=== PATIENT | female | born 1935 | race Caucasian/White ===

== ENCOUNTER 2023-10-05 11:08 | Inpatient (IN) ==
[2023-10-05 13:38] LABS: BASOPHILS % (AUTO) 0.6 % (0.2-1.0); EOSINOPHILS # (AUTO) 0.1 x10^3/uL (0.0-0.2); HEMATOCRIT 35.9 % (36.0-47.0); HEMOGLOBIN 11.9 g/dL (12.0-16.0); LYMPHOCYTES # (AUTO) 0.8 X10^3/uL (1.3-2.9); LYMPHOCYTES % (AUTO) 13.7 % (21.0-51.0); MEAN CORPUSCULAR HEMOGLOBIN 31.8 pg (27.0-34.0); MEAN CORPUSCULAR HGB CONC 33.3 g/dL (33.0-35.0); MEAN CORPUSCULAR VOLUME 95.5 fL (80.0-100.0); MEAN PLATELET VOLUME 7.2 fL (7.4-11.0); MONOCYTES # (AUTO) 0.5 x10^3/uL (0.3-0.8); NEUTROPHILS # (AUTO) 4.2 x10^3/uL (2.2-4.8); NEUTROPHILS % (AUTO) 74.7 % (42.0-75.0); PLATELET COUNT 202 X10^3/uL (150.0-450.0); RED BLOOD COUNT 3.76 X10^6/uL (3.5-5.4); RED CELL DISTRIBUTION WIDTH 15.6 % (11.6-16.5); WHITE BLOOD COUNT 5.6 X10^3/uL (3.6-10.0)
[2023-10-05 13:47] LABS: ALANINE AMINOTRANSFERASE 30 Units/L (12-78); ALBUMIN 2.9 g/dL (3.4-5.0); ALKALINE PHOSPHATASE 120 Units/L (46-116); ASPARTATE AMINO TRANSFERASE 27 Units/L (15-37); BLOOD UREA NITROGEN 12 mg/dL (7-18); CALCIUM 8.4 mg/dL (8.5-10.1); CARBON DIOXIDE 27.2 mmol/L (21-32); CHLORIDE 104 mmol/L (98-107); COR CA(FOR HYPOALB) 9.3 mg/dL (8.5-10.1); CREATININE 0.69 mg/dL (0.55-1.02); GLUCOSE 86 mg/dL (65-99); POTASSIUM 4.4 mmol/L (3.5-5.1); SODIUM 137 mmol/L (136-145); TOTAL PROTEIN 6.4 g/dL (6.4-8.2); eGFR NON BLACK RACES > 60 (>60)
[2023-10-05] MEDS ORDERED: VANCOMYCIN IV *PREMIX 750 mg/150 ML BAG 750 MG/150 ML PIGGYBACK IV SCH (14:00)
[2023-10-05] MEDS ORDERED: PHARMACY CONSULT - VANCOMYCIN XX SCH (14:00)
[2023-10-05] MEDS: ZOSYN VIAL 3.375 GRAMS 3.375 G in NS 100 ML IV 100 ML IV SCH ×3 (14:09→21:11)
[2023-10-05] MEDS ORDERED: NS 250 ML IV 250 ML IV ONE (14:20)
[2023-10-05] MEDS: CLEOCIN 300 MG IV PREMIX 300 MG/50 ML BAG IV SCH ×2 (15:00→21:10)
[2023-10-05 16:49] VITALS: BMI 26.4
[2023-10-05] MEDS: VANCOMYCIN IV *PREMIX 750 mg/150 ML BAG 750 MG/150 ML PIGGYBACK IV SCH (18:27)
[2023-10-05] MEDS: PERCOCET TAB 5/325 MG PO PRN (19:52)
--- NOTE | 2023-10-05 23:48 | DR.CONSULT ---
CONSULT Consultation for Day of: Date: 10/05/23 Chief Complaint Chief Complaint: 88 year old female who I have seen in the past for bilateral iliac vein compression who has had bilateral iliac vein stenting. Patient now admitted with cellulitis and open small ulcers over the right anterior tibial surface. Previous history of deep Venous Thrombosis of the right leg many years ago. Patient on chronic anticoagulation. I was asked to see her in consultation. Patient past history of coronary artery disease that has multiple coronary stents placed and history [place] filter placement. Patient with known bilateral greater saphenous vein insufficiency and bilateral small saphenous vein insufficiency. She was supposed to have endo vascular laser ablation of these but she never presented back to my office for such. Allergies Allergies Allergy/AdvReac Type Severity Reaction Status Date / Time cefdinir Allergy Unknown Verified 05/10/22 11:31 levofloxacin [Levaquin] Allergy Unknown Verified 02/13/13 11:24 sulfacetamide Allergy Unknown Verified 05/10/22 11:31 sulfamethoxazole [Septra] Allergy Unknown Verified 03/29/22 12:57 trimethoprim [Septra] Allergy Unknown Verified 03/29/22 12:57 nitrofurantoin Allergy Verified 08/29/21 09:16 [From Macrobid] Sulfa (Sulfonamide Allergy Verified 08/29/21 09:16 Antibiotics) [SULFA] Microbore Extension Set Allergy Unknown Uncoded 02/13/13 11:24 *MEDIC History of Present Illness History of Present Illness: See above Patient admitted for IV antibiotics . Past Medical History Past Medical History: Coronary Artery Disease, Dyslipidemia, Hypertension and Hypothyroidism Past Surgical History Surgical History: Angioplasty/Stents, Hysterectomy and Other (history of [place] filter placement, history of bilateral iliac vein stenting. ) Family History Family Medical History: Coronary Artery Disease Social History Does patient currently use any type of tobacco product: No Have you used tobacco products in the last 12 months: No Type of Tobacco Use: None Does any household member use tobacco: No Alcohol Use: None Drug Use: None Medications Home Medications: cefdinir Allergy (Unknown, Verified 05/10/22 11:31) levofloxacin [Levaquin] Allergy (Unknown, Verified 02/13/13 11:24) sulfacetamide Allergy (Unknown, Verified 05/10/22 11:31) sulfamethoxazole [Septra] Allergy (Unknown, Verified 03/29/22 12:57) trimethoprim [Septra] Allergy (Unknown, Verified 03/29/22 12:57) nitrofurantoin [From Macrobid] Allergy (Verified 08/29/21 09:16) Sulfa (Sulfonamide Antibiotics) [SULFA] Allergy (Verified 08/29/21 09:16) Microbore Extension Set *MEDIC Allergy (Unknown, Uncoded 02/13/13 11:24) CONTINUE taking the following medications levothyroxine 50 mcg tablet 50 mcg PO 0700 10/05/23 [History] Coumadin 2 mg daily atorvastatin 40 mg daily Plavix 75 mg daily metoprolol 25 mg BID levothyroxine 137 micrograms daily Review of Systems Constitutional: See HPI Eyes: No Symptoms Reported ENT: No Symptoms Reported Respiratory: No Symptoms Reported Cardiovascular: No Symptoms Reported Gastrointestinal: No Symptoms Reported Genitourinary: Other (complaining of bilateral flank pain ) Musculoskeletal: See HPI Skin: See HPI Neurological: No Symptoms Reported Physical Exam Vital Signs: Vital Signs Temperature 97.7 F Temperature 97.7 F Pulse Rate 61 Pulse Rate 61 Pulse Rate 64 Pulse Rate 72 Pulse Rate 81 Pulse Rate 80 Pulse Rate 69 Respiratory Rate 20 Respiratory Rate 14 Respiratory Rate 17 Respiratory Rate 18 Respiratory Rate 18 Respiratory Rate 18 Respiratory Rate 16 Respiratory Rate 17 Respiratory Rate 17 Blood Pressure 125/60 Blood Pressure 117/57 Blood Pressure 118/55 Blood Pressure 151/68 Blood Pressure 140/73 Blood Pressure 161/76 Blood Pressure 134/62 O2 Sat by Pulse Oximetry 97 O2 Sat by Pulse Oximetry 95 O2 Sat by Pulse Oximetry 96 O2 Sat by Pulse Oximetry 97 O2 Sat by Pulse Oximetry 96 O2 Sat by Pulse Oximetry 96 O2 Sat by Pulse Oximetry 97 Oriented: Normal, Time, Person, Place and Other (patient lives at home , patient is morbidly obese ) Eyes: Normal Ear: Normal Nose: Normal Throat: Normal Respiratory: Clear Throughout Cardiovascular: Normal : Other (complains of bilateral flank pain, no obvious tenderness ) Auscultation: Bowel Sounds: Normal Palpation: Normal Tenderness: Normal Skin: Other (significant swelling both legs right greater than left. Mild er ythema right anterior tibial surface with multiple small ulcers each less than 1 cm over the anterior tibial surface ) Mood Description: Calm, Flat and Appropriate Affect: Normal Speech Pattern: Appropriate Plan (1) Chronic venous stasis dermatitis of both lower extremities: Status: Acute Plan: Patient on IV antibiotics. History of bilateral iliac vein stenting in the past. History of DVT right leg in the past. Known significant insufficiency of the greater saphenous veins and small saphenous veins which have yet to be addressed . Once [place] cellulitis is resolved can plan endo vascular laser treatment of these peripheral veins in my office later (2) Pain and swelling of lower extremity: Status: Acute Qualifiers: Laterality: left Qualified Code(s): M79.605 - Pain in left leg; M79.89 - Other specified soft tissue disorders Plan: as above (3) Coronary artery disease: Status: None Qualifiers: Coronary Disease-Associated Artery/Lesion type: unspecified vessel or lesion type [place] vs. transplanted heart: [place] heart Associated angina: with unspecified form of angina Qualified Code(s): I25.119 - Atherosclerotic heart disease of [place] coronary artery with unspecified angina pectoris Plan: stable (4) History of pulmonary embolism: Status: None Plan: Continue Plavix and begin Xarelto (5) Hypertension: Status: None Qualifiers: Hypertension type: primary hypertension Qualified Code(s): I10 - Essential (primary) hypertension Plan: home medicatiosn (6) Hyperlipidemia: Status: None Narrative Support Text: * Plan: home medicatiosn (7) Hypothyroidism: Status: None Plan: home medications
[2023-10-06] MEDS: CLEOCIN 300 MG IV PREMIX 300 MG/50 ML BAG IV SCH ×3 (05:08→21:08)
[2023-10-06] MEDS: VANCOMYCIN IV *PREMIX 750 mg/150 ML BAG 750 MG/150 ML PIGGYBACK IV SCH ×2 (05:08→20:11)
[2023-10-06] MEDS: ZOSYN VIAL 3.375 GRAMS 3.375 G in NS 100 ML IV 100 ML IV SCH ×3 (05:10→21:08)
[2023-10-06 05:31] LABS: BASOPHILS # (AUTO) 0.1 X10^3/uL (0.0-0.1); BASOPHILS % (AUTO) 2.9 % (0.2-1.0); EOSINOPHILS # (AUTO) 0.2 x10^3/uL (0.0-0.2); EOSINOPHILS % (AUTO) 4.3 % (0.9-2.9); HEMATOCRIT 31.8 % (36.0-47.0); HEMOGLOBIN 10.6 g/dL (12.0-16.0); LYMPHOCYTES # (AUTO) 0.8 X10^3/uL (1.3-2.9); LYMPHOCYTES % (AUTO) 15.9 % (21.0-51.0); MEAN CORPUSCULAR HEMOGLOBIN 31.4 pg (27.0-34.0); MEAN CORPUSCULAR HGB CONC 33.3 g/dL (33.0-35.0); MEAN CORPUSCULAR VOLUME 94.4 fL (80.0-100.0); MEAN PLATELET VOLUME 7.7 fL (7.4-11.0); MONOCYTES # (AUTO) 0.5 x10^3/uL (0.3-0.8); MONOCYTES % (AUTO) 10.5 % (0.0-13.0); NEUTROPHILS # (AUTO) 3.3 x10^3/uL (2.2-4.8); NEUTROPHILS % (AUTO) 66.4 % (42.0-75.0); PLATELET COUNT 174 X10^3/uL (150.0-450.0); RED BLOOD COUNT 3.37 X10^6/uL (3.5-5.4); RED CELL DISTRIBUTION WIDTH 15.6 % (11.6-16.5); WHITE BLOOD COUNT 4.9 X10^3/uL (3.6-10.0)
[2023-10-06 05:47] LABS: ALANINE AMINOTRANSFERASE 22 Units/L (12-78); ALBUMIN 2.6 g/dL (3.4-5.0); ALKALINE PHOSPHATASE 105 Units/L (46-116); ASPARTATE AMINO TRANSFERASE 22 Units/L (15-37); BLOOD UREA NITROGEN 11 mg/dL (7-18); CALCIUM 8.2 mg/dL (8.5-10.1); CARBON DIOXIDE 27.2 mmol/L (21-32); CHLORIDE 106 mmol/L (98-107); COR CA(FOR HYPOALB) 9.3 mg/dL (8.5-10.1); CREATININE 0.71 mg/dL (0.55-1.02); GLUCOSE 79 mg/dL (65-99); POTASSIUM 3.9 mmol/L (3.5-5.1); SODIUM 139 mmol/L (136-145); TOTAL PROTEIN 5.7 g/dL (6.4-8.2); eGFR NON BLACK RACES > 60 (>60)
[2023-10-06] MEDS: SYNTHROID 137 mcg TAB PO SCH (05:47)
[2023-10-06] MEDS: PERCOCET TAB 5/325 MG PO PRN ×2 (05:48→18:58)
[2023-10-06] MEDS ORDERED: XARELTO PO SCH (09:00)
[2023-10-06] MEDS ORDERED: LIPITOR TAB 40 MG PO SCH (09:00)
[2023-10-06] MEDS: LOPRESSOR TAB 25 MG PO SCH ×2 (09:26→20:11)
[2023-10-06] MEDS: PLAVIX PO SCH (09:26)
--- NOTE | 2023-10-06 09:44 | VAS ---
EXAM:LEVBILBCHRight lower extremity DVT Doppler ultrasound examination.HISTORY:JOSE LOWER EXT SWELLING, CELLULITIS RLE; Lower extremity pain, swelling, and edemaCOMPARISON:None.TECHNIQUE:Ultrasoun d of the deep venous vasculature of the right lower extremity was performed. Color and spectral doppler imaging was utilized.FINDINGS:The deep veins of the right lower extremity demonstrate an occlusive DVT which extends from right common femoral vein into right popliteal vein.No DVT seen within the deep venous system of the left lower extremity in this patient.These results were communicated to the clinical service at the time of this report by call support.IMPRESSION:Positive examination for DVT.There is an occlusive DVT in the right lower extremity which extends from the right common femoral vein into the right popliteal vein.No DVT is appreciated within the deep venous system of the left lower extremity.THIS IS AN ELECTRONICALLY VERIFIED FINAL REPORT10/06/2023 9:41 AM - Electronically signed by Noah Byrd
[2023-10-06 11:12] LABS: BILIRUBIN,URINE NEGATIVE (NEGATIVE); BLOOD/HEMOGLOBIN,URINE 2+ (NEGATIVE); GLUCOSE, URINE NEGATIVE (NEGATIVE); KETONES,URINE NEGATIVE (NEGATIVE); LEUKOCYTE ESTERASE ,URINE 1+ (NEGATIVE); NITRITES,URINE NEGATIVE (NEGATIVE); PROTEIN,URINE 1+ (NEGATIVE); UROBILINOGEN,URINE NORMAL (NORMAL)
--- NOTE | 2023-10-06 11:15 | DR.H&P ---
H&P History & Physical for Day of: H&P Date: 10/05/23 Chief Complaint Chief Complaint: worsening LE redness and swelling Allergies Allergies Allergy/AdvReac Type Severity Reaction Status Date / Time cefdinir Allergy Unknown Verified 05/10/22 11:31 levofloxacin [Levaquin] Allergy Unknown Verified 02/13/13 11:24 sulfacetamide Allergy Unknown Verified 05/10/22 11:31 sulfamethoxazole [Septra] Allergy Unknown Verified 03/29/22 12:57 trimethoprim [Septra] Allergy Unknown Verified 03/29/22 12:57 nitrofurantoin Allergy Verified 08/29/21 09:16 [From Macrobid] Sulfa (Sulfonamide Allergy Verified 08/29/21 09:16 Antibiotics) [SULFA] Microbore Extension Set Allergy Unknown Uncoded 02/13/13 11:24 *MEDIC History of Present Illness History of Present Illness: Ms Linder is a 88y/o female with a PMH of CAD, PVD s/p stenting, chronic venous insufficiency, hx of DVT, IVC filter presented with worsening LE redness and swelling. Patient has had recurrent admissions for LE cellulitis. She it not much ambulatory and lives alone. Son states she has not been able to take care of herself. She has been having clear drainage from the right leg. She was admitted for IV antibiotics and evaluation by surgery. Labs/imaging reviewed Plan: routine labs CBC, CMP. Consult surgery. Wound care as per nursing, keep leg elevated. Start IV Vancomycin, clindamycin and Zosyn. Resume home medications. Monitor AM labs/imaging. Past Medical History Past Medical History: Coronary Artery Disease, Dyslipidemia, Hypertension and Hypothyroidism Past Surgical History Surgical History: Angioplasty/Stents, Hysterectomy and Other (history of [place] filter placement, history of bilateral iliac vein stenting. ) Family History Family Medical History: Coronary Artery Disease Social History Does patient currently use any type of tobacco product: No Have you used tobacco products in the last 12 months: No Type of Tobacco Use: None Does any household member use tobacco: No Alcohol Use: None Drug Use: None Medications Home Medications: Home Medications Medication Instructions Recorded Confirmed Type oxycodone-acetaminophen 5 mg-325 1 tab PO Q8H PRN pain 09/26/23 10/05/23 History mg tablet levothyroxine 50 mcg tablet 50 mcg PO 0700 10/05/23 10/05/23 History Labs 10/06/23 04:10 10/06/23 04:10 Labs: Laboratory WBC 4.9 X10^3/uL (3.6-10.0) 10/06/23 04:10 RBC 3.37 X10^6/uL (3.5-5.4) L 10/06/23 04:10 Hgb 10.6 g/dL (12.0-16.0) L 10/06/23 04:10 Hct 31.8 % (36.0-47.0) L 10/06/23 04:10 MCV 94.4 fL (80.0-100.0) 10/06/23 04:10 MCH 31.4 pg (27.0-34.0) 10/06/23 04:10 MCHC 33.3 g/dL (33.0-35.0) 10/06/23 04:10 RDW 15.6 % (11.6-16.5) 10/06/23 04:10 Plt Count 174 X10^3/uL (150.0-450.0) 10/06/23 04:10 MPV 7.7 fL (7.4-11.0) 10/06/23 04:10 Neut % (Auto) 66.4 % (42.0-75.0) 10/06/23 04:10 Lymph % (Auto) 15.9 % (21.0-51.0) L 10/06/23 04:10 [place] % (Auto) 10.5 % (0.0-13.0) 10/06/23 04:10 Eos % (Auto) 4.3 % (0.9-2.9) H 10/06/23 04:10 Baso % (Auto) 2.9 % (0.2-1.0) H 10/06/23 04:10 Neut # (Auto) 3.3 x10^3/uL (2.2-4.8) 10/06/23 04:10 Lymph # (Auto) 0.8 X10^3/uL (1.3-2.9) L 10/06/23 04:10 [place] # (Auto) 0.5 x10^3/uL (0.3-0.8) 10/06/23 04:10 Eos # (Auto) 0.2 x10^3/uL (0.0-0.2) 10/06/23 04:10 Baso # (Auto) 0.1 X10^3/uL (0.0-0.1) 10/06/23 04:10 Absolute Nucleated RBC 0.0 /100WBC 10/06/23 04:10 Sodium 139 mmol/L (136-145) 10/06/23 04:10 Corrected Sodium TNP 10/06/23 04:10 Potassium 3.9 mmol/L (3.5-5.1) 10/06/23 04:10 Chloride 106 mmol/L (98-107) 10/06/23 04:10 Carbon Dioxide 27.2 mmol/L (21-32) 10/06/23 04:10 BUN 11 mg/dL (7-18) 10/06/23 04:10 Creatinine 0.71 mg/dL (0.55-1.02) 10/06/23 04:10 Est GFR (MDRD) Af Amer > 60 (>60) 10/06/23 04:10 Est GFR (MDRD) Non-Af > 60 (>60) 10/06/23 04:10 Glucose 79 mg/dL (65-99) 10/06/23 04:10 Calcium 8.2 mg/dL (8.5-10.1) L 10/06/23 04:10 Corrected Calcium 9.3 mg/dL (8.5-10.1) 10/06/23 04:10 Total Bilirubin 0.50 mg/dL (0.2-1.0) 10/06/23 04:10 AST 22 Units/L (15-37) 10/06/23 04:10 ALT 22 Units/L (12-78) 10/06/23 04:10 Alkaline Phosphatase 105 Units/L (46-116) 10/06/23 04:10 Total Protein 5.7 g/dL (6.4-8.2) L 10/06/23 04:10 Albumin 2.6 g/dL (3.4-5.0) L 10/06/23 04:10 Globulin 3.1 g/dL (2.5-4.5) 10/06/23 04:10 Albumin/Globulin Ratio 0.8 Ratio (1.1-2.1) L 10/06/23 04:10 Review of Systems Constitutional: Weakness Eyes: No Symptoms Reported ENT: No Symptoms Reported Respiratory: No Symptoms Reported Cardiovascular: No Symptoms Reported Gastrointestinal: No Symptoms Reported Genitourinary: Other (complaining of bilateral flank pain ) Musculoskeletal: See HPI Skin: See HPI Neurological: No Symptoms Reported Physical Exam Vital Signs: Vital Signs Temperature 98.1 F Pulse Rate 77 Pulse Rate 71 Pulse Rate 71 Pulse Rate 56 Pulse Rate 68 Pulse Rate 77 Pulse Rate 66 Pulse Rate 66 Pulse Rate 62 Pulse Rate 69 Pulse Rate 62 Pulse Rate 62 Pulse Rate 59 Pulse Rate 62 Respiratory Rate 12 Respiratory Rate 14 Respiratory Rate 17 Respiratory Rate 13 Respiratory Rate 16 Respiratory Rate 18 Respiratory Rate 24 Respiratory Rate 18 Respiratory Rate 15 Respiratory Rate 18 Respiratory Rate 12 Respiratory Rate 20 Respiratory Rate 16 Respiratory Rate 22 Respiratory Rate 12 Respiratory Rate 18 Blood Pressure 106/56 Blood Pressure 130/63 Blood Pressure 95/50 Blood Pressure 122/65 Blood Pressure 122/65 Blood Pressure 128/66 Blood Pressure 128/65 Blood Pressure 124/58 Blood Pressure 124/58 Blood Pressure 117/62 Blood Pressure 117/62 Blood Pressure 111/55 Blood Pressure 111/55 O2 Sat by Pulse Oximetry 96 O2 Sat by Pulse Oximetry 99 O2 Sat by Pulse Oximetry 99 O2 Sat by Pulse Oximetry 95 O2 Sat by Pulse Oximetry 96 O2 Sat by Pulse Oximetry 96 O2 Sat by Pulse Oximetry 97 O2 Sat by Pulse Oximetry 97 O2 Sat by Pulse Oximetry 96 O2 Sat by Pulse Oximetry 97 O2 Sat by Pulse Oximetry 96 O2 Sat by Pulse Oximetry 97 O2 Sat by Pulse Oximetry 95 O2 Sat by Pulse Oximetry 97 Oriented: Normal Respiratory: Diminished Throughout Cardiovascular: Normal Auscultation: Bowel Sounds: Normal Palpation: Normal Musculoskeletal: Leg (B/L chronic edema. Right leg: worsening erythema, weeping blisters with clear fluid, tender ) Psychiatric: Normal Mood Description: Calm Affect: Normal Speech Pattern: Clear and Appropriate Assessment/Plan (1) Cellulitis: Qualifiers: Laterality: left Site of cellulitis: extremity Site of cellulitis of extremity: lower extremity Qualified Code(s): L03.116 - Cellulitis of left lower limb Status: Acute (2) Chronic venous stasis dermatitis of both lower extremities: Status: Acute (3) Chronic venous insufficiency: Status: Acute (4) Pain and swelling of lower extremity: Qualifiers: Laterality: left Qualified Code(s): M79.605 - Pain in left leg; M79.89 - Other specified soft tissue disorders Status: Acute (5) Generalized weakness: Status: Acute (6) Coronary artery disease: Qualifiers: Associated angina: with unspecified form of angina Coronary Disease- Associated Artery/Lesion type: unspecified vessel or lesion type [place] vs. transplanted heart: [place] heart Qualified Code(s): I25.119 - Atherosclerotic heart disease of [place] coronary artery with unspecified angina pectoris Status: None (7) History of pulmonary embolism: Status: None (8) Hypertension: Qualifiers: Hypertension type: primary hypertension Qualified Code(s): I10 - Essential (primary) hypertension Status: None
--- NOTE | 2023-10-06 11:20 | PCM.PROG ---
Progress Note Progress Note for Day of Date of Exam: 10/06/23 Subjective Subjective: Patient seen at bedside, no acute events overnight. She continues to have leg pain. Her right leg looks the same with erythema and clear drainage. LE US did show right leg DVT. She is currently receiving IV antibiotics and pain medicine. Labs/imaging reviewed US: RLE occlusive DVT Plan: continue current treatment with IV antibiotics. Follow surgery recommendations. Continue anti-coagulation and other home medications. Will place peres as patient is not able to ambulate to the bathroom or use a bed [place]. Monitor AM labs/imaging. Past Medical Family Social History Allergies: Allergies cefdinir Allergy (Unknown, Verified 05/10/22 11:31) Reason: Drug allergy levofloxacin [Levaquin] Allergy (Unknown, Verified 02/13/13 11:24) sulfacetamide Allergy (Unknown, Verified 05/10/22 11:31) Reason: Drug allergy sulfamethoxazole [Septra] Allergy (Unknown, Verified 03/29/22 12:57) Reason: Drug allergy trimethoprim [Septra] Allergy (Unknown, Verified 03/29/22 12:57) Reason: Drug allergy nitrofurantoin [From Macrobid] Allergy (Verified 08/29/21 09:16) Sulfa (Sulfonamide Antibiotics) [SULFA] Allergy (Verified 08/29/21 09:16) Microbore Extension Set *MEDIC Allergy (Unknown, Uncoded 02/13/13 11:24) Free Text Allergy: Microbore Extension Set *MEDICAL DEVICES* Vital Signs and I&O's Vital Signs: Vital Signs Temperature 98.1 F Pulse Rate 61 Pulse Rate 65 Pulse Rate 77 Pulse Rate 71 Pulse Rate 71 Pulse Rate 56 Pulse Rate 68 Pulse Rate 77 Pulse Rate 66 Pulse Rate 66 Pulse Rate 62 Pulse Rate 69 Respiratory Rate 22 Respiratory Rate 11 Respiratory Rate 12 Respiratory Rate 14 Respiratory Rate 17 Respiratory Rate 13 Respiratory Rate 16 Respiratory Rate 18 Respiratory Rate 24 Respiratory Rate 18 Respiratory Rate 15 Respiratory Rate 18 Respiratory Rate 12 Respiratory Rate 20 Blood Pressure 133/72 Blood Pressure 106/56 Blood Pressure 130/63 Blood Pressure 95/50 Blood Pressure 122/65 Blood Pressure 122/65 Blood Pressure 128/66 Blood Pressure 128/65 Blood Pressure 124/58 Blood Pressure 124/58 O2 Sat by Pulse Oximetry 98 O2 Sat by Pulse Oximetry 96 O2 Sat by Pulse Oximetry 96 O2 Sat by Pulse Oximetry 99 O2 Sat by Pulse Oximetry 99 O2 Sat by Pulse Oximetry 95 O2 Sat by Pulse Oximetry 96 O2 Sat by Pulse Oximetry 96 O2 Sat by Pulse Oximetry 97 O2 Sat by Pulse Oximetry 97 O2 Sat by Pulse Oximetry 96 O2 Sat by Pulse Oximetry 97 Intake and Output: Intake & Output 10/03/23 10/04/23 10/05/23 10/06/23 23:59 23:59 23:59 23:59 Intake Total 500 / 500 330 / 330 Output Total 400 / 400 Balance 100 / 100 330 / 330 Physical Exam Oriented: Normal Eyes: Normal Ear: Normal Nose: Normal Throat: Normal Cardiovascular: Normal Auscultation: Bowel Sounds: Normal Tenderness: Normal Skin: Other (significant swelling both legs right greater than left. Mild erythema right anterior tibial surface with multiple small ulcers each less than 1 cm over the anterior tibial surface ) Musculoskeletal: Leg (B/L chronic edema. Right leg: worsening erythema, weeping blisters with clear fluid, tender ) Psychiatric: Normal Mood Description: Calm Affect: Normal Speech Pattern: Clear and Appropriate Laboratory and Diagnostics 10/06/23 04:10 10/06/23 04:10 Labs: Laboratory WBC 4.9 X10^3/uL (3.6-10.0) 10/06/23 04:10 RBC 3.37 X10^6/uL (3.5-5.4) L 10/06/23 04:10 Hgb 10.6 g/dL (12.0-16.0) L 10/06/23 04:10 Hct 31.8 % (36.0-47.0) L 10/06/23 04:10 MCV 94.4 fL (80.0-100.0) 10/06/23 04:10 MCH 31.4 pg (27.0-34.0) 10/06/23 04:10 MCHC 33.3 g/dL (33.0-35.0) 10/06/23 04:10 RDW 15.6 % (11.6-16.5) 10/06/23 04:10 Plt Count 174 X10^3/uL (150.0-450.0) 10/06/23 04:10 MPV 7.7 fL (7.4-11.0) 10/06/23 04:10 Neut % (Auto) 66.4 % (42.0-75.0) 10/06/23 04:10 Lymph % (Auto) 15.9 % (21.0-51.0) L 10/06/23 04:10 [place] % (Auto) 10.5 % (0.0-13.0) 10/06/23 04:10 Eos % (Auto) 4.3 % (0.9-2.9) H 10/06/23 04:10 Baso % (Auto) 2.9 % (0.2-1.0) H 10/06/23 04:10 Neut # (Auto) 3.3 x10^3/uL (2.2-4.8) 10/06/23 04:10 Lymph # (Auto) 0.8 X10^3/uL (1.3-2.9) L 10/06/23 04:10 [place] # (Auto) 0.5 x10^3/uL (0.3-0.8) 10/06/23 04:10 Eos # (Auto) 0.2 x10^3/uL (0.0-0.2) 10/06/23 04:10 Baso # (Auto) 0.1 X10^3/uL (0.0-0.1) 10/06/23 04:10 Absolute Nucleated RBC 0.0 /100WBC 10/06/23 04:10 Sodium 139 mmol/L (136-145) 10/06/23 04:10 Corrected Sodium TNP 10/06/23 04:10 Potassium 3.9 mmol/L (3.5-5.1) 10/06/23 04:10 Chloride 106 mmol/L (98-107) 10/06/23 04:10 Carbon Dioxide 27.2 mmol/L (21-32) 10/06/23 04:10 BUN 11 mg/dL (7-18) 10/06/23 04:10 Creatinine 0.71 mg/dL (0.55-1.02) 10/06/23 04:10 Est GFR (MDRD) Af Amer > 60 (>60) 10/06/23 04:10 Est GFR (MDRD) Non-Af > 60 (>60) 10/06/23 04:10 Glucose 79 mg/dL (65-99) 10/06/23 04:10 Calcium 8.2 mg/dL (8.5-10.1) L 10/06/23 04:10 Corrected Calcium 9.3 mg/dL (8.5-10.1) 10/06/23 04:10 Total Bilirubin 0.50 mg/dL (0.2-1.0) 10/06/23 04:10 AST 22 Units/L (15-37) 10/06/23 04:10 ALT 22 Units/L (12-78) 10/06/23 04:10 Alkaline Phosphatase 105 Units/L (46-116) 10/06/23 04:10 Total Protein 5.7 g/dL (6.4-8.2) L 10/06/23 04:10 Albumin 2.6 g/dL (3.4-5.0) L 10/06/23 04:10 Globulin 3.1 g/dL (2.5-4.5) 10/06/23 04:10 Albumin/Globulin Ratio 0.8 Ratio (1.1-2.1) L 10/06/23 04:10 Plan (1) Cellulitis: Status: Acute Qualifiers: Laterality: left Site of cellulitis: extremity Site of cellulitis of extremity: lower extremity Qualified Code(s): L03.116 - Cellulitis of left lower limb (2) Chronic venous stasis dermatitis of both lower extremities: Status: Acute (3) Chronic venous insufficiency: Status: Acute (4) Pain and swelling of lower extremity: Status: Acute Qualifiers: Laterality: left Qualified Code(s): M79.605 - Pain in left leg; M79.89 - Other specified soft tissue disorders (5) Generalized weakness: Status: Acute (6) Coronary artery disease: Status: None Qualifiers: Associated angina: with unspecified form of angina Coronary Disease- Associated Artery/Lesion type: unspecified vessel or lesion type [place] vs. transplanted heart: [place] heart Qualified Code(s): I25.119 - Atherosclerotic heart disease of [place] coronary artery with unspecified angina pectoris (7) History of pulmonary embolism: Status: None (8) Hypertension: Status: None Qualifiers: Hypertension type: primary hypertension Qualified Code(s): I10 - Essential (primary) hypertension
[2023-10-06 11:25] LABS: APPEARANCE,URINE CLEAR (CLEAR); COLOR,URINE YELLOW (YELLOW)
[2023-10-06 11:27] LABS: BACTERIA,URINE 1+ /HPF (NEGATIVE); CALCIUM OXALATE CRYSTALS,UR MODERATE /HPF (NEGATIVE); SQUAMOUS EPITHELIAL CELL,UR MANY /HPF (NEGATIVE)
[2023-10-06] MEDS ORDERED: HEPARIN SODIUM INJ 5000 UNITS IVP ONE (13:00)
[2023-10-06 13:55] LABS: INR 1.36 (0.8-1.3)
[2023-10-06] MEDS: HEPARIN SODIUM IN D5W 25,000 UNITS/500 ML BAG IV PRN (14:00)
[2023-10-06] MEDS: LIPITOR TAB 40 MG PO SCH (20:11)
--- NOTE | 2023-10-06 23:56 | NOTE.SOAP ---
Soap Note Note for Day of Date of Exam: 10/06/23 Subjective Data Subjective Data: Patient a little more confused today. Objective Data Temperature: 98.2 F Pulse Rate: 54 Respiratory Rate: 16 Blood Pressure: 134/64 O2 Sat by Pulse Oximetry: 97 Objective Data: Right leg unchanged. Still with mild redness and small ulcers to the right anterior tibial surface. U/S shows new deep venous thrombosis of the entire right femoral vein. Assessment Assessment: DVT right leg Plan Plan: Begin heparin drip, stop po Xarelto. Will plan thrombolysis of the venous clot.
[2023-10-07 03:04] LABS: BASOPHILS # (AUTO) 0.1 X10^3/uL (0.0-0.1); BASOPHILS % (AUTO) 1.4 % (0.2-1.0); EOSINOPHILS # (AUTO) 0.2 x10^3/uL (0.0-0.2); EOSINOPHILS % (AUTO) 3.6 % (0.9-2.9); HEMATOCRIT 30.9 % (36.0-47.0); HEMOGLOBIN 10.3 g/dL (12.0-16.0); LYMPHOCYTES # (AUTO) 0.9 X10^3/uL (1.3-2.9); LYMPHOCYTES % (AUTO) 17.9 % (21.0-51.0); MEAN CORPUSCULAR HEMOGLOBIN 31.7 pg (27.0-34.0); MEAN CORPUSCULAR HGB CONC 33.4 g/dL (33.0-35.0); MEAN CORPUSCULAR VOLUME 94.8 fL (80.0-100.0); MEAN PLATELET VOLUME 7.5 fL (7.4-11.0); MONOCYTES # (AUTO) 0.5 x10^3/uL (0.3-0.8); MONOCYTES % (AUTO) 10.4 % (0.0-13.0); NEUTROPHILS # (AUTO) 3.5 x10^3/uL (2.2-4.8); NEUTROPHILS % (AUTO) 66.7 % (42.0-75.0); PLATELET COUNT 166 X10^3/uL (150.0-450.0); RED BLOOD COUNT 3.25 X10^6/uL (3.5-5.4); RED CELL DISTRIBUTION WIDTH 15.6 % (11.6-16.5); WHITE BLOOD COUNT 5.2 X10^3/uL (3.6-10.0)
[2023-10-07 03:07] LABS: ALANINE AMINOTRANSFERASE 19 Units/L (12-78); ALBUMIN 2.4 g/dL (3.4-5.0); ALKALINE PHOSPHATASE 98 Units/L (46-116); ASPARTATE AMINO TRANSFERASE 19 Units/L (15-37); BLOOD UREA NITROGEN 14 mg/dL (7-18); CALCIUM 7.9 mg/dL (8.5-10.1); CARBON DIOXIDE 24.1 mmol/L (21-32); CHLORIDE 105 mmol/L (98-107); COR CA(FOR HYPOALB) 9.2 mg/dL (8.5-10.1); COR NA(FOR HYPERGLY) 137 mmol/L (136-145); CREATININE 0.75 mg/dL (0.55-1.02); GLUCOSE 115 mg/dL (65-99); SODIUM 137 mmol/L (136-145); TOTAL PROTEIN 5.6 g/dL (6.4-8.2); eGFR NON BLACK RACES > 60 (>60)
[2023-10-07] MEDS ORDERED: HEPARIN SODIUM INJ 5000 UNITS IVP ONE ×2 (03:16→16:08)
[2023-10-07] MEDS: NS 500 ML IV 500 ML IV PRN (05:04)
[2023-10-07] MEDS: CLEOCIN 300 MG IV PREMIX 300 MG/50 ML BAG IV SCH ×3 (05:04→21:08)
[2023-10-07] MEDS: ZOSYN VIAL 3.375 GRAMS 3.375 G in NS 100 ML IV 100 ML IV SCH ×3 (05:04→21:08)
[2023-10-07] MEDS: SYNTHROID 137 mcg TAB PO SCH (05:31)
[2023-10-07] MEDS: PERCOCET TAB 5/325 MG PO PRN ×3 (06:23→20:10)
[2023-10-07] MEDS ORDERED: PHARMACY COMMENT IV NR (08:00)
[2023-10-07 08:44] LABS: CREATININE 0.65 mg/dL (0.55-1.02)
[2023-10-07] MEDS: PLAVIX PO SCH (09:35)
[2023-10-07] MEDS: VANCOMYCIN IV *PREMIX 750 mg/150 ML BAG 750 MG/150 ML PIGGYBACK IV SCH ×2 (09:40→20:09)
[2023-10-07] MEDS: LOPRESSOR TAB 25 MG PO SCH ×2 (10:00→20:10)
--- NOTE | 2023-10-07 10:05 | PCM.PROG ---
Progress Note Progress Note for Day of Date of Exam: 10/07/23 Subjective Subjective: Patient seen at bedside, no acute events overnight. She was started on heparin drip as per Dr Mccracken. He plans to do thrombolysis tomorrow for right leg DVT. She is currently receiving IV antibiotics and pain medicine. Her leg redness does look slightly better today. Labs/imaging reviewed US: RLE occlusive DVT Plan: continue current treatment with IV antibiotics. Follow surgery re commendations. Continue IV heparin. Plan for thrombolysis tomorrow. Add colace prn and melatonin. Monitor AM labs/imaging. Past Medical Family Social History Allergies: Allergies cefdinir Allergy (Unknown, Verified 05/10/22 11:31) Reason: Drug allergy levofloxacin [Levaquin] Allergy (Unknown, Verified 02/13/13 11:24) sulfacetamide Allergy (Unknown, Verified 05/10/22 11:31) Reason: Drug allergy sulfamethoxazole [Septra] Allergy (Unknown, Verified 03/29/22 12:57) Reason: Drug allergy trimethoprim [Septra] Allergy (Unknown, Verified 03/29/22 12:57) Reason: Drug allergy nitrofurantoin [From Macrobid] Allergy (Verified 08/29/21 09:16) Sulfa (Sulfonamide Antibiotics) [SULFA] Allergy (Verified 08/29/21 09:16) Microbore Extension Set *MEDIC Allergy (Unknown, Uncoded 02/13/13 11:24) Free Text Allergy: Microbore Extension Set *MEDICAL DEVICES* Vital Signs and I&O's Vital Signs: Vital Signs Temperature 97.3 F Temperature 97.7 F Pulse Rate 68 Pulse Rate 58 Pulse Rate 67 Pulse Rate 62 Pulse Rate 61 Pulse Rate 59 Respiratory Rate 20 Respiratory Rate 18 Respiratory Rate 20 Respiratory Rate 18 Respiratory Rate 20 Respiratory Rate 14 Respiratory Rate 18 Respiratory Rate 16 Blood Pressure 123/62 Blood Pressure 104/56 Blood Pressure 126/64 Blood Pressure 140/65 Blood Pressure 135/60 Blood Pressure 105/53 O2 Sat by Pulse Oximetry 95 O2 Sat by Pulse Oximetry 97 O2 Sat by Pulse Oximetry 100 O2 Sat by Pulse Oximetry 96 O2 Sat by Pulse Oximetry 97 O2 Sat by Pulse Oximetry 98 Intake and Output: Intake & Output 10/04/23 10/05/23 10/06/23 10/07/23 23:59 23:59 23:59 23:59 Intake Total 500 / 500 2530 / 2530 787 / 787 Output Total 400 / 400 950 / 950 450 / 450 Balance 100 / 100 1580 / 1580 337 / 337 Physical Exam Oriented: Normal Eyes: Normal Ear: Normal Nose: Normal Throat: Normal Cardiovascular: Normal Auscultation: Bowel Sounds: Normal Tenderness: Normal Skin: Other (significant swelling both legs right greater than left. Mild erythema right anterior tibial surface with multiple small ulcers each less than 1 cm over the anterior tibial surface ) Musculoskeletal: Leg (B/L chronic edema. Right leg: worsening erythema, weeping blisters with clear fluid, tender ) Psychiatric: Normal Mood Description: Calm Affect: Normal Speech Pattern: Clear and Appropriate Laboratory and Diagnostics 10/07/23 02:35 10/07/23 08:20 Labs: Laboratory WBC 5.2 X10^3/uL (3.6-10.0) 10/07/23 02:35 RBC 3.25 X10^6/uL (3.5-5.4) L 10/07/23 02:35 Hgb 10.3 g/dL (12.0-16.0) L 10/07/23 02:35 Hct 30.9 % (36.0-47.0) L 10/07/23 02:35 MCV 94.8 fL (80.0-100.0) 10/07/23 02:35 MCH 31.7 pg (27.0-34.0) 10/07/23 02:35 MCHC 33.4 g/dL (33.0-35.0) 10/07/23 02:35 RDW 15.6 % (11.6-16.5) 10/07/23 02:35 Plt Count 166 X10^3/uL (150.0-450.0) 10/07/23 02:35 MPV 7.5 fL (7.4-11.0) 10/07/23 02:35 Neut % (Auto) 66.7 % (42.0-75.0) 10/07/23 02:35 Lymph % (Auto) 17.9 % (21.0-51.0) L 10/07/23 02:35 [place] % (Auto) 10.4 % (0.0-13.0) 10/07/23 02:35 Eos % (Auto) 3.6 % (0.9-2.9) H 10/07/23 02:35 Baso % (Auto) 1.4 % (0.2-1.0) H 10/07/23 02:35 Neut # (Auto) 3.5 x10^3/uL (2.2-4.8) 10/07/23 02:35 Lymph # (Auto) 0.9 X10^3/uL (1.3-2.9) L 10/07/23 02:35 [place] # (Auto) 0.5 x10^3/uL (0.3-0.8) 10/07/23 02:35 Eos # (Auto) 0.2 x10^3/uL (0.0-0.2) 10/07/23 02:35 Baso # (Auto) 0.1 X10^3/uL (0.0-0.1) 10/07/23 02:35 Absolute Nucleated RBC 0.0 /100WBC 10/07/23 02:35 PT 16.6 SECONDS (11.8-14.3) 10/06/23 13:30 INR Target Range - 10/06/23 13:30 INR 1.36 (0.8-1.3) H 10/06/23 13:30 APTT 115.6 SECONDS (22.9-36.5) H 10/07/23 08:20 PTT Comment - 10/07/23 08:20 Sodium 137 mmol/L (136-145) 10/07/23 02:35 Corrected Sodium 137 mmol/L (136-145) 10/07/23 02:35 Potassium 4.0 mmol/L (3.5-5.1) 10/07/23 02:35 Chloride 105 mmol/L (98-107) 10/07/23 02:35 Carbon Dioxide 24.1 mmol/L (21-32) 10/07/23 02:35 BUN 14 mg/dL (7-18) 10/07/23 02:35 Creatinine 0.65 mg/dL (0.55-1.02) 10/07/23 08:20 Est GFR (MDRD) Af Amer > 60 (>60) 10/07/23 02:35 Est GFR (MDRD) Non-Af > 60 (>60) 10/07/23 02:35 Glucose 115 mg/dL (65-99) H 10/07/23 02:35 Calcium 7.9 mg/dL (8.5-10.1) L 10/07/23 02:35 Corrected Calcium 9.2 mg/dL (8.5-10.1) 10/07/23 02:35 Total Bilirubin 0.50 mg/dL (0.2-1.0) 10/07/23 02:35 AST 19 Units/L (15-37) 10/07/23 02:35 ALT 19 Units/L (12-78) 10/07/23 02:35 Alkaline Phosphatase 98 Units/L (46-116) 10/07/23 02:35 Total Protein 5.6 g/dL (6.4-8.2) L 10/07/23 02:35 Albumin 2.4 g/dL (3.4-5.0) L 10/07/23 02:35 Globulin 3.2 g/dL (2.5-4.5) 10/07/23 02:35 Albumin/Globulin Ratio 0.8 Ratio (1.1-2.1) L 10/07/23 02:35 Specimen Type Catherized urine 10/06/23 11:00 Urine Color Yellow (YELLOW) 10/06/23 11:00 Urine Appearance Clear (CLEAR) 10/06/23 11:00 Urine pH 5.0 (5.0 - 8.0) 10/06/23 11:00 Ur Specific [place] 1.020 (1.000-1.030) 10/06/23 11:00 Urine Protein 1+ (NEGATIVE) 10/06/23 11:00 Urine Glucose (UA) Negative (NEGATIVE) 10/06/23 11:00 Urine Ketones Negative (NEGATIVE) 10/06/23 11:00 Urine Blood 2+ (NEGATIVE) 10/06/23 11:00 Urine Nitrite Negative (NEGATIVE) 10/06/23 11:00 Urine Bilirubin Negative (NEGATIVE) 10/06/23 11:00 Urine Urobilinogen Normal (NORMAL) 10/06/23 11:00 Ur Leukocyte Esterase 1+ (NEGATIVE) 10/06/23 11:00 Urine RBC 10-20 /HPF (0-3) A 10/06/23 11:00 Urine WBC 5-10 /HPF (0-5) A 10/06/23 11:00 Ur Squamous Epith Cells Many /HPF (NEGATIVE) 10/06/23 11:00 Calcium Oxalate Crystal Moderate /HPF (NEGATIVE) 10/06/23 11:00 Urine Bacteria 1+ /HPF (NEGATIVE) 10/06/23 11:00 Ur Culture Indicated? No/not indicated 10/06/23 11:00 Vancomycin Trough 11.0 ug/mL (15-20) L 10/07/23 08:20 Plan (1) Right leg DVT: Status: Acute Qualifiers: Affected thrombotic vein of extremity: unspecified vein of extremity Chronicity: acute Qualified Code(s): I82.401 - Acute embolism and thrombosis of unspecified deep veins of right lower extremity (2) Cellulitis: Status: Acute Qualifiers: Laterality: left Site of cellulitis: extremity Site of cellulitis of extremity: lower extremity Qualified Code(s): L03.116 - Cellulitis of left lower limb (3) Chronic venous stasis dermatitis of both lower extremities: Status: Acute (4) Chronic venous insufficiency: Status: Acute (5) Pain and swelling of lower extremity: Status: Acute Qualifiers: Laterality: left Qualified Code(s): M79.605 - Pain in left leg; M79.89 - Other specified soft tissue disorders (6) Generalized weakness: Status: Acute (7) Coronary artery disease: Status: None Qualifiers: Associated angina: with unspecified form of angina Coronary Disease- Associated Artery/Lesion type: unspecified vessel or lesion type [place] vs. transplanted heart: [place] heart Qualified Code(s): I25.119 - Atherosclerotic heart disease of [place] coronary artery with unspecified angina pectoris (8) History of pulmonary embolism: Status: None (9) Hypertension: Status: None Qualifiers: Hypertension type: primary hypertension Qualified Code(s): I10 - Essential (primary) hypertension
[2023-10-07] MEDS: COLACE SYRUP 100 MG UDC PO SCH (12:00)
[2023-10-07] MEDS ORDERED: HIBICLENS WASH EXT ONE (19:46)
[2023-10-07] MEDS: LIPITOR TAB 40 MG PO SCH (20:09)
[2023-10-07] MEDS: MELATONIN PO SCH (20:10)
[2023-10-08 04:28] LABS: BASOPHILS % (AUTO) 0.4 % (0.2-1.0); EOSINOPHILS # (AUTO) 0.1 x10^3/uL (0.0-0.2); EOSINOPHILS % (AUTO) 1.4 % (0.9-2.9); HEMOGLOBIN 10.7 g/dL (12.0-16.0); LYMPHOCYTES # (AUTO) 0.8 X10^3/uL (1.3-2.9); LYMPHOCYTES % (AUTO) 10.9 % (21.0-51.0); MEAN CORPUSCULAR HEMOGLOBIN 31.6 pg (27.0-34.0); MEAN CORPUSCULAR HGB CONC 33.3 g/dL (33.0-35.0); MEAN PLATELET VOLUME 7.3 fL (7.4-11.0); MONOCYTES # (AUTO) 0.8 x10^3/uL (0.3-0.8); MONOCYTES % (AUTO) 11.6 % (0.0-13.0); NEUTROPHILS # (AUTO) 5.3 x10^3/uL (2.2-4.8); NEUTROPHILS % (AUTO) 75.7 % (42.0-75.0); PLATELET COUNT 182 X10^3/uL (150.0-450.0); RED BLOOD COUNT 3.37 X10^6/uL (3.5-5.4); RED CELL DISTRIBUTION WIDTH 15.9 % (11.6-16.5)
[2023-10-08 04:36] LABS: ALANINE AMINOTRANSFERASE 17 Units/L (12-78); ALBUMIN 2.3 g/dL (3.4-5.0); ALKALINE PHOSPHATASE 91 Units/L (46-116); ASPARTATE AMINO TRANSFERASE 17 Units/L (15-37); BLOOD UREA NITROGEN 10 mg/dL (7-18); CALCIUM 7.8 mg/dL (8.5-10.1); CHLORIDE 105 mmol/L (98-107); COR CA(FOR HYPOALB) 9.2 mg/dL (8.5-10.1); CREATININE 0.66 mg/dL (0.55-1.02); GLUCOSE 105 mg/dL (65-99); POTASSIUM 3.9 mmol/L (3.5-5.1); SODIUM 136 mmol/L (136-145); TOTAL PROTEIN 5.5 g/dL (6.4-8.2); eGFR NON BLACK RACES > 60 (>60)
[2023-10-08] MEDS: CLEOCIN 300 MG IV PREMIX 300 MG/50 ML BAG IV SCH ×3 (05:03→22:36)
[2023-10-08] MEDS: ZOSYN VIAL 3.375 GRAMS 3.375 G in NS 100 ML IV 100 ML IV SCH ×3 (05:04→23:00)
[2023-10-08] MEDS: HEPARIN SODIUM IN D5W 25,000 UNITS/500 ML BAG IV PRN (05:26)
[2023-10-08] MEDS: SYNTHROID 137 mcg TAB PO SCH (06:08)
[2023-10-08] MEDS ORDERED: LR 1,000 ML IV 1,000 ML IV ONE (07:26)
[2023-10-08] MEDS ORDERED: MARCAINE 0.5% ONE (07:34)
[2023-10-08] MEDS ORDERED: HEPARIN SODIUM IN D5W 75,000 UNITS/1,500 ML BAG ONE (07:35)
[2023-10-08] MEDS ORDERED: HEPARIN SODIUM IN D5W 25,000 UNITS/500 ML BAG ONE ×2 (07:41→08:59)
[2023-10-08] MEDS ORDERED: ACTIVASE CATHFLO ONE (07:42)
[2023-10-08] MEDS ORDERED: NS 500 ML IV 500 ML IV ONE (07:42)
[2023-10-08] MEDS ORDERED: NOZIN NASAL SANITIZER TP ONE (07:48)
--- NOTE | 2023-10-08 08:00 | EKG ---
Test Reason : PACU Blood Pressure : */* mmHG Vent. Rate : 69 BPM Atrial Rate : 69 BPM P-R Int : 128 ms QRS Dur : 124 ms QT Int : 424 ms P-R-T Axes : 14 -2 29 degrees QTc Int : 454 ms Normal sinus rhythm Right bundle branch block Abnormal ECG No previous ECGs available Confirmed by Lester Torrez ([id number]) on 10/09/2023 7:27:25 AM Referred By: Confirmed By: Lester Torrez
[2023-10-08] MEDS ORDERED: AMIDATE INJ 40 MG VIAL ONE (08:03)
[2023-10-08] MEDS ORDERED: PEPCID 20 MG VIAL ONE (08:03)
[2023-10-08] MEDS ORDERED: ZOFRAN INJ 4 MG VIAL ONE (08:03)
[2023-10-08] MEDS ORDERED: OFIRMEV IV 1000 MG VIAL 1,000 MG/100 ML VIAL IV ONE (08:03)
[2023-10-08] MEDS ORDERED: BRIDION ONE (08:03)
[2023-10-08] MEDS ORDERED: ROBINUL ONE (08:03)
[2023-10-08] MEDS ORDERED: ZEMURON 100 MG VIAL ONE (08:03)
[2023-10-08] MEDS ORDERED: VERSED ONE (08:04)
[2023-10-08] MEDS ORDERED: FENTANYL VIAL INJ 100 mcg ONE (08:04)
[2023-10-08] MEDS ORDERED: DECADRON INJ ONE (08:06)
[2023-10-08] MEDS ORDERED: XYLOCAINE 2 % (PLAIN) ONE (08:06)
[2023-10-08] MEDS ORDERED: ULTANE GAS IN ONE (08:07)
[2023-10-08] MEDS ORDERED: KETAMINE HCL ONE (08:07)
--- NOTE | 2023-10-08 08:11 | RAD ---
EXAM:One-view chestHISTORY:Preop vascular surgeryCOMPARISON:07/13/2021FINDINGS:Pat ient is rotated to the right. Heart is enlarged. No congestive heart failure is noted. Aorta is mildly ectatic. [place] are normal. Lungs are free of acute infiltrates. No pleural effusions are identified. There is minimal subsegmental atelectasis in the right lung base. Bony thorax is unremarkable.IMPRESSION:Cardiomegaly without congestive heart failureNo acute infiltratesMinimal subsegmental atelectasis right lung baseTHIS IS AN ELECTRONICALLY VERIFIED FINAL REPORT10/08/2023 8:05 AM - Electronically signed by Juno Moser MD
[2023-10-08] MEDS ORDERED: LACRI-LUBE S.O.P. ONE (08:26)
[2023-10-08] MEDS ORDERED: VISIPAQUE 100 ML ONE (08:34)
[2023-10-08] MEDS ORDERED: HEPARIN SODIUM INJ 5000 UNITS ONE (08:43)
[2023-10-08] MEDS ORDERED: ATROPINE SULFATE ONE (09:11)
[2023-10-08] MEDS: ACTIVASE CATHFLO 12 MG in NS 250 ML IV 228 ML IV SCH ×2 (09:25→20:25)
[2023-10-08] MEDS ORDERED: BENADRYL INJ 50 MG VIAL IVP PRN (09:45)
[2023-10-08] MEDS ORDERED: DILAUDID INJ IVP PRN (09:45)
[2023-10-08] MEDS ORDERED: ZOFRAN INJ 4 MG VIAL IVP PRN (09:45)
[2023-10-08] MEDS: COLACE SYRUP 100 MG UDC PO SCH (10:33)
[2023-10-08] MEDS: LOPRESSOR TAB 25 MG PO SCH ×2 (10:34→22:25)
[2023-10-08] MEDS: PLAVIX PO SCH (10:34)
[2023-10-08] MEDS: VANCOMYCIN IV *PREMIX 750 mg/150 ML BAG 750 MG/150 ML PIGGYBACK IV SCH ×2 (10:45→20:48)
--- NOTE | 2023-10-08 11:10 | OR.IMMED ---
IMMEDIATE POST-OP NOTE Immediate Post-Op Note Pre-Op Diagnosis: Deep Venous Thrombosis of the right femoral vein with reconsti tution of the popliteal vein Post-Op Diagnosis: complete venous occlusion /thrombosis of the right iliac venous stent and the common right femoral vein. 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 This is different from what was noted on th ultrasound of the right leg Estimated Blood Loss: < 50 cc Complications: none Progress Notes: Will perform intravenous thrombolysis of the right femoral vein and right iliac vein with stent in place overnight. Discontinued tomorrow and transition to PO anticoagulation.
--- NOTE | 2023-10-08 11:30 | NOTE.SOAP ---
Soap Note Note for Day of Date of Exam: 10/07/23 Subjective Data Subjective Data: Patient with diagnosis of right common femoral vein and femoral vein Venous Thrombosis as identified by ultrasound. 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 Remains on Heparin drip. Still with significant swelling of the right leg and some redness. I believe most of the redness is due to hyperemia from the Venous Thrombosis and not infection. She is continued on IV antibiotics. Objective Data Temperature: 98.9 F Pulse Rate: 80 Respiratory Rate: 19 Blood Pressure: 136/66 O2 Sat by Pulse Oximetry: 96 Objective Data: 4 + pitting edema right leg with redness and smalll ulcers. Assessment Assessment: right lef DVT Plan Plan: Continuie heparin drip and plan placement EKOS catheter right leg tomorrow for intravenous thrombosis.
[2023-10-08] MEDS ORDERED: HEPARIN SODIUM IN D5W 25,000 UNITS/500 ML BAG INTRACATH PRN (12:11)
[2023-10-08] MEDS ORDERED: ACTIVASE CATHFLO 12 MG in NS 250 ML IV 228 ML INTRACATH ONE ×4 (12:11)
--- NOTE | 2023-10-08 12:27 | DR.OPNOTE ---
OP NOTE Pre-Op Diagnosis: Deep Venous Thrombosis of the entire right femoral vein with complete occlu Post-Op Diagnosis: DVT of the right iliac vein stent and right common femoral vein Procedure Date Date Of Procedure: 10/08/23 Procedure: PROCEDURE : PLACE RIGHT POPLITEAL VEIN EKOS THROMBOLYTIC CATHETER THROUGH THROMBOSIS OF RIGHT COMMON FEMORAL VEIN AND THROMBOSIS RIGHT ILIAC VEIN STENT FOR DIRECTED THROMBOLYSIS OF THESE AREAS OF RIGHT LEG VENOUS RETURN. NARRATIVE : Patient was taken to the operative suite and placed in the supine position. General endotracheal anesthesia induced and the patient turned over and placed in the prone position. Entire right leg prepped and draped in sterile fashion. Ultrasound used to identify the right popliteal vein and the skin overlying it infiltrated with 0.5% Marcaine . Ultrasound use to guide puncture of the right popliteal vein and a 0.012 inch guidewire placed. Incision made over the guide wire with a knife blade and a micro sheath placed into the politeal vein Venogram performed showing the superficial femoral vein to be patient. [place] catheter placed over the wire and taken up to the common femoral vein and repeat venogram showed complete occlusion of the common femoral vein and the right iliac vein stent. There was flow in the vena cava. There was a vena caval filter in the distal inferior vena cava.The micro sheath exchanged for a 10 Fr vascular sheath Intravascular ultrasound carried out confirming the extent of the clot from the common femoral vein through the right iliac vein and stent. EKOS catheter was placed over the wire, wire removed and the inner working core of the catheter placed. This was place on vibration. Patient bolused with 3 mg of IV TPA and began a drip throught the drug port of one milligram per hour, 30 ccs of saline per hour through the coolant port and heparin 500 units per hour through the side port of the introducer sheath. Patient turned over to the supine position, extubated and taken to the recovery room. From there she will be taken to the ICU for overnight thrombolysis. Type of Anesthesia: Local (0.5% Marcain) and General Anesthetic w/ETT Findings: Thrombosis of the right iliac vein stent with common femoral thrombosis and reconstitution of the right Superficial femoral vein Type of Fluids Used:: Lactated Ringers EBL: < 50 cc Complications:: none Needle/Sponge Count:: correct Disposition/Condition: Pt. tolerated procedure without difficulty. Extubated in the OR and taken to PACU in stable condition.
[2023-10-08] MEDS ORDERED: NS 500 ML IV 500 ML IV SCH (13:00)
[2023-10-08 13:06] LABS: BASOPHILS % (AUTO) 0.2 % (0.2-1.0); EOSINOPHILS % (AUTO) 0.3 % (0.9-2.9); HEMATOCRIT 31.1 % (36.0-47.0); HEMOGLOBIN 10.5 g/dL (12.0-16.0); LYMPHOCYTES # (AUTO) 0.5 X10^3/uL (1.3-2.9); LYMPHOCYTES % (AUTO) 5.8 % (21.0-51.0); MEAN CORPUSCULAR HEMOGLOBIN 32.1 pg (27.0-34.0); MEAN CORPUSCULAR HGB CONC 33.7 g/dL (33.0-35.0); MEAN CORPUSCULAR VOLUME 95.3 fL (80.0-100.0); MEAN PLATELET VOLUME 7.2 fL (7.4-11.0); MONOCYTES # (AUTO) 0.3 x10^3/uL (0.3-0.8); NEUTROPHILS # (AUTO) 7.2 x10^3/uL (2.2-4.8); NEUTROPHILS % (AUTO) 89.7 % (42.0-75.0); PLATELET COUNT 164 X10^3/uL (150.0-450.0); RED BLOOD COUNT 3.26 X10^6/uL (3.5-5.4); RED CELL DISTRIBUTION WIDTH 15.9 % (11.6-16.5)
[2023-10-08] MEDS: NS 500 ML IV 500 ML IV SCH (13:16)
[2023-10-08 20:14] LABS: BASOPHILS % (AUTO) 0.2 % (0.2-1.0); HEMATOCRIT 30.2 % (36.0-47.0); HEMOGLOBIN 10.3 g/dL (12.0-16.0); LYMPHOCYTES # (AUTO) 0.4 X10^3/uL (1.3-2.9); LYMPHOCYTES % (AUTO) 7.9 % (21.0-51.0); MEAN CORPUSCULAR HEMOGLOBIN 32.8 pg (27.0-34.0); MEAN CORPUSCULAR HGB CONC 34.2 g/dL (33.0-35.0); MEAN CORPUSCULAR VOLUME 95.9 fL (80.0-100.0); MEAN PLATELET VOLUME 7.4 fL (7.4-11.0); MONOCYTES # (AUTO) 0.5 x10^3/uL (0.3-0.8); MONOCYTES % (AUTO) 9.4 % (0.0-13.0); NEUTROPHILS # (AUTO) 4.7 x10^3/uL (2.2-4.8); NEUTROPHILS % (AUTO) 82.5 % (42.0-75.0); PLATELET COUNT 158 X10^3/uL (150.0-450.0); RED BLOOD COUNT 3.15 X10^6/uL (3.5-5.4); RED CELL DISTRIBUTION WIDTH 15.8 % (11.6-16.5); WHITE BLOOD COUNT 5.7 X10^3/uL (3.6-10.0)
[2023-10-08 20:36] LABS: CREATININE 1.06 mg/dL (0.55-1.02)
[2023-10-08] MEDS: LIPITOR TAB 40 MG PO SCH (20:45)
[2023-10-08] MEDS: MELATONIN PO SCH (20:45)
[2023-10-09] MEDS: PERCOCET TAB 5/325 MG PO PRN ×2 (01:41→17:52)
[2023-10-09] MEDS: NS 500 ML IV 500 ML IV SCH (02:02)
[2023-10-09 02:21] LABS: BASOPHILS % (AUTO) 0.2 % (0.2-1.0); HEMATOCRIT 29.2 % (36.0-47.0); HEMOGLOBIN 9.7 g/dL (12.0-16.0); LYMPHOCYTES # (AUTO) 0.6 X10^3/uL (1.3-2.9); LYMPHOCYTES % (AUTO) 9.1 % (21.0-51.0); MEAN CORPUSCULAR HEMOGLOBIN 31.9 pg (27.0-34.0); MEAN CORPUSCULAR HGB CONC 33.3 g/dL (33.0-35.0); MEAN CORPUSCULAR VOLUME 95.8 fL (80.0-100.0); MEAN PLATELET VOLUME 7.6 fL (7.4-11.0); MONOCYTES # (AUTO) 0.5 x10^3/uL (0.3-0.8); MONOCYTES % (AUTO) 7.4 % (0.0-13.0); NEUTROPHILS # (AUTO) 5.6 x10^3/uL (2.2-4.8); NEUTROPHILS % (AUTO) 83.3 % (42.0-75.0); PLATELET COUNT 151 X10^3/uL (150.0-450.0); RED BLOOD COUNT 3.05 X10^6/uL (3.5-5.4); RED CELL DISTRIBUTION WIDTH 15.5 % (11.6-16.5); WHITE BLOOD COUNT 6.7 X10^3/uL (3.6-10.0)
[2023-10-09] MEDS: ZOSYN VIAL 3.375 GRAMS 3.375 G in NS 100 ML IV 100 ML IV SCH ×3 (05:14→22:43)
[2023-10-09] MEDS: CLEOCIN 300 MG IV PREMIX 300 MG/50 ML BAG IV SCH ×3 (05:14→22:05)
[2023-10-09] MEDS: SYNTHROID 137 mcg TAB PO SCH (06:01)
--- NOTE | 2023-10-09 06:41 | PCM.PROG ---
Progress Note Progress Note for Day of Date of Exam: 10/08/23 Subjective Subjective: Patient at bedside. No acute events overnight. She was started on heparin drip as per Dr Mccracken. He plans to do thrombolysis this morning for right leg DVT. She is currently receiving IV antibiotics and pain medicine. Erythema of the leg has shown some improvement. Labs/imaging reviewed US: RLE occlusive DVT Plan: continue current treatment with IV antibiotics. Follow surgery rec ommendations. Continue IV heparin. Plan for thrombolysis this morning. Monitor AM labs/imaging. Past Medical Family Social History Allergies: Allergies cefdinir Allergy (Unknown, Verified 05/10/22 11:31) Reason: Drug allergy levofloxacin [Levaquin] Allergy (Unknown, Verified 02/13/13 11:24) sulfacetamide Allergy (Unknown, Verified 05/10/22 11:31) Reason: Drug allergy sulfamethoxazole [Septra] Allergy (Unknown, Verified 03/29/22 12:57) Reason: Drug allergy trimethoprim [Septra] Allergy (Unknown, Verified 03/29/22 12:57) Reason: Drug allergy nitrofurantoin [From Macrobid] Allergy (Verified 08/29/21 09:16) Sulfa (Sulfonamide Antibiotics) [SULFA] Allergy (Verified 08/29/21 09:16) Microbore Extension Set *MEDIC Allergy (Unknown, Uncoded 02/13/13 11:24) Free Text Allergy: Microbore Extension Set *MEDICAL DEVICES* Review of Systems ROS changes noted: see HPI Vital Signs and I&O's Vital Signs: Vital Signs Temperature 97.8 F Temperature 97.8 F Pulse Rate 63 Pulse Rate 49 Pulse Rate 59 Pulse Rate 60 Pulse Rate 56 Pulse Rate 52 Pulse Rate 48 Pulse Rate 49 Respiratory Rate 14 Respiratory Rate 15 Respiratory Rate 10 Respiratory Rate 11 Respiratory Rate 11 Respiratory Rate 15 Respiratory Rate 22 Respiratory Rate 25 Respiratory Rate 13 Respiratory Rate 20 Blood Pressure 93/50 Blood Pressure 93/53 Blood Pressure 100/52 Blood Pressure 101/51 Blood Pressure 106/54 Blood Pressure 116/56 Blood Pressure 120/53 Blood Pressure 142/62 O2 Sat by Pulse Oximetry 96 O2 Sat by Pulse Oximetry 95 O2 Sat by Pulse Oximetry 96 O2 Sat by Pulse Oximetry 95 O2 Sat by Pulse Oximetry 96 O2 Sat by Pulse Oximetry 97 O2 Sat by Pulse Oximetry 96 O2 Sat by Pulse Oximetry 97 Intake and Output: Intake & Output 10/06/23 10/07/23 10/08/23 10/09/23 23:59 23:59 23:59 23:59 Intake Total 2530 / 2530 1860 / 1860 3694 / 3741 743 / 743 Output Total 950 / 950 1850 / 1850 3225 / 3315 400 / 400 Balance 1580 / 1580 469 / 426 343 / 343 Physical Exam Oriented: Normal Eyes: Normal Ear: Normal Nose: Normal Throat: Normal Cardiovascular: Normal : Other (complains of bilateral flank pain, no obvious tenderness ) Auscultation: Bowel Sounds: Normal Tenderness: Normal Skin: Other (significant swelling both legs right greater than left. Mild erythema right anterior tibial surface with multiple small ulcers each less than 1 cm over the anterior tibial surface ) Musculoskeletal: Leg (B/L chronic edema. Right leg: worsening erythema, weeping blisters with clear fluid, tender ) Psychiatric: Normal Mood Description: Calm and Appropriate Affect: Normal Speech Pattern: Clear and Appropriate Laboratory and Diagnostics 10/09/23 02:00 10/08/23 20:05 Labs: Laboratory WBC 6.7 X10^3/uL (3.6-10.0) 10/09/23 02:00 RBC 3.05 X10^6/uL (3.5-5.4) L 10/09/23 02:00 Hgb 9.7 g/dL (12.0-16.0) L 10/09/23 02:00 Hct 29.2 % (36.0-47.0) L 10/09/23 02:00 MCV 95.8 fL (80.0-100.0) 10/09/23 02:00 MCH 31.9 pg (27.0-34.0) 10/09/23 02:00 MCHC 33.3 g/dL (33.0-35.0) 10/09/23 02:00 RDW 15.5 % (11.6-16.5) 10/09/23 02:00 Plt Count 151 X10^3/uL (150.0-450.0) 10/09/23 02:00 MPV 7.6 fL (7.4-11.0) 10/09/23 02:00 Neut % (Auto) 83.3 % (42.0-75.0) H 10/09/23 02:00 Lymph % (Auto) 9.1 % (21.0-51.0) L 10/09/23 02:00 [place] % (Auto) 7.4 % (0.0-13.0) 10/09/23 02:00 Eos % (Auto) 0.0 % (0.9-2.9) L 10/09/23 02:00 Baso % (Auto) 0.2 % (0.2-1.0) 10/09/23 02:00 Neut # (Auto) 5.6 x10^3/uL (2.2-4.8) H 10/09/23 02:00 Lymph # (Auto) 0.6 X10^3/uL (1.3-2.9) L 10/09/23 02:00 [place] # (Auto) 0.5 x10^3/uL (0.3-0.8) 10/09/23 02:00 Eos # (Auto) 0.0 x10^3/uL (0.0-0.2) 10/09/23 02:00 Baso # (Auto) 0.0 X10^3/uL (0.0-0.1) 10/09/23 02:00 Absolute Nucleated RBC 0.1 /100WBC 10/09/23 02:00 PT 16.6 SECONDS (11.8-14.3) 10/06/23 13:30 INR Target Range - 10/06/23 13:30 INR 1.36 (0.8-1.3) H 10/06/23 13:30 APTT 49.7 SECONDS (22.9-36.5) H 10/09/23 02:00 PTT Comment - 10/09/23 02:00 Fibrinogen 309 mg/dL (239-489) 10/09/23 02:00 Sodium 136 mmol/L (136-145) 10/08/23 04:05 Corrected Sodium TNP 10/08/23 04:05 Potassium 3.9 mmol/L (3.5-5.1) 10/08/23 04:05 Chloride 105 mmol/L (98-107) 10/08/23 04:05 Carbon Dioxide 25.0 mmol/L (21-32) 10/08/23 04:05 BUN 10 mg/dL (7-18) 10/08/23 04:05 Creatinine 1.06 mg/dL (0.55-1.02) H 10/08/23 20:05 Est GFR (MDRD) Af Amer > 60 (>60) 10/08/23 04:05 Est GFR (MDRD) Non-Af > 60 (>60) 10/08/23 04:05 Glucose 105 mg/dL (65-99) H 10/08/23 04:05 Calcium 7.8 mg/dL (8.5-10.1) L 10/08/23 04:05 Corrected Calcium 9.2 mg/dL (8.5-10.1) 10/08/23 04:05 Total Bilirubin 0.80 mg/dL (0.2-1.0) 10/08/23 04:05 AST 17 Units/L (15-37) 10/08/23 04:05 ALT 17 Units/L (12-78) 10/08/23 04:05 Alkaline Phosphatase 91 Units/L (46-116) 10/08/23 04:05 Total Protein 5.5 g/dL (6.4-8.2) L 10/08/23 04:05 Albumin 2.3 g/dL (3.4-5.0) L 10/08/23 04:05 Globulin 3.2 g/dL (2.5-4.5) 10/08/23 04:05 Albumin/Globulin Ratio 0.7 Ratio (1.1-2.1) L 10/08/23 04:05 Specimen Type Catherized urine 10/06/23 11:00 Urine Color Yellow (YELLOW) 10/06/23 11:00 Urine Appearance Clear (CLEAR) 10/06/23 11:00 Urine pH 5.0 (5.0 - 8.0) 10/06/23 11:00 Ur Specific [place] 1.020 (1.000-1.030) 10/06/23 11:00 Urine Protein 1+ (NEGATIVE) 10/06/23 11:00 Urine Glucose (UA) Negative (NEGATIVE) 10/06/23 11:00 Urine Ketones Negative (NEGATIVE) 10/06/23 11:00 Urine Blood 2+ (NEGATIVE) 10/06/23 11:00 Urine Nitrite Negative (NEGATIVE) 10/06/23 11:00 Urine Bilirubin Negative (NEGATIVE) 10/06/23 11:00 Urine Urobilinogen Normal (NORMAL) 10/06/23 11:00 Ur Leukocyte Esterase 1+ (NEGATIVE) 10/06/23 11:00 Urine RBC 10-20 /HPF (0-3) A 10/06/23 11:00 Urine WBC 5-10 /HPF (0-5) A 10/06/23 11:00 Ur Squamous Epith Cells Many /HPF (NEGATIVE) 10/06/23 11:00 Calcium Oxalate Crystal Moderate /HPF (NEGATIVE) 10/06/23 11:00 Urine Bacteria 1+ /HPF (NEGATIVE) 10/06/23 11:00 Ur Culture Indicated? No/not indicated 10/06/23 11:00 Vancomycin Trough 17.0 ug/mL (15-20) 10/08/23 20:05 Plan (1) Right leg DVT: Status: Acute Qualifiers: Affected thrombotic vein of extremity: unspecified vein of extremity Chronicity: acute Qualified Code(s): I82.401 - Acute embolism and thrombosis of unspecified deep veins of right lower extremity (2) Cellulitis: Status: Acute Qualifiers: Site of cellulitis: extremity Site of cellulitis of extremity: lower extremity Laterality: left Qualified Code(s): L03.116 - Cellulitis of left lower limb (3) Chronic venous stasis dermatitis of both lower extremities: Status: Acute (4) Chronic venous insufficiency: Status: Acute (5) Pain and swelling of lower extremity: Status: Acute Qualifiers: Laterality: left Qualified Code(s): M79.605 - Pain in left leg; M79.89 - Other specified soft tissue disorders (6) Generalized weakness: Status: Acute (7) Coronary artery disease: Status: None Qualifiers: Coronary Disease-Associated Artery/Lesion type: unspecified vessel or lesion type [place] vs. transplanted heart: [place] heart Associated angina: with unspecified form of angina Qualified Code(s): I25.119 - Atherosclerotic heart disease of [place] coronary artery with unspecified angina pectoris (8) History of pulmonary embolism: Status: None (9) Hypertension: Status: None Qualifiers: Hypertension type: primary hypertension Qualified Code(s): I10 - Essential (primary) hypertension
[2023-10-09 08:39] LABS: BASOPHILS % (AUTO) 0.3 % (0.2-1.0); EOSINOPHILS % (AUTO) 0.4 % (0.9-2.9); HEMOGLOBIN 9.4 g/dL (12.0-16.0); LYMPHOCYTES # (AUTO) 0.7 X10^3/uL (1.3-2.9); LYMPHOCYTES % (AUTO) 10.9 % (21.0-51.0); MEAN CORPUSCULAR HEMOGLOBIN 31.8 pg (27.0-34.0); MEAN CORPUSCULAR HGB CONC 33.5 g/dL (33.0-35.0); MEAN CORPUSCULAR VOLUME 94.8 fL (80.0-100.0); MEAN PLATELET VOLUME 7.5 fL (7.4-11.0); MONOCYTES # (AUTO) 0.7 x10^3/uL (0.3-0.8); MONOCYTES % (AUTO) 10.5 % (0.0-13.0); NEUTROPHILS # (AUTO) 5.3 x10^3/uL (2.2-4.8); NEUTROPHILS % (AUTO) 77.9 % (42.0-75.0); PLATELET COUNT 159 X10^3/uL (150.0-450.0); RED BLOOD COUNT 2.95 X10^6/uL (3.5-5.4); RED CELL DISTRIBUTION WIDTH 15.8 % (11.6-16.5); WHITE BLOOD COUNT 6.9 X10^3/uL (3.6-10.0)
[2023-10-09] MEDS: XARELTO PO SCH ×2 (09:45→20:53)
[2023-10-09] MEDS: PLAVIX PO SCH (09:45)
[2023-10-09] MEDS: COLACE SYRUP 100 MG UDC PO SCH (09:45)
[2023-10-09] MEDS: NS 500 ML IV 500 ML IV PRN (09:45)
[2023-10-09] MEDS: VANCOMYCIN IV *PREMIX 750 mg/150 ML BAG 750 MG/150 ML PIGGYBACK IV SCH ×2 (09:45→20:53)
[2023-10-09] MEDS: LOPRESSOR TAB 25 MG PO SCH ×2 (09:59→20:53)
[2023-10-09] MEDS: CHLORASEPTIC SPRAY MT PRN ×2 (10:30→16:30)
[2023-10-09] MEDS: TYLENOL 325 MG TAB PO PRN (14:07)
[2023-10-09] MEDS: MELATONIN PO SCH (20:53)
[2023-10-09] MEDS: LIPITOR TAB 40 MG PO SCH (20:54)
[2023-10-10 05:22] LABS: BASOPHILS % (AUTO) 0.2 % (0.2-1.0); EOSINOPHILS # (AUTO) 0.2 x10^3/uL (0.0-0.2); EOSINOPHILS % (AUTO) 2.3 % (0.9-2.9); HEMATOCRIT 32.1 % (36.0-47.0); HEMOGLOBIN 10.6 g/dL (12.0-16.0); LYMPHOCYTES # (AUTO) 0.7 X10^3/uL (1.3-2.9); LYMPHOCYTES % (AUTO) 10.3 % (21.0-51.0); MEAN CORPUSCULAR HEMOGLOBIN 31.4 pg (27.0-34.0); MEAN CORPUSCULAR HGB CONC 32.9 g/dL (33.0-35.0); MEAN CORPUSCULAR VOLUME 95.5 fL (80.0-100.0); MEAN PLATELET VOLUME 7.7 fL (7.4-11.0); MONOCYTES # (AUTO) 0.6 x10^3/uL (0.3-0.8); NEUTROPHILS # (AUTO) 5.6 x10^3/uL (2.2-4.8); NEUTROPHILS % (AUTO) 78.2 % (42.0-75.0); PLATELET COUNT 207 X10^3/uL (150.0-450.0); RED BLOOD COUNT 3.36 X10^6/uL (3.5-5.4); RED CELL DISTRIBUTION WIDTH 16.1 % (11.6-16.5); WHITE BLOOD COUNT 7.2 X10^3/uL (3.6-10.0)
[2023-10-10 05:41] LABS: ALANINE AMINOTRANSFERASE 19 Units/L (12-78); ALKALINE PHOSPHATASE 78 Units/L (46-116); ASPARTATE AMINO TRANSFERASE 34 Units/L (15-37); BLOOD UREA NITROGEN 16 mg/dL (7-18); CALCIUM 8.2 mg/dL (8.5-10.1); CARBON DIOXIDE 25.6 mmol/L (21-32); CHLORIDE 107 mmol/L (98-107); COR CA(FOR HYPOALB) 9.8 mg/dL (8.5-10.1); CREATININE 1.18 mg/dL (0.55-1.02); GLUCOSE 83 mg/dL (65-99); POTASSIUM 3.3 mmol/L (3.5-5.1); SODIUM 141 mmol/L (136-145); TOTAL PROTEIN 5.5 g/dL (6.4-8.2); eGFR NON BLACK RACES 46 (>60)
[2023-10-10] MEDS: CLEOCIN 300 MG IV PREMIX 300 MG/50 ML BAG IV SCH ×3 (05:54→21:08)
[2023-10-10] MEDS: ZOSYN VIAL 3.375 GRAMS 3.375 G in NS 100 ML IV 100 ML IV SCH ×3 (06:23→21:48)
[2023-10-10] MEDS: SYNTHROID 137 mcg TAB PO SCH (06:24)
[2023-10-10] MEDS ORDERED: PHARMACY COMMENT IV ONE (08:30)
[2023-10-10 08:50] LABS: CREATININE 1.3 mg/dL (0.55-1.02)
[2023-10-10] MEDS ORDERED: K-DUR TAB 20 MEQ PO ONE (09:00)
[2023-10-10] MEDS ORDERED: CONSULT PHARMACY - POTASSIUM & MAGNESIUM XX SCH (09:00)
[2023-10-10] MEDS: PLAVIX PO SCH (09:41)
[2023-10-10] MEDS: XARELTO PO SCH ×2 (09:41→21:09)
[2023-10-10] MEDS: COLACE SYRUP 100 MG UDC PO SCH (09:41)
[2023-10-10] MEDS: LOPRESSOR TAB 25 MG PO SCH ×2 (09:42→21:10)
[2023-10-10] MEDS: PERCOCET TAB 5/325 MG PO PRN ×2 (09:42→21:09)
[2023-10-10] MEDS: NS 500 ML IV 500 ML IV SCH (19:39)
[2023-10-10] MEDS: LIPITOR TAB 40 MG PO SCH (21:09)
[2023-10-10] MEDS: MELATONIN PO SCH (21:09)
[2023-10-11] MEDS: CLEOCIN 300 MG IV PREMIX 300 MG/50 ML BAG IV SCH ×3 (05:08→21:26)
[2023-10-11] MEDS: ZOSYN VIAL 3.375 GRAMS 3.375 G in NS 100 ML IV 100 ML IV SCH ×3 (05:35→21:25)
[2023-10-11] MEDS: SYNTHROID 137 mcg TAB PO SCH (05:36)
[2023-10-11 05:40] LABS: BASOPHILS % (AUTO) 0.7 % (0.2-1.0); EOSINOPHILS # (AUTO) 0.2 x10^3/uL (0.0-0.2); EOSINOPHILS % (AUTO) 3.2 % (0.9-2.9); HEMATOCRIT 28.9 % (36.0-47.0); HEMOGLOBIN 9.8 g/dL (12.0-16.0); LYMPHOCYTES # (AUTO) 0.8 X10^3/uL (1.3-2.9); LYMPHOCYTES % (AUTO) 12.3 % (21.0-51.0); MEAN CORPUSCULAR HEMOGLOBIN 32.1 pg (27.0-34.0); MEAN CORPUSCULAR HGB CONC 33.9 g/dL (33.0-35.0); MEAN CORPUSCULAR VOLUME 94.7 fL (80.0-100.0); MEAN PLATELET VOLUME 7.7 fL (7.4-11.0); MONOCYTES # (AUTO) 0.6 x10^3/uL (0.3-0.8); MONOCYTES % (AUTO) 9.5 % (0.0-13.0); NEUTROPHILS # (AUTO) 4.5 x10^3/uL (2.2-4.8); NEUTROPHILS % (AUTO) 74.3 % (42.0-75.0); PLATELET COUNT 221 X10^3/uL (150.0-450.0); RED BLOOD COUNT 3.05 X10^6/uL (3.5-5.4); RED CELL DISTRIBUTION WIDTH 16.1 % (11.6-16.5); WHITE BLOOD COUNT 6.1 X10^3/uL (3.6-10.0)
[2023-10-11 05:59] LABS: ALANINE AMINOTRANSFERASE 23 Units/L (12-78); ALBUMIN 1.8 g/dL (3.4-5.0); ALKALINE PHOSPHATASE 81 Units/L (46-116); ASPARTATE AMINO TRANSFERASE 30 Units/L (15-37); BLOOD UREA NITROGEN 13 mg/dL (7-18); CARBON DIOXIDE 24.9 mmol/L (21-32); CHLORIDE 109 mmol/L (98-107); COR CA(FOR HYPOALB) 9.8 mg/dL (8.5-10.1); CREATININE 1.05 mg/dL (0.55-1.02); GLUCOSE 90 mg/dL (65-99); POTASSIUM 3.4 mmol/L (3.5-5.1); SODIUM 140 mmol/L (136-145); TOTAL PROTEIN 5.1 g/dL (6.4-8.2); eGFR NON BLACK RACES 53 (>60)
--- NOTE | 2023-10-11 06:16 | PCM.PROG ---
Progress Note Progress Note for Day of Date of Exam: 10/09/23 Subjective Subjective: Patient at bedside. No acute events overnight. 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 She is currently receiving IV antibiotics and pain medicine. Erythema of the leg has shown some improvement. Labs/imaging reviewed US: RLE occlusive DVT Plan: continue current treatment with IV antibiotics. Follow surgery recommendations. Continue to monitor AM labs/imaging. Past Medical Family Social History Allergies: Allergies cefdinir Allergy (Unknown, Verified 05/10/22 11:31) Reason: Drug allergy levofloxacin [Levaquin] Allergy (Unknown, Verified 02/13/13 11:24) sulfacetamide Allergy (Unknown, Verified 05/10/22 11:31) Reason: Drug allergy sulfamethoxazole [Septra] Allergy (Unknown, Verified 03/29/22 12:57) Reason: Drug allergy trimethoprim [Septra] Allergy (Unknown, Verified 03/29/22 12:57) Reason: Drug allergy nitrofurantoin [From Macrobid] Allergy (Verified 08/29/21 09:16) Sulfa (Sulfonamide Antibiotics) [SULFA] Allergy (Verified 08/29/21 09:16) Microbore Extension Set *MEDIC Allergy (Unknown, Uncoded 02/13/13 11:24) Free Text Allergy: Microbore Extension Set *MEDICAL DEVICES* Review of Systems ROS changes noted: see HPI Vital Signs and I&O's Vital Signs: Vital Signs Temperature 98.5 F Temperature 98.7 F Pulse Rate 58 Pulse Rate 57 Pulse Rate 59 Pulse Rate 60 Pulse Rate 62 Pulse Rate 63 Pulse Rate 63 Respiratory Rate 15 Respiratory Rate 15 Respiratory Rate 17 Respiratory Rate 15 Respiratory Rate 14 Respiratory Rate 14 Respiratory Rate 16 Respiratory Rate 18 Blood Pressure 136/62 Blood Pressure 135/60 Blood Pressure 115/60 Blood Pressure 119/57 Blood Pressure 123/64 Blood Pressure 124/61 Blood Pressure 120/60 O2 Sat by Pulse Oximetry 94 O2 Sat by Pulse Oximetry 97 O2 Sat by Pulse Oximetry 93 O2 Sat by Pulse Oximetry 92 O2 Sat by Pulse Oximetry 93 O2 Sat by Pulse Oximetry 93 O2 Sat by Pulse Oximetry 90 Intake and Output: Intake & Output 10/08/23 10/09/23 10/10/23 10/11/23 23:59 23:59 23:59 23:59 Intake Total 3694 / 3741 2337 / 2359 2831 / 2831 350 / 350 Output Total 3225 / 3315 1716 / 1866 4270 / 4345 825 / 825 Balance 469 / 426 621 / 493 -1439 / -1514 -475 / -475 Physical Exam Oriented: Normal Eyes: Normal Ear: Normal Nose: Normal Throat: Normal Cardiovascular: Normal : Other (complains of bilateral flank pain, no obvious tenderness ) Auscultation: Bowel Sounds: Normal Tenderness: Normal Skin: Other (significant swelling both legs right greater than left. Mild erythema right anterior tibial surface with multiple small ulcers each less than 1 cm over the anterior tibial surface ) Musculoskeletal: Leg (B/L chronic edema. Right leg: worsening erythema, weeping blisters with clear fluid, tender ) Psychiatric: Normal Mood Description: Calm and Appropriate Affect: Normal Speech Pattern: Clear and Appropriate Laboratory and Diagnostics 10/11/23 04:42 10/11/23 04:42 Labs: Laboratory WBC 6.1 X10^3/uL (3.6-10.0) 10/11/23 04:42 RBC 3.05 X10^6/uL (3.5-5.4) L 10/11/23 04:42 Hgb 9.8 g/dL (12.0-16.0) L 10/11/23 04:42 Hct 28.9 % (36.0-47.0) L 10/11/23 04:42 MCV 94.7 fL (80.0-100.0) 10/11/23 04:42 MCH 32.1 pg (27.0-34.0) 10/11/23 04:42 MCHC 33.9 g/dL (33.0-35.0) 10/11/23 04:42 RDW 16.1 % (11.6-16.5) 10/11/23 04:42 Plt Count 221 X10^3/uL (150.0-450.0) 10/11/23 04:42 MPV 7.7 fL (7.4-11.0) 10/11/23 04:42 Neut % (Auto) 74.3 % (42.0-75.0) 10/11/23 04:42 Lymph % (Auto) 12.3 % (21.0-51.0) L 10/11/23 04:42 [place] % (Auto) 9.5 % (0.0-13.0) 10/11/23 04:42 Eos % (Auto) 3.2 % (0.9-2.9) H 10/11/23 04:42 Baso % (Auto) 0.7 % (0.2-1.0) 10/11/23 04:42 Neut # (Auto) 4.5 x10^3/uL (2.2-4.8) 10/11/23 04:42 Lymph # (Auto) 0.8 X10^3/uL (1.3-2.9) L 10/11/23 04:42 [place] # (Auto) 0.6 x10^3/uL (0.3-0.8) 10/11/23 04:42 Eos # (Auto) 0.2 x10^3/uL (0.0-0.2) 10/11/23 04:42 Baso # (Auto) 0.0 X10^3/uL (0.0-0.1) 10/11/23 04:42 Absolute Nucleated RBC 0.1 /100WBC 10/11/23 04:42 PT 16.6 SECONDS (11.8-14.3) 10/06/23 13:30 INR Target Range - 10/06/23 13:30 INR 1.36 (0.8-1.3) H 10/06/23 13:30 APTT 48.3 SECONDS (22.9-36.5) H 10/09/23 08:12 PTT Comment - 10/09/23 08:12 Fibrinogen 281 mg/dL (239-489) 10/09/23 08:12 Sodium 140 mmol/L (136-145) 10/11/23 04:42 Corrected Sodium TNP 10/11/23 04:42 Potassium 3.4 mmol/L (3.5-5.1) L 10/11/23 04:42 Chloride 109 mmol/L (98-107) H 10/11/23 04:42 Carbon Dioxide 24.9 mmol/L (21-32) 10/11/23 04:42 BUN 13 mg/dL (7-18) 10/11/23 04:42 Creatinine 1.05 mg/dL (0.55-1.02) H 10/11/23 04:42 Est GFR (MDRD) Af Amer > 60 (>60) 10/11/23 04:42 Est GFR (MDRD) Non-Af 53 (>60) L 10/11/23 04:42 Glucose 90 mg/dL (65-99) 10/11/23 04:42 Calcium 8.0 mg/dL (8.5-10.1) L 10/11/23 04:42 Corrected Calcium 9.8 mg/dL (8.5-10.1) 10/11/23 04:42 Total Bilirubin 0.50 mg/dL (0.2-1.0) 10/11/23 04:42 AST 30 Units/L (15-37) 10/11/23 04:42 ALT 23 Units/L (12-78) 10/11/23 04:42 Alkaline Phosphatase 81 Units/L (46-116) 10/11/23 04:42 Total Protein 5.1 g/dL (6.4-8.2) L 10/11/23 04:42 Albumin 1.8 g/dL (3.4-5.0) L 10/11/23 04:42 Globulin 3.3 g/dL (2.5-4.5) 10/11/23 04:42 Albumin/Globulin Ratio 0.5 Ratio (1.1-2.1) L 10/11/23 04:42 Specimen Type Catherized urine 10/06/23 11:00 Urine Color Yellow (YELLOW) 10/06/23 11:00 Urine Appearance Clear (CLEAR) 10/06/23 11:00 Urine pH 5.0 (5.0 - 8.0) 10/06/23 11:00 Ur Specific [place] 1.020 (1.000-1.030) 10/06/23 11:00 Urine Protein 1+ (NEGATIVE) 10/06/23 11:00 Urine Glucose (UA) Negative (NEGATIVE) 10/06/23 11:00 Urine Ketones Negative (NEGATIVE) 10/06/23 11:00 Urine Blood 2+ (NEGATIVE) 10/06/23 11:00 Urine Nitrite Negative (NEGATIVE) 10/06/23 11:00 Urine Bilirubin Negative (NEGATIVE) 10/06/23 11:00 Urine Urobilinogen Normal (NORMAL) 10/06/23 11:00 Ur Leukocyte Esterase 1+ (NEGATIVE) 10/06/23 11:00 Urine RBC 10-20 /HPF (0-3) A 10/06/23 11:00 Urine WBC 5-10 /HPF (0-5) A 10/06/23 11:00 Ur Squamous Epith Cells Many /HPF (NEGATIVE) 10/06/23 11:00 Calcium Oxalate Crystal Moderate /HPF (NEGATIVE) 10/06/23 11:00 Urine Bacteria 1+ /HPF (NEGATIVE) 10/06/23 11:00 Ur Culture Indicated? No/not indicated 10/06/23 11:00 Vancomycin Trough 25.0 ug/mL (15-20) H* 10/10/23 08:11 Plan (1) Right leg DVT: Status: Acute Qualifiers: Affected thrombotic vein of extremity: unspecified vein of extremity Chronicity: acute Qualified Code(s): I82.401 - Acute embolism and thrombosis of unspecified deep veins of right lower extremity (2) Cellulitis: Status: Acute Qualifiers: Site of cellulitis: extremity Site of cellulitis of extremity: lower extremity Laterality: left Qualified Code(s): L03.116 - Cellulitis of left lower limb (3) Chronic venous stasis dermatitis of both lower extremities: Status: Acute (4) Chronic venous insufficiency: Status: Acute (5) Pain and swelling of lower extremity: Status: Acute Qualifiers: Laterality: left Qualified Code(s): M79.605 - Pain in left leg; M79.89 - Other specified soft tissue disorders (6) Generalized weakness: Status: Acute (7) Coronary artery disease: Status: None Qualifiers: Coronary Disease-Associated Artery/Lesion type: unspecified vessel or lesion type [place] vs. transplanted heart: [place] heart Associated angina: with unspecified form of angina Qualified Code(s): I25.119 - Atherosclerotic heart disease of [place] coronary artery with unspecified angina pectoris (8) History of pulmonary embolism: Status: None (9) Hypertension: Status: None Qualifiers: Hypertension type: primary hypertension Qualified Code(s): I10 - Essential (primary) hypertension
--- NOTE | 2023-10-11 06:18 | PCM.PROG ---
Progress Note Progress Note for Day of Date of Exam: 10/10/23 Subjective Subjective: Patient is resting at bed. No acute events overnight. 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 She is currently receiving IV antibiotics and pain medicine. Labs/imaging reviewed Wbc: 7.2, Hgb 10.6, Plt 207, Na 141, K 3.3, Creatinine 1.18, Glucose 83 Plan: continue current treatment with IV antibiotics. Follow surgery recommendations. Plan for home discharge soon with home health and home physical therapy. Continue to monitor AM labs/imaging. Past Medical Family Social History Allergies: Allergies cefdinir Allergy (Unknown, Verified 05/10/22 11:31) Reason: Drug allergy levofloxacin [Levaquin] Allergy (Unknown, Verified 02/13/13 11:24) sulfacetamide Allergy (Unknown, Verified 05/10/22 11:31) Reason: Drug allergy sulfamethoxazole [Septra] Allergy (Unknown, Verified 03/29/22 12:57) Reason: Drug allergy trimethoprim [Septra] Allergy (Unknown, Verified 03/29/22 12:57) Reason: Drug allergy nitrofurantoin [From Macrobid] Allergy (Verified 08/29/21 09:16) Sulfa (Sulfonamide Antibiotics) [SULFA] Allergy (Verified 08/29/21 09:16) Microbore Extension Set *MEDIC Allergy (Unknown, Uncoded 02/13/13 11:24) Free Text Allergy: Microbore Extension Set *MEDICAL DEVICES* Review of Systems ROS changes noted: see HPI Vital Signs and I&O's Vital Signs: Vital Signs Temperature 98.5 F Temperature 98.7 F Pulse Rate 58 Pulse Rate 58 Pulse Rate 57 Pulse Rate 59 Pulse Rate 60 Pulse Rate 62 Pulse Rate 63 Pulse Rate 63 Respiratory Rate 15 Respiratory Rate 15 Respiratory Rate 15 Respiratory Rate 17 Respiratory Rate 15 Respiratory Rate 14 Respiratory Rate 14 Respiratory Rate 16 Blood Pressure 136/60 Blood Pressure 136/62 Blood Pressure 135/60 Blood Pressure 115/60 Blood Pressure 119/57 Blood Pressure 123/64 Blood Pressure 124/61 Blood Pressure 120/60 O2 Sat by Pulse Oximetry 96 O2 Sat by Pulse Oximetry 94 O2 Sat by Pulse Oximetry 97 O2 Sat by Pulse Oximetry 93 O2 Sat by Pulse Oximetry 92 O2 Sat by Pulse Oximetry 93 O2 Sat by Pulse Oximetry 93 O2 Sat by Pulse Oximetry 90 Intake and Output: Intake & Output 10/08/23 10/09/23 10/10/23 10/11/23 23:59 23:59 23:59 23:59 Intake Total 3694 / 3741 2337 / 2359 2831 / 2831 544 / 544 Output Total 3225 / 3315 1716 / 1866 4270 / 4345 875 / 875 Balance 469 / 426 621 / 493 -1439 / -1514 -331 / -331 Physical Exam Oriented: Normal Eyes: Normal Ear: Normal Nose: Normal Throat: Normal Cardiovascular: Normal : Other (complains of bilateral flank pain, no obvious tenderness ) Auscultation: Bowel Sounds: Normal Tenderness: Normal Skin: Other (significant swelling both legs right greater than left. Mild erythema right anterior tibial surface with multiple small ulcers each less than 1 cm over the anterior tibial surface ) Musculoskeletal: Leg (B/L chronic edema. Right leg: worsening erythema, weeping blisters with clear fluid, tender ) Psychiatric: Normal Mood Description: Calm and Appropriate Affect: Normal Speech Pattern: Clear and Appropriate Laboratory and Diagnostics 10/11/23 04:42 10/11/23 04:42 Labs: Laboratory WBC 6.1 X10^3/uL (3.6-10.0) 10/11/23 04:42 RBC 3.05 X10^6/uL (3.5-5.4) L 10/11/23 04:42 Hgb 9.8 g/dL (12.0-16.0) L 10/11/23 04:42 Hct 28.9 % (36.0-47.0) L 10/11/23 04:42 MCV 94.7 fL (80.0-100.0) 10/11/23 04:42 MCH 32.1 pg (27.0-34.0) 10/11/23 04:42 MCHC 33.9 g/dL (33.0-35.0) 10/11/23 04:42 RDW 16.1 % (11.6-16.5) 10/11/23 04:42 Plt Count 221 X10^3/uL (150.0-450.0) 10/11/23 04:42 MPV 7.7 fL (7.4-11.0) 10/11/23 04:42 Neut % (Auto) 74.3 % (42.0-75.0) 10/11/23 04:42 Lymph % (Auto) 12.3 % (21.0-51.0) L 10/11/23 04:42 [place] % (Auto) 9.5 % (0.0-13.0) 10/11/23 04:42 Eos % (Auto) 3.2 % (0.9-2.9) H 10/11/23 04:42 Baso % (Auto) 0.7 % (0.2-1.0) 10/11/23 04:42 Neut # (Auto) 4.5 x10^3/uL (2.2-4.8) 10/11/23 04:42 Lymph # (Auto) 0.8 X10^3/uL (1.3-2.9) L 10/11/23 04:42 [place] # (Auto) 0.6 x10^3/uL (0.3-0.8) 10/11/23 04:42 Eos # (Auto) 0.2 x10^3/uL (0.0-0.2) 10/11/23 04:42 Baso # (Auto) 0.0 X10^3/uL (0.0-0.1) 10/11/23 04:42 Absolute Nucleated RBC 0.1 /100WBC 10/11/23 04:42 PT 16.6 SECONDS (11.8-14.3) 10/06/23 13:30 INR Target Range - 10/06/23 13:30 INR 1.36 (0.8-1.3) H 10/06/23 13:30 APTT 48.3 SECONDS (22.9-36.5) H 10/09/23 08:12 PTT Comment - 10/09/23 08:12 Fibrinogen 281 mg/dL (239-489) 10/09/23 08:12 Sodium 140 mmol/L (136-145) 10/11/23 04:42 Corrected Sodium TNP 10/11/23 04:42 Potassium 3.4 mmol/L (3.5-5.1) L 10/11/23 04:42 Chloride 109 mmol/L (98-107) H 10/11/23 04:42 Carbon Dioxide 24.9 mmol/L (21-32) 10/11/23 04:42 BUN 13 mg/dL (7-18) 10/11/23 04:42 Creatinine 1.05 mg/dL (0.55-1.02) H 10/11/23 04:42 Est GFR (MDRD) Af Amer > 60 (>60) 10/11/23 04:42 Est GFR (MDRD) Non-Af 53 (>60) L 10/11/23 04:42 Glucose 90 mg/dL (65-99) 10/11/23 04:42 Calcium 8.0 mg/dL (8.5-10.1) L 10/11/23 04:42 Corrected Calcium 9.8 mg/dL (8.5-10.1) 10/11/23 04:42 Total Bilirubin 0.50 mg/dL (0.2-1.0) 10/11/23 04:42 AST 30 Units/L (15-37) 10/11/23 04:42 ALT 23 Units/L (12-78) 10/11/23 04:42 Alkaline Phosphatase 81 Units/L (46-116) 10/11/23 04:42 Total Protein 5.1 g/dL (6.4-8.2) L 10/11/23 04:42 Albumin 1.8 g/dL (3.4-5.0) L 10/11/23 04:42 Globulin 3.3 g/dL (2.5-4.5) 10/11/23 04:42 Albumin/Globulin Ratio 0.5 Ratio (1.1-2.1) L 10/11/23 04:42 Specimen Type Catherized urine 10/06/23 11:00 Urine Color Yellow (YELLOW) 10/06/23 11:00 Urine Appearance Clear (CLEAR) 10/06/23 11:00 Urine pH 5.0 (5.0 - 8.0) 10/06/23 11:00 Ur Specific [place] 1.020 (1.000-1.030) 10/06/23 11:00 Urine Protein 1+ (NEGATIVE) 10/06/23 11:00 Urine Glucose (UA) Negative (NEGATIVE) 10/06/23 11:00 Urine Ketones Negative (NEGATIVE) 10/06/23 11:00 Urine Blood 2+ (NEGATIVE) 10/06/23 11:00 Urine Nitrite Negative (NEGATIVE) 10/06/23 11:00 Urine Bilirubin Negative (NEGATIVE) 10/06/23 11:00 Urine Urobilinogen Normal (NORMAL) 10/06/23 11:00 Ur Leukocyte Esterase 1+ (NEGATIVE) 10/06/23 11:00 Urine RBC 10-20 /HPF (0-3) A 10/06/23 11:00 Urine WBC 5-10 /HPF (0-5) A 10/06/23 11:00 Ur Squamous Epith Cells Many /HPF (NEGATIVE) 10/06/23 11:00 Calcium Oxalate Crystal Moderate /HPF (NEGATIVE) 10/06/23 11:00 Urine Bacteria 1+ /HPF (NEGATIVE) 10/06/23 11:00 Ur Culture Indicated? No/not indicated 10/06/23 11:00 Vancomycin Trough 25.0 ug/mL (15-20) H* 10/10/23 08:11 Plan (1) Right leg DVT: Status: Acute Qualifiers: Affected thrombotic vein of extremity: unspecified vein of extremity Chronicity: acute Qualified Code(s): I82.401 - Acute embolism and thrombosis of unspecified deep veins of right lower extremity (2) Cellulitis: Status: Acute Qualifiers: Site of cellulitis: extremity Site of cellulitis of extremity: lower extremity Laterality: left Qualified Code(s): L03.116 - Cellulitis of left lower limb (3) Chronic venous stasis dermatitis of both lower extremities: Status: Acute (4) Chronic venous insufficiency: Status: Acute (5) Pain and swelling of lower extremity: Status: Acute Qualifiers: Laterality: left Qualified Code(s): M79.605 - Pain in left leg; M79.89 - Other specified soft tissue disorders (6) Generalized weakness: Status: Acute (7) Coronary artery disease: Status: None Qualifiers: Coronary Disease-Associated Artery/Lesion type: unspecified vessel or lesion type [place] vs. transplanted heart: [place] heart Associated angina: with unspecified form of angina Qualified Code(s): I25.119 - Atherosclerotic heart disease of [place] coronary artery with unspecified angina pectoris (8) History of pulmonary embolism: Status: None (9) Hypertension: Status: None Qualifiers: Hypertension type: primary hypertension Qualified Code(s): I10 - Essential (primary) hypertension
[2023-10-11] MEDS ORDERED: CONSULT PHARMACY - POTASSIUM & MAGNESIUM XX SCH (07:00)
[2023-10-11] MEDS ORDERED: PHARMACY COMMENT IV NR (08:00)
[2023-10-11] MEDS ORDERED: K-DUR TAB 20 MEQ PO SCH (09:00)
[2023-10-11] MEDS: XARELTO PO SCH ×2 (09:21→21:25)
[2023-10-11] MEDS: LOPRESSOR TAB 25 MG PO SCH ×2 (09:21→21:25)
[2023-10-11] MEDS: PLAVIX PO SCH (09:21)
[2023-10-11] MEDS: COLACE SYRUP 100 MG UDC PO SCH (09:22)
[2023-10-11] MEDS ORDERED: BUTT CREAM (COMPOUND) ONE (10:24)
[2023-10-11] MEDS: BUTT CREAM (COMPOUND) TOP PRN (10:30)
[2023-10-11] MEDS: VANCOMYCIN IV *PREMIX 750 mg/150 ML BAG 750 MG/150 ML PIGGYBACK IV SCH (10:55)
--- NOTE | 2023-10-11 11:08 | RAD ---
EXAM:CHEST, 1 VIEWHISTORY:Cough;COMPARISON:10/08/2023 .br.br.br.br enlarged with a tortuous thoracic aorta. Chronic interstitial lung changes of the right and left hemithorax are observed. Blunting of the left costophrenic angle is noted consistent with a small pleural effusion and associated subsegmental atelectasis. The bony thorax is unremarkable.IMPRESSION:Small left-sided pleural effusion with compressive atelectasis. Developing pneumonia can not be entirely excluded and continued follow up will be needed in this regard.THIS IS AN ELECTRONICALLY VERIFIED FINAL REPORT10/11/2023 11:04 AM - Electronically signed by Stefan Paiz MD
[2023-10-11] MEDS: DUONEB 0.5 MG/3 MG (3 mL) NEB SCH ×3 (13:45→20:38)
[2023-10-11] MEDS: TYLENOL 325 MG TAB PO PRN (14:33)
[2023-10-11] MEDS: PERCOCET TAB 5/325 MG PO PRN (18:00)
[2023-10-11] MEDS ORDERED: PULMICORT NEB TX 0.5 MG NEB ONE (19:57)
[2023-10-11] MEDS: PULMICORT NEB TX 0.5 MG NEB SCH (20:38)
--- NOTE | 2023-10-11 20:39 | PCM.PROG ---
Progress Note Progress Note for Day of Date of Exam: 10/11/23 Subjective Subjective: The patient is resting in the bed. No acute events overnight. 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 She is currently receiving IV antibiotics and pain medicine. The patient reports that she is alert and awake, but she reports she is still weak, and I see that the wound on her right lower extremity on the superior aspect of the medial ankle is still draining. We will continue her on IV vanco mycin and Zosyn at this time and reevaluate her again tomorrow morning. I did speak with vascular surgeon, Dr. Mccracken and from his standpoint she is good to be discharged home. However, since she still is having considerable drainage, I am going to keep her for another 24 hours to see if this slows down. The patient does report of coughing but she is not coughing up any phlegm at this time she r eports. I will go ahead and order a chest x-ray today and look at that to see if any underlying respiratory problems are developing. Possible discharge home tomorrow morning. Past Medical Family Social History Allergies: Allergies cefdinir Allergy (Unknown, Verified 05/10/22 11:31) Reason: Drug allergy levofloxacin [Levaquin] Allergy (Unknown, Verified 02/13/13 11:24) sulfacetamide Allergy (Unknown, Verified 05/10/22 11:31) Reason: Drug allergy sulfamethoxazole [Septra] Allergy (Unknown, Verified 03/29/22 12:57) Reason: Drug allergy trimethoprim [Septra] Allergy (Unknown, Verified 03/29/22 12:57) Reason: Drug allergy nitrofurantoin [From Macrobid] Allergy (Verified 08/29/21 09:16) Sulfa (Sulfonamide Antibiotics) [SULFA] Allergy (Verified 08/29/21 09:16) Microbore Extension Set *MEDIC Allergy (Unknown, Uncoded 02/13/13 11:24) Free Text Allergy: Microbore Extension Set *MEDICAL DEVICES* Review of Systems ROS: No change since H&P Vital Signs and I&O's Vital Signs: Vital Signs Temperature 97.9 F Temperature 97.7 F Pulse Rate 57 Pulse Rate 68 Pulse Rate 63 Pulse Rate 57 Pulse Rate 56 Pulse Rate 66 Pulse Rate 53 Pulse Rate 60 Pulse Rate 55 Respiratory Rate 14 Respiratory Rate 23 Respiratory Rate 18 Respiratory Rate 18 Respiratory Rate 22 Respiratory Rate 17 Respiratory Rate 16 Respiratory Rate 16 Respiratory Rate 16 Respiratory Rate 18 Respiratory Rate 19 Blood Pressure 127/64 Blood Pressure 151/74 Blood Pressure 156/76 Blood Pressure 149/63 Blood Pressure 106/65 Blood Pressure 120/59 Blood Pressure 127/69 Blood Pressure 156/66 O2 Sat by Pulse Oximetry 96 O2 Sat by Pulse Oximetry 95 O2 Sat by Pulse Oximetry 96 O2 Sat by Pulse Oximetry 95 O2 Sat by Pulse Oximetry 94 O2 Sat by Pulse Oximetry 96 O2 Sat by Pulse Oximetry 100 O2 Sat by Pulse Oximetry 97 O2 Sat by Pulse Oximetry 99 Intake and Output: Intake & Output 10/09/23 10/10/23 10/11/23 10/12/23 11:59 11:59 11:59 11:59 Intake Total 2381 / 2479 2968 / 2994 1930 / 2180 1146 / 1146 Output Total 1789 / 1829 3572 / 3697 3593 / 3793 850 / 850 Balance 592 / 650 -604 / -703 -1663 / -1613 296 / 296 Physical Exam Oriented: Normal Eyes: Normal Ear: Normal Nose: Normal Throat: Normal Respiratory: Normal Cardiovascular: Normal : Other (complains of bilateral flank pain, no obvious tenderness ) Auscultation: Bowel Sounds: Normal Tenderness: Normal Skin: Other (significant swelling both legs right greater than left. Mild erythema right anterior tibial surface with multiple small ulcers each less t [place]le 1 cm over the anterior tibial surface ) Musculoskeletal: Leg (B/L chronic edema. Right leg: worsening erythema, weeping blisters with clear fluid, tender ) Psychiatric: Normal Mood Description: Calm and Appropriate Affect: Normal Speech Pattern: Clear and Appropriate Laboratory and Diagnostics 10/11/23 04:42 10/11/23 04:42 Labs: Laboratory WBC 6.1 X10^3/uL (3.6-10.0) 10/11/23 04:42 RBC 3.05 X10^6/uL (3.5-5.4) L 10/11/23 04:42 Hgb 9.8 g/dL (12.0-16.0) L 10/11/23 04:42 Hct 28.9 % (36.0-47.0) L 10/11/23 04:42 MCV 94.7 fL (80.0-100.0) 10/11/23 04:42 MCH 32.1 pg (27.0-34.0) 10/11/23 04:42 MCHC 33.9 g/dL (33.0-35.0) 10/11/23 04:42 RDW 16.1 % (11.6-16.5) 10/11/23 04:42 Plt Count 221 X10^3/uL (150.0-450.0) 10/11/23 04:42 MPV 7.7 fL (7.4-11.0) 10/11/23 04:42 Neut % (Auto) 74.3 % (42.0-75.0) 10/11/23 04:42 Lymph % (Auto) 12.3 % (21.0-51.0) L 10/11/23 04:42 [place] % (Auto) 9.5 % (0.0-13.0) 10/11/23 04:42 Eos % (Auto) 3.2 % (0.9-2.9) H 10/11/23 04:42 Baso % (Auto) 0.7 % (0.2-1.0) 10/11/23 04:42 Neut # (Auto) 4.5 x10^3/uL (2.2-4.8) 10/11/23 04:42 Lymph # (Auto) 0.8 X10^3/uL (1.3-2.9) L 10/11/23 04:42 [place] # (Auto) 0.6 x10^3/uL (0.3-0.8) 10/11/23 04:42 Eos # (Auto) 0.2 x10^3/uL (0.0-0.2) 10/11/23 04:42 Baso # (Auto) 0.0 X10^3/uL (0.0-0.1) 10/11/23 04:42 Absolute Nucleated RBC 0.1 /100WBC 10/11/23 04:42 PT 16.6 SECONDS (11.8-14.3) 10/06/23 13:30 INR Target Range - 10/06/23 13:30 INR 1.36 (0.8-1.3) H 10/06/23 13:30 APTT 48.3 SECONDS (22.9-36.5) H 10/09/23 08:12 PTT Comment - 10/09/23 08:12 Fibrinogen 281 mg/dL (239-489) 10/09/23 08:12 Sodium 140 mmol/L (136-145) 10/11/23 04:42 Corrected Sodium TNP 10/11/23 04:42 Potassium 3.4 mmol/L (3.5-5.1) L 10/11/23 04:42 Chloride 109 mmol/L (98-107) H 10/11/23 04:42 Carbon Dioxide 24.9 mmol/L (21-32) 10/11/23 04:42 BUN 13 mg/dL (7-18) 10/11/23 04:42 Creatinine 1.05 mg/dL (0.55-1.02) H 10/11/23 04:42 Est GFR (MDRD) Af Amer > 60 (>60) 10/11/23 04:42 Est GFR (MDRD) Non-Af 53 (>60) L 10/11/23 04:42 Glucose 90 mg/dL (65-99) 10/11/23 04:42 Calcium 8.0 mg/dL (8.5-10.1) L 10/11/23 04:42 Corrected Calcium 9.8 mg/dL (8.5-10.1) 10/11/23 04:42 Magnesium 2.2 mg/dL (2.0-2.9) 10/11/23 04:42 Total Bilirubin 0.50 mg/dL (0.2-1.0) 10/11/23 04:42 AST 30 Units/L (15-37) 10/11/23 04:42 ALT 23 Units/L (12-78) 10/11/23 04:42 Alkaline Phosphatase 81 Units/L (46-116) 10/11/23 04:42 B-Natriuretic Peptide 348 pg/mL (0-79) H 10/11/23 04:42 Total Protein 5.1 g/dL (6.4-8.2) L 10/11/23 04:42 Albumin 1.8 g/dL (3.4-5.0) L 10/11/23 04:42 Globulin 3.3 g/dL (2.5-4.5) 10/11/23 04:42 Albumin/Globulin Ratio 0.5 Ratio (1.1-2.1) L 10/11/23 04:42 Specimen Type Catherized urine 10/06/23 11:00 Urine Color Yellow (YELLOW) 10/06/23 11:00 Urine Appearance Clear (CLEAR) 10/06/23 11:00 Urine pH 5.0 (5.0 - 8.0) 10/06/23 11:00 Ur Specific [place] 1.020 (1.000-1.030) 10/06/23 11:00 Urine Protein 1+ (NEGATIVE) 10/06/23 11:00 Urine Glucose (UA) Negative (NEGATIVE) 10/06/23 11:00 Urine Ketones Negative (NEGATIVE) 10/06/23 11:00 Urine Blood 2+ (NEGATIVE) 10/06/23 11:00 Urine Nitrite Negative (NEGATIVE) 10/06/23 11:00 Urine Bilirubin Negative (NEGATIVE) 10/06/23 11:00 Urine Urobilinogen Normal (NORMAL) 10/06/23 11:00 Ur Leukocyte Esterase 1+ (NEGATIVE) 10/06/23 11:00 Urine RBC 10-20 /HPF (0-3) A 10/06/23 11:00 Urine WBC 5-10 /HPF (0-5) A 10/06/23 11:00 Ur Squamous Epith Cells Many /HPF (NEGATIVE) 10/06/23 11:00 Calcium Oxalate Crystal Moderate /HPF (NEGATIVE) 10/06/23 11:00 Urine Bacteria 1+ /HPF (NEGATIVE) 10/06/23 11:00 Ur Culture Indicated? No/not indicated 10/06/23 11:00 Vancomycin Trough 25.0 ug/mL (15-20) H* 10/10/23 08:11 Random Vancomycin 13.1 ug/mL 10/11/23 09:07 Plan (1) Right leg DVT: Status: Acute Qualifiers: Affected thrombotic vein of extremity: unspecified vein of extremity Chronicity: acute Qualified Code(s): I82.401 - Acute embolism and thrombosis of unspecified deep veins of right lower extremity Plan: Continue the patient on Xarelto for (2) Cellulitis: Status: Acute Qualifiers: Site of cellulitis: extremity Site of cellulitis of extremity: lower extremity Laterality: left Qualified Code(s): L03.116 - Cellulitis of left lower limb Plan: Continue IV vancomycin and Zosyn. (3) Chronic venous stasis dermatitis of both lower extremities: Status: Acute (4) Chronic venous insufficiency: Status: Acute (5) Pain and swelling of lower extremity: Status: Acute Qualifiers: Laterality: left Qualified Code(s): M79.605 - Pain in left leg; M79.89 - Other specified soft tissue disorders (6) Generalized weakness: Status: Acute (7) Coronary artery disease: Status: None Qualifiers: Coronary Disease-Associated Artery/Lesion type: unspecified vessel or lesion type [place] vs. transplanted heart: [place] heart Associated angina: with unspecified form of angina Qualified Code(s): I25.119 - Atherosclerotic heart disease of [place] coronary artery with unspecified angina pectoris (8) History of pulmonary embolism: Status: None (9) Hypertension: Status: None Qualifiers: Hypertension type: primary hypertension Qualified Code(s): I10 - Essential (primary) hypertension
[2023-10-11] MEDS: MELATONIN PO SCH (21:25)
[2023-10-11] MEDS: LIPITOR TAB 40 MG PO SCH (21:25)
[2023-10-12] MEDS: BUTT CREAM (COMPOUND) TOP PRN (01:35)
[2023-10-12] MEDS: PERCOCET TAB 5/325 MG PO PRN ×2 (03:45→18:14)
[2023-10-12] MEDS: ZOSYN VIAL 3.375 GRAMS 3.375 G in NS 100 ML IV 100 ML IV SCH ×3 (05:09→22:01)
[2023-10-12] MEDS: CLEOCIN 300 MG IV PREMIX 300 MG/50 ML BAG IV SCH ×3 (05:09→22:02)
[2023-10-12] MEDS: SYNTHROID 137 mcg TAB PO SCH (05:30)
[2023-10-12 05:44] LABS: EOSINOPHILS # (AUTO) 0.2 x10^3/uL (0.0-0.2); HEMATOCRIT 29.3 % (36.0-47.0); LYMPHOCYTES # (AUTO) 0.4 X10^3/uL (1.3-2.9)
[2023-10-12 05:46] LABS: CREATININE 0.93 mg/dL (0.55-1.02); VANCOMYCIN,TROUGH 13.7 ug/mL (15-20)
[2023-10-12 05:48] LABS: BASOPHILS % (AUTO) 0.2 % (0.2-1.0); EOSINOPHILS % (AUTO) 3.3 % (0.9-2.9); LYMPHOCYTES % (AUTO) 5.7 % (21.0-51.0); MEAN CORPUSCULAR HEMOGLOBIN 32.2 pg (27.0-34.0); MEAN CORPUSCULAR HGB CONC 34.1 g/dL (33.0-35.0); MEAN CORPUSCULAR VOLUME 94.5 fL (80.0-100.0); MEAN PLATELET VOLUME 7.5 fL (7.4-11.0); MONOCYTES # (AUTO) 0.5 x10^3/uL (0.3-0.8); MONOCYTES % (AUTO) 7.8 % (0.0-13.0); NEUTROPHILS # (AUTO) 5.2 x10^3/uL (2.2-4.8); PLATELET COUNT 231 X10^3/uL (150.0-450.0); RED CELL DISTRIBUTION WIDTH 15.6 % (11.6-16.5); WHITE BLOOD COUNT 6.2 X10^3/uL (3.6-10.0)
[2023-10-12 05:58] LABS: ALANINE AMINOTRANSFERASE 26 Units/L (12-78); ALBUMIN 1.9 g/dL (3.4-5.0); ALKALINE PHOSPHATASE 83 Units/L (46-116); ASPARTATE AMINO TRANSFERASE 27 Units/L (15-37); BLOOD UREA NITROGEN 11 mg/dL (7-18); CHLORIDE 108 mmol/L (98-107); COR CA(FOR HYPOALB) 9.7 mg/dL (8.5-10.1); CREATININE 0.98 mg/dL (0.55-1.02); GLUCOSE 102 mg/dL (65-99); MAGNESIUM 2.1 mg/dL (2.0-2.9); POTASSIUM 3.2 mmol/L (3.5-5.1); SODIUM 139 mmol/L (136-145); TOTAL PROTEIN 5.3 g/dL (6.4-8.2); eGFR NON BLACK RACES 57 (>60)
[2023-10-12] MEDS ORDERED: CONSULT PHARMACY - POTASSIUM & MAGNESIUM XX SCH (07:00)
[2023-10-12] MEDS: VANCOMYCIN IV *PREMIX 750 mg/150 ML BAG 750 MG/150 ML PIGGYBACK IV SCH (08:00)
[2023-10-12] MEDS ORDERED: K-DUR TAB 20 MEQ PO ONE (09:00)
[2023-10-12] MEDS: DUONEB 0.5 MG/3 MG (3 mL) NEB SCH ×4 (09:24→21:00)
[2023-10-12] MEDS: PULMICORT NEB TX 0.5 MG NEB SCH ×2 (09:24→21:00)
[2023-10-12] MEDS: COLACE SYRUP 100 MG UDC PO SCH (10:36)
[2023-10-12] MEDS: LOPRESSOR TAB 25 MG PO SCH ×2 (10:36→22:04)
[2023-10-12] MEDS: PLAVIX PO SCH (10:36)
[2023-10-12] MEDS: XARELTO PO SCH ×2 (10:36→22:04)
[2023-10-12] MEDS ORDERED: NS 250 ML IV 250 ML IV ONE (14:12)
--- NOTE | 2023-10-12 20:28 | PCM.PROG ---
Progress Note Progress Note for Day of Date of Exam: 10/12/23 Subjective Subjective: The patient is resting in the bed. No acute events overnight. 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 She is currently receiving IV antibiotics and pain medicine. The patient is sleeping this morning and very hard to arouse. The nurses tell me that she does not normally wake up until 8:00 or 9:00 in the morning. Generally, after that, she is a lot more alert, they tell me. This morning we c onsulted physical therapy to help start building up her strength. We were planning on discharging her later today if she did well but she is still feeling weak and not up to going home. Concerning the drainage of the distal right lower extremity it is not draining at this time and has less erythema and decreased cellulitis. We will plan on discharging her home tomorrow morning. Past Medical Family Social History Allergies: Allergies cefdinir Allergy (Unknown, Verified 05/10/22 11:31) Reason: Drug allergy levofloxacin [Levaquin] Allergy (Unknown, Verified 02/13/13 11:24) sulfacetamide Allergy (Unknown, Verified 05/10/22 11:31) Reason: Drug allergy sulfamethoxazole [Septra] Allergy (Unknown, Verified 03/29/22 12:57) Reason: Drug allergy trimethoprim [Septra] Allergy (Unknown, Verified 03/29/22 12:57) Reason: Drug allergy nitrofurantoin [From Macrobid] Allergy (Verified 08/29/21 09:16) Sulfa (Sulfonamide Antibiotics) [SULFA] Allergy (Verified 08/29/21 09:16) Microbore Extension Set *MEDIC Allergy (Unknown, Uncoded 02/13/13 11:24) Free Text Allergy: Microbore Extension Set *MEDICAL DEVICES* Review of Systems ROS: No change since H&P Vital Signs and I&O's Vital Signs: Vital Signs Temperature 97.8 F Pulse Rate 94 Pulse Rate 65 Pulse Rate 61 Pulse Rate 59 Pulse Rate 70 Pulse Rate 53 Respiratory Rate 17 Respiratory Rate 23 Respiratory Rate 18 Respiratory Rate 18 Blood Pressure 159/74 Blood Pressure 115/68 O2 Sat by Pulse Oximetry 100 O2 Sat by Pulse Oximetry 97 O2 Sat by Pulse Oximetry 96 O2 Sat by Pulse Oximetry 97 O2 Sat by Pulse Oximetry 93 O2 Sat by Pulse Oximetry 97 Intake and Output: Intake & Output 10/10/23 10/11/23 10/12/23 10/13/23 11:59 11:59 11:59 11:59 Intake Total 2968 / 2994 1930 / 2180 2483 / 2483 1025 / 1025 Output Total 3572 / 3697 3593 / 3793 2049 200 / 200 Balance -604 / -703 -1663 / -1613 433 / 433 825 / 825 Physical Exam Oriented: Normal Eyes: Normal Ear: Normal Nose: Normal Throat: Normal Respiratory: Normal Cardiovascular: Normal : Other (complains of bilateral flank pain, no obvious tenderness ) Auscultation: Bowel Sounds: Normal Tenderness: Normal Skin: Other (significant swelling both legs right greater than left. Mild erythema right anterior tibial surface with multiple small ulcers each less than 1 cm over the anterior tibial surface ) Musculoskeletal: Leg (B/L chronic edema. Right leg: worsening erythema, weeping blisters with clear fluid, tender ) Psychiatric: Normal Mood Description: Calm and Appropriate Affect: Normal Speech Pattern: Clear and Appropriate Laboratory and Diagnostics 10/12/23 05:01 10/12/23 05:01 Labs: Laboratory WBC 6.2 X10^3/uL (3.6-10.0) 10/12/23 05:01 RBC 3.10 X10^6/uL (3.5-5.4) L 10/12/23 05:01 Hgb 10.0 g/dL (12.0-16.0) L 10/12/23 05:01 Hct 29.3 % (36.0-47.0) L 10/12/23 05:01 MCV 94.5 fL (80.0-100.0) 10/12/23 05:01 MCH 32.2 pg (27.0-34.0) 10/12/23 05:01 MCHC 34.1 g/dL (33.0-35.0) 10/12/23 05:01 RDW 15.6 % (11.6-16.5) 10/12/23 05:01 Plt Count 231 X10^3/uL (150.0-450.0) 10/12/23 05:01 MPV 7.5 fL (7.4-11.0) 10/12/23 05:01 Neut % (Auto) 83.0 % (42.0-75.0) H 10/12/23 05:01 Lymph % (Auto) 5.7 % (21.0-51.0) L 10/12/23 05:01 [place] % (Auto) 7.8 % (0.0-13.0) 10/12/23 05:01 Eos % (Auto) 3.3 % (0.9-2.9) H 10/12/23 05:01 Baso % (Auto) 0.2 % (0.2-1.0) 10/12/23 05:01 Neut # (Auto) 5.2 x10^3/uL (2.2-4.8) H 10/12/23 05:01 Lymph # (Auto) 0.4 X10^3/uL (1.3-2.9) L 10/12/23 05:01 [place] # (Auto) 0.5 x10^3/uL (0.3-0.8) 10/12/23 05:01 Eos # (Auto) 0.2 x10^3/uL (0.0-0.2) 10/12/23 05:01 Baso # (Auto) 0.0 X10^3/uL (0.0-0.1) 10/12/23 05:01 Absolute Nucleated RBC 0.1 /100WBC 10/12/23 05:01 PT 16.6 SECONDS (11.8-14.3) 10/06/23 13:30 INR Target Range - 10/06/23 13:30 INR 1.36 (0.8-1.3) H 10/06/23 13:30 APTT 48.3 SECONDS (22.9-36.5) H 10/09/23 08:12 PTT Comment - 10/09/23 08:12 Fibrinogen 281 mg/dL (239-489) 10/09/23 08:12 Sodium 139 mmol/L (136-145) 10/12/23 05:01 Corrected Sodium TNP 10/12/23 05:01 Potassium 3.2 mmol/L (3.5-5.1) L 10/12/23 05:01 Chloride 108 mmol/L (98-107) H 10/12/23 05:01 Carbon Dioxide 25.0 mmol/L (21-32) 10/12/23 05:01 BUN 11 mg/dL (7-18) 10/12/23 05:01 Creatinine 0.93 mg/dL (0.55-1.02) 10/12/23 05:01 Creatinine 0.98 mg/dL (0.55-1.02) 10/12/23 05:01 Est GFR (MDRD) Af Amer > 60 (>60) 10/12/23 05:01 Est GFR (MDRD) Non-Af 57 (>60) L 10/12/23 05:01 Glucose 102 mg/dL (65-99) H 10/12/23 05:01 Calcium 8.0 mg/dL (8.5-10.1) L 10/12/23 05:01 Corrected Calcium 9.7 mg/dL (8.5-10.1) 10/12/23 05:01 Magnesium 2.1 mg/dL (2.0-2.9) 10/12/23 05:01 Total Bilirubin 0.60 mg/dL (0.2-1.0) 10/12/23 05:01 AST 27 Units/L (15-37) 10/12/23 05:01 ALT 26 Units/L (12-78) 10/12/23 05:01 Alkaline Phosphatase 83 Units/L (46-116) 10/12/23 05:01 B-Natriuretic Peptide 348 pg/mL (0-79) H 10/11/23 04:42 Total Protein 5.3 g/dL (6.4-8.2) L 10/12/23 05:01 Albumin 1.9 g/dL (3.4-5.0) L 10/12/23 05:01 Globulin 3.4 g/dL (2.5-4.5) 10/12/23 05:01 Albumin/Globulin Ratio 0.6 Ratio (1.1-2.1) L 10/12/23 05:01 Specimen Type Catherized urine 10/06/23 11:00 Urine Color Yellow (YELLOW) 10/06/23 11:00 Urine Appearance Clear (CLEAR) 10/06/23 11:00 Urine pH 5.0 (5.0 - 8.0) 10/06/23 11:00 Ur Specific [place] 1.020 (1.000-1.030) 10/06/23 11:00 Urine Protein 1+ (NEGATIVE) 10/06/23 11:00 Urine Glucose (UA) Negative (NEGATIVE) 10/06/23 11:00 Urine Ketones Negative (NEGATIVE) 10/06/23 11:00 Urine Blood 2+ (NEGATIVE) 10/06/23 11:00 Urine Nitrite Negative (NEGATIVE) 10/06/23 11:00 Urine Bilirubin Negative (NEGATIVE) 10/06/23 11:00 Urine Urobilinogen Normal (NORMAL) 10/06/23 11:00 Ur Leukocyte Esterase 1+ (NEGATIVE) 10/06/23 11:00 Urine RBC 10-20 /HPF (0-3) A 10/06/23 11:00 Urine WBC 5-10 /HPF (0-5) A 10/06/23 11:00 Ur Squamous Epith Cells Many /HPF (NEGATIVE) 10/06/23 11:00 Calcium Oxalate Crystal Moderate /HPF (NEGATIVE) 10/06/23 11:00 Urine Bacteria 1+ /HPF (NEGATIVE) 10/06/23 11:00 Ur Culture Indicated? No/not indicated 10/06/23 11:00 Vancomycin Trough 13.7 ug/mL (15-20) L 10/12/23 05:01 Random Vancomycin 13.1 ug/mL 10/11/23 09:07 Plan (1) Right leg DVT: Status: Acute Qualifiers: Affected thrombotic vein of extremity: unspecified vein of extremity Chronicity: acute Qualified Code(s): I82.401 - Acute embolism and thrombosis of unspecified deep veins of right lower extremity Plan: Continue the patient on Xarelto for (2) Cellulitis: Status: Acute Qualifiers: Site of cellulitis: extremity Site of cellulitis of extremity: lower extremity Laterality: left Qualified Code(s): L03.116 - Cellulitis of left lower limb Plan: Continue IV vancomycin and Zosyn. (3) Chronic venous stasis dermatitis of both lower extremities: Status: Acute (4) Chronic venous insufficiency: Status: Acute (5) Pain and swelling of lower extremity: Status: Acute Qualifiers: Laterality: left Qualified Code(s): M79.605 - Pain in left leg; M79.89 - Other specified soft tissue disorders (6) Generalized weakness: Status: Acute (7) Coronary artery disease: Status: None Qualifiers: Coronary Disease-Associated Artery/Lesion type: unspecified vessel or lesion type [place] vs. transplanted heart: [place] heart Associated angina: with unspecified form of angina Qualified Code(s): I25.119 - Atherosclerotic heart disease of [place] coronary artery with unspecified angina pectoris (8) History of pulmonary embolism: Status: None (9) Hypertension: Status: None Qualifiers: Hypertension type: primary hypertension Qualified Code(s): I10 - Essential (primary) hypertension
[2023-10-12] MEDS: LIPITOR TAB 40 MG PO SCH (22:03)
[2023-10-12] MEDS: MELATONIN PO SCH (22:03)
[2023-10-12] MEDS: NS 500 ML IV 500 ML IV PRN (22:05)
[2023-10-13] MEDS: PERCOCET TAB 5/325 MG PO PRN (04:23)
[2023-10-13] MEDS: CLEOCIN 300 MG IV PREMIX 300 MG/50 ML BAG IV SCH ×3 (06:30→21:03)
[2023-10-13] MEDS: SYNTHROID 137 mcg TAB PO SCH (06:31)
[2023-10-13] MEDS: ZOSYN VIAL 3.375 GRAMS 3.375 G in NS 100 ML IV 100 ML IV SCH ×3 (06:31→22:35)
[2023-10-13 06:47] LABS: BASOPHILS % (AUTO) 0.5 % (0.2-1.0); EOSINOPHILS # (AUTO) 0.2 x10^3/uL (0.0-0.2); EOSINOPHILS % (AUTO) 3.8 % (0.9-2.9); HEMATOCRIT 29.2 % (36.0-47.0); HEMOGLOBIN 9.9 g/dL (12.0-16.0); LYMPHOCYTES # (AUTO) 0.7 X10^3/uL (1.3-2.9); LYMPHOCYTES % (AUTO) 10.6 % (21.0-51.0); MEAN CORPUSCULAR HEMOGLOBIN 31.7 pg (27.0-34.0); MEAN CORPUSCULAR HGB CONC 33.8 g/dL (33.0-35.0); MEAN PLATELET VOLUME 7.5 fL (7.4-11.0); MONOCYTES # (AUTO) 0.6 x10^3/uL (0.3-0.8); MONOCYTES % (AUTO) 9.4 % (0.0-13.0); NEUTROPHILS # (AUTO) 4.9 x10^3/uL (2.2-4.8); NEUTROPHILS % (AUTO) 75.7 % (42.0-75.0); PLATELET COUNT 241 X10^3/uL (150.0-450.0); RED BLOOD COUNT 3.11 X10^6/uL (3.5-5.4); RED CELL DISTRIBUTION WIDTH 15.1 % (11.6-16.5); WHITE BLOOD COUNT 6.5 X10^3/uL (3.6-10.0)
[2023-10-13 06:57] LABS: ALANINE AMINOTRANSFERASE 26 Units/L (12-78); ALBUMIN 1.9 g/dL (3.4-5.0); ALKALINE PHOSPHATASE 81 Units/L (46-116); ASPARTATE AMINO TRANSFERASE 25 Units/L (15-37); BLOOD UREA NITROGEN 9 mg/dL (7-18); CALCIUM 7.9 mg/dL (8.5-10.1); CARBON DIOXIDE 24.3 mmol/L (21-32); CHLORIDE 108 mmol/L (98-107); COR CA(FOR HYPOALB) 9.6 mg/dL (8.5-10.1); CREATININE 0.84 mg/dL (0.55-1.02); GLUCOSE 99 mg/dL (65-99); MAGNESIUM 2.1 mg/dL (2.0-2.9); POTASSIUM 3.5 mmol/L (3.5-5.1); SODIUM 140 mmol/L (136-145); TOTAL PROTEIN 5.3 g/dL (6.4-8.2); eGFR NON BLACK RACES > 60 (>60)
[2023-10-13 07:03] LABS: ERYTHROCYTE SEDIMENTATION RATE 30 MM/HOUR (0-20)
[2023-10-13] MEDS ORDERED: CONSULT PHARMACY - POTASSIUM & MAGNESIUM XX SCH (08:00)
[2023-10-13] MEDS: PLAVIX PO SCH (08:41)
[2023-10-13] MEDS: LOPRESSOR TAB 25 MG PO SCH ×2 (08:41→21:05)
[2023-10-13] MEDS: COLACE SYRUP 100 MG UDC PO SCH (08:41)
[2023-10-13] MEDS: XARELTO PO SCH ×2 (08:41→21:05)
[2023-10-13] MEDS: VANCOMYCIN IV *PREMIX 750 mg/150 ML BAG 750 MG/150 ML PIGGYBACK IV SCH (08:41)
[2023-10-13] MEDS ORDERED: K-DUR TAB 20 MEQ PO SCH (09:00)
[2023-10-13] MEDS: DUONEB 0.5 MG/3 MG (3 mL) NEB SCH ×4 (09:14→21:00)
[2023-10-13] MEDS: PULMICORT NEB TX 0.5 MG NEB SCH ×2 (09:14→21:00)
--- NOTE | 2023-10-13 19:33 | PCM.PROG ---
Progress Note Progress Note for Day of Date of Exam: 10/13/23 Subjective Subjective: The patient is resting in the bed. No acute events overnight. 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 She is currently receiving IV antibiotics and pain medicine. The patient is alert this morning. She just ate her breakfast and had eaten a fair amount. She reports that she still weak and not ready to go home but she did good with physical therapy yesterday. The physical therapist told her that they thought she did well but the patient states that she did not. Will get up out of bed today to the chair since is the weekend and continue IV therapy for her cellulitis of the right lower extremity. I did check a ESR and CRP last night and this morning and her CRP has trended down since last night. I will plan on rechecking that again tomorrow morning as well as routine labs. We will continue her current treatment and hold off on her labs tomorrow since she is currently stable. Past Medical Family Social History Allergies: Allergies cefdinir Allergy (Unknown, Verified 05/10/22 11:31) Reason: Drug allergy levofloxacin [Levaquin] Allergy (Unknown, Verified 02/13/13 11:24) sulfacetamide Allergy (Unknown, Verified 05/10/22 11:31) Reason: Drug allergy sulfamethoxazole [Septra] Allergy (Unknown, Verified 03/29/22 12:57) Reason: Drug allergy trimethoprim [Septra] Allergy (Unknown, Verified 03/29/22 12:57) Reason: Drug allergy nitrofurantoin [From Macrobid] Allergy (Verified 08/29/21 09:16) Sulfa (Sulfonamide Antibiotics) [SULFA] Allergy (Verified 08/29/21 09:16) Microbore Extension Set *MEDIC Allergy (Unknown, Uncoded 02/13/13 11:24) Free Text Allergy: Microbore Extension Set *MEDICAL DEVICES* Review of Systems ROS: No change since H&P Vital Signs and I&O's Vital Signs: Vital Signs Temperature 97.7 F Temperature 97.7 F Pulse Rate 67 Pulse Rate 72 Respiratory Rate 20 Respiratory Rate 18 Respiratory Rate 20 Respiratory Rate 20 Blood Pressure 139/70 Blood Pressure 156/76 O2 Sat by Pulse Oximetry 93 O2 Sat by Pulse Oximetry 95 Intake and Output: Intake & Output 0110/11/23 10/12/23 10/13/23 11:59 11:59 11:59 11:59 Intake Total 2968 / 2994 1930 / 2180 2483 / 2483 1964 / 1964 Output Total 3572 / 3697 3593 / 3793 2049 200 / 200 Balance -604 / -703 -1663 / -1613 433 / 433 1765 / 1765 Physical Exam Oriented: Normal Eyes: Normal Ear: Normal Nose: Normal Throat: Normal Respiratory: Normal Cardiovascular: Normal : Other (complains of bilateral flank pain, no obvious tenderness ) Auscultation: Bowel Sounds: Normal Tenderness: Normal Skin: Other (significant swelling both legs right greater than left. Mild erythema right anterior tibial surface with multiple small ulcers each less sarmad n 1 cm over the anterior tibial surface ) Musculoskeletal: Leg (B/L chronic edema. Right leg: worsening erythema, weeping blisters with clear fluid, tender ) Psychiatric: Normal Mood Description: Calm and Appropriate Affect: Normal Speech Pattern: Clear and Appropriate Laboratory and Diagnostics 10/13/23 06:10 10/13/23 06:10 Labs: Laboratory WBC 6.5 X10^3/uL (3.6-10.0) 10/13/23 06:10 RBC 3.11 X10^6/uL (3.5-5.4) L 10/13/23 06:10 Hgb 9.9 g/dL (12.0-16.0) L 10/13/23 06:10 Hct 29.2 % (36.0-47.0) L 10/13/23 06:10 MCV 94.0 fL (80.0-100.0) 10/13/23 06:10 MCH 31.7 pg (27.0-34.0) 10/13/23 06:10 MCHC 33.8 g/dL (33.0-35.0) 10/13/23 06:10 RDW 15.1 % (11.6-16.5) 10/13/23 06:10 Plt Count 241 X10^3/uL (150.0-450.0) 10/13/23 06:10 MPV 7.5 fL (7.4-11.0) 10/13/23 06:10 Neut % (Auto) 75.7 % (42.0-75.0) H 10/13/23 06:10 Lymph % (Auto) 10.6 % (21.0-51.0) L 10/13/23 06:10 [place] % (Auto) 9.4 % (0.0-13.0) 10/13/23 06:10 Eos % (Auto) 3.8 % (0.9-2.9) H 10/13/23 06:10 Baso % (Auto) 0.5 % (0.2-1.0) 10/13/23 06:10 Neut # (Auto) 4.9 x10^3/uL (2.2-4.8) H 10/13/23 06:10 Lymph # (Auto) 0.7 X10^3/uL (1.3-2.9) L 10/13/23 06:10 [place] # (Auto) 0.6 x10^3/uL (0.3-0.8) 10/13/23 06:10 Eos # (Auto) 0.2 x10^3/uL (0.0-0.2) 10/13/23 06:10 Baso # (Auto) 0.0 X10^3/uL (0.0-0.1) 10/13/23 06:10 Absolute Nucleated RBC 0.0 /100WBC 10/13/23 06:10 ESR 30 MM/HOUR (0-20) H 10/13/23 06:10 PT 16.6 SECONDS (11.8-14.3) 10/06/23 13:30 INR Target Range - 10/06/23 13:30 INR 1.36 (0.8-1.3) H 10/06/23 13:30 APTT 48.3 SECONDS (22.9-36.5) H 10/09/23 08:12 PTT Comment - 10/09/23 08:12 Fibrinogen 281 mg/dL (239-489) 10/09/23 08:12 Sodium 140 mmol/L (136-145) 10/13/23 06:10 Corrected Sodium TNP 10/13/23 06:10 Potassium 3.5 mmol/L (3.5-5.1) 10/13/23 06:10 Chloride 108 mmol/L (98-107) H 10/13/23 06:10 Carbon Dioxide 24.3 mmol/L (21-32) 10/13/23 06:10 BUN 9 mg/dL (7-18) 10/13/23 06:10 Creatinine 0.84 mg/dL (0.55-1.02) 10/13/23 06:10 Est GFR (MDRD) Af Amer > 60 (>60) 10/13/23 06:10 Est GFR (MDRD) Non-Af > 60 (>60) 10/13/23 06:10 Glucose 99 mg/dL (65-99) 10/13/23 06:10 Calcium 7.9 mg/dL (8.5-10.1) L 10/13/23 06:10 Corrected Calcium 9.6 mg/dL (8.5-10.1) 10/13/23 06:10 Magnesium 2.1 mg/dL (2.0-2.9) 10/13/23 06:10 Total Bilirubin 0.50 mg/dL (0.2-1.0) 10/13/23 06:10 AST 25 Units/L (15-37) 10/13/23 06:10 ALT 26 Units/L (12-78) 10/13/23 06:10 Alkaline Phosphatase 81 Units/L (46-116) 10/13/23 06:10 C-Reactive Protein 14.90 mg/L (0-3.0) H 10/13/23 06:10 B-Natriuretic Peptide 348 pg/mL (0-79) H 10/11/23 04:42 Total Protein 5.3 g/dL (6.4-8.2) L 10/13/23 06:10 Albumin 1.9 g/dL (3.4-5.0) L 10/13/23 06:10 Globulin 3.4 g/dL (2.5-4.5) 10/13/23 06:10 Albumin/Globulin Ratio 0.6 Ratio (1.1-2.1) L 10/13/23 06:10 Specimen Type Catherized urine 10/06/23 11:00 Urine Color Yellow (YELLOW) 10/06/23 11:00 Urine Appearance Clear (CLEAR) 10/06/23 11:00 Urine pH 5.0 (5.0 - 8.0) 10/06/23 11:00 Ur Specific [place] 1.020 (1.000-1.030) 10/06/23 11:00 Urine Protein 1+ (NEGATIVE) 10/06/23 11:00 Urine Glucose (UA) Negative (NEGATIVE) 10/06/23 11:00 Urine Ketones Negative (NEGATIVE) 10/06/23 11:00 Urine Blood 2+ (NEGATIVE) 10/06/23 11:00 Urine Nitrite Negative (NEGATIVE) 10/06/23 11:00 Urine Bilirubin Negative (NEGATIVE) 10/06/23 11:00 Urine Urobilinogen Normal (NORMAL) 10/06/23 11:00 Ur Leukocyte Esterase 1+ (NEGATIVE) 10/06/23 11:00 Urine RBC 10-20 /HPF (0-3) A 10/06/23 11:00 Urine WBC 5-10 /HPF (0-5) A 10/06/23 11:00 Ur Squamous Epith Cells Many /HPF (NEGATIVE) 10/06/23 11:00 Calcium Oxalate Crystal Moderate /HPF (NEGATIVE) 10/06/23 11:00 Urine Bacteria 1+ /HPF (NEGATIVE) 10/06/23 11:00 Ur Culture Indicated? No/not indicated 10/06/23 11:00 Vancomycin Trough 13.7 ug/mL (15-20) L 10/12/23 05:01 Random Vancomycin 13.1 ug/mL 10/11/23 09:07 Plan (1) Right leg DVT: Status: Acute Qualifiers: Affected thrombotic vein of extremity: unspecified vein of extremity Chronicity: acute Qualified Code(s): I82.401 - Acute embolism and thrombosis of unspecified deep veins of right lower extremity Plan: Continue the patient on Xarelto for (2) Cellulitis: Status: Acute Qualifiers: Laterality: left Site of cellulitis: extremity Site of cellulitis of extremity: lower extremity Qualified Code(s): L03.116 - Cellulitis of left lower limb Plan: Continue IV vancomycin and Zosyn. (3) Chronic venous stasis dermatitis of both lower extremities: Status: Acute (4) Chronic venous insufficiency: Status: Acute (5) Pain and swelling of lower extremity: Status: Acute Qualifiers: Laterality: left Qualified Code(s): M79.605 - Pain in left leg; M79.89 - Other specified soft tissue disorders (6) Generalized weakness: Status: Acute (7) Coronary artery disease: Status: None Qualifiers: Associated angina: with unspecified form of angina Coronary Disease- Associated Artery/Lesion type: unspecified vessel or lesion type [place] vs. transplanted heart: [place] heart Qualified Code(s): I25.119 - Atherosclerotic heart disease of [place] coronary artery with unspecified angina pectoris (8) History of pulmonary embolism: Status: None (9) Hypertension: Status: None Qualifiers: Hypertension type: primary hypertension Qualified Code(s): I10 - Essential (primary) hypertension
[2023-10-13] MEDS: LIPITOR TAB 40 MG PO SCH (21:05)
[2023-10-13] MEDS: MELATONIN PO SCH (21:06)
[2023-10-14] MEDS: CLEOCIN 300 MG IV PREMIX 300 MG/50 ML BAG IV SCH ×3 (05:47→21:05)
[2023-10-14] MEDS: SYNTHROID 137 mcg TAB PO SCH (05:49)
[2023-10-14] MEDS: ZOSYN VIAL 3.375 GRAMS 3.375 G in NS 100 ML IV 100 ML IV SCH ×3 (06:30→21:48)
[2023-10-14 06:51] LABS: BASOPHILS % (AUTO) 0.5 % (0.2-1.0); EOSINOPHILS # (AUTO) 0.2 x10^3/uL (0.0-0.2); EOSINOPHILS % (AUTO) 3.1 % (0.9-2.9); HEMATOCRIT 28.8 % (36.0-47.0); HEMOGLOBIN 9.7 g/dL (12.0-16.0); LYMPHOCYTES # (AUTO) 0.8 X10^3/uL (1.3-2.9); LYMPHOCYTES % (AUTO) 12.3 % (21.0-51.0); MEAN CORPUSCULAR HEMOGLOBIN 31.8 pg (27.0-34.0); MEAN CORPUSCULAR HGB CONC 33.8 g/dL (33.0-35.0); MEAN CORPUSCULAR VOLUME 94.2 fL (80.0-100.0); MEAN PLATELET VOLUME 7.3 fL (7.4-11.0); MONOCYTES # (AUTO) 0.7 x10^3/uL (0.3-0.8); MONOCYTES % (AUTO) 10.5 % (0.0-13.0); NEUTROPHILS # (AUTO) 4.8 x10^3/uL (2.2-4.8); NEUTROPHILS % (AUTO) 73.6 % (42.0-75.0); PLATELET COUNT 242 X10^3/uL (150.0-450.0); RED BLOOD COUNT 3.06 X10^6/uL (3.5-5.4); RED CELL DISTRIBUTION WIDTH 15.4 % (11.6-16.5); WHITE BLOOD COUNT 6.5 X10^3/uL (3.6-10.0)
[2023-10-14 07:09] LABS: ALANINE AMINOTRANSFERASE 23 Units/L (12-78); ALKALINE PHOSPHATASE 83 Units/L (46-116); ASPARTATE AMINO TRANSFERASE 22 Units/L (15-37); BLOOD UREA NITROGEN 7 mg/dL (7-18); CALCIUM 8.1 mg/dL (8.5-10.1); CARBON DIOXIDE 23.8 mmol/L (21-32); CHLORIDE 108 mmol/L (98-107); COR CA(FOR HYPOALB) 9.7 mg/dL (8.5-10.1); CREATININE 0.86 mg/dL (0.55-1.02); GLUCOSE 99 mg/dL (65-99); POTASSIUM 3.3 mmol/L (3.5-5.1); SODIUM 141 mmol/L (136-145); TOTAL PROTEIN 5.4 g/dL (6.4-8.2); eGFR NON BLACK RACES > 60 (>60)
[2023-10-14] MEDS ORDERED: CONSULT PHARMACY - POTASSIUM & MAGNESIUM XX SCH (08:00)
[2023-10-14] MEDS: COLACE SYRUP 100 MG UDC PO SCH (08:39)
[2023-10-14] MEDS ORDERED: K-DUR TAB 20 MEQ PO SCH (09:00)
[2023-10-14] MEDS: DUONEB 0.5 MG/3 MG (3 mL) NEB SCH ×4 (09:31→21:15)
[2023-10-14] MEDS: PULMICORT NEB TX 0.5 MG NEB SCH ×2 (09:31→21:15)
[2023-10-14] MEDS: LOPRESSOR TAB 25 MG PO SCH ×2 (10:13→20:56)
[2023-10-14] MEDS: PLAVIX PO SCH (10:13)
[2023-10-14] MEDS: XARELTO PO SCH ×2 (10:14→20:56)
[2023-10-14] MEDS: VANCOMYCIN IV *PREMIX 750 mg/150 ML BAG 750 MG/150 ML PIGGYBACK IV SCH (10:14)
--- NOTE | 2023-10-14 18:43 | PCM.PROG ---
Progress Note Progress Note for Day of Date of Exam: 10/14/23 Subjective Subjective: The patient is alert this morning. She just ate her breakfast and had eaten a fair amount. She reports that she still weak and not ready to go home but she did good with physical therapy yesterday. The physical therapist told her that they thought she did well but the patient states that she did not. Will get up out of bed today to the chair since is the weekend and continue IV therapy for her cellulitis of the right lower extremity. I did check a ESR and CRP last night and this morning and her CRP has trended down since last night. I will plan on rechecking that again tomorrow morning as well as routine labs. We will continue her current treatment and hold off on her labs tomorrow since she is currently stable. Past Medical Family Social History Allergies: Allergies cefdinir Allergy (Unknown, Verified 05/10/22 11:31) Reason: Drug allergy levofloxacin [Levaquin] Allergy (Unknown, Verified 02/13/13 11:24) sulfacetamide Allergy (Unknown, Verified 05/10/22 11:31) Reason: Drug allergy sulfamethoxazole [Septra] Allergy (Unknown, Verified 03/29/22 12:57) Reason: Drug allergy trimethoprim [Septra] Allergy (Unknown, Verified 03/29/22 12:57) Reason: Drug allergy nitrofurantoin [From Macrobid] Allergy (Verified 08/29/21 09:16) Sulfa (Sulfonamide Antibiotics) [SULFA] Allergy (Verified 08/29/21 09:16) Microbore Extension Set *MEDIC Allergy (Unknown, Uncoded 02/13/13 11:24) Free Text Allergy: Microbore Extension Set *MEDICAL DEVICES* Review of Systems ROS: No change since H&P Vital Signs and I&O's Vital Signs: Vital Signs Temperature 98.7 F Temperature 98 F Pulse Rate 68 Pulse Rate 68 Respiratory Rate 20 Respiratory Rate 20 Blood Pressure 137/66 Blood Pressure 116/61 O2 Sat by Pulse Oximetry 93 O2 Sat by Pulse Oximetry 92 Intake and Output: Intake & Output 10/12/23 10/13/23 10/14/23 10/15/23 11:59 11:59 11:59 11:59 Intake Total 2483 / 2483 1965 / 1965 1359 / 1359 520 / 520 Output Total 2050 / 2050 200 / 200 Balance 433 / 433 1765 / 1765 1359 / 1359 520 / 520 Physical Exam Oriented: Normal Eyes: Normal Ear: Normal Nose: Normal Throat: Normal Respiratory: Normal Cardiovascular: Normal : Other (complains of bilateral flank pain, no obvious tenderness ) Auscultation: Bowel Sounds: Normal Tenderness: Normal Skin: Other (significant swelling both legs right greater than left. Mild erythema right anterior tibial surface with multiple small ulcers each less than 1 cm over the anterior tibial surface ) Musculoskeletal: Leg (B/L chronic edema. Right leg: worsening erythema, weeping blisters with clear fluid, tender ) Psychiatric: Normal Mood Description: Calm and Appropriate Affect: Normal Speech Pattern: Clear and Appropriate Laboratory and Diagnostics 10/14/23 06:33 10/14/23 06:33 Labs: Laboratory WBC 6.5 X10^3/uL (3.6-10.0) 10/14/23 06:33 RBC 3.06 X10^6/uL (3.5-5.4) L 10/14/23 06:33 Hgb 9.7 g/dL (12.0-16.0) L 10/14/23 06:33 Hct 28.8 % (36.0-47.0) L 10/14/23 06:33 MCV 94.2 fL (80.0-100.0) 10/14/23 06:33 MCH 31.8 pg (27.0-34.0) 10/14/23 06:33 MCHC 33.8 g/dL (33.0-35.0) 10/14/23 06:33 RDW 15.4 % (11.6-16.5) 10/14/23 06:33 Plt Count 242 X10^3/uL (150.0-450.0) 10/14/23 06:33 MPV 7.3 fL (7.4-11.0) L 10/14/23 06:33 Neut % (Auto) 73.6 % (42.0-75.0) 10/14/23 06:33 Lymph % (Auto) 12.3 % (21.0-51.0) L 10/14/23 06:33 [place] % (Auto) 10.5 % (0.0-13.0) 10/14/23 06:33 Eos % (Auto) 3.1 % (0.9-2.9) H 10/14/23 06:33 Baso % (Auto) 0.5 % (0.2-1.0) 10/14/23 06:33 Neut # (Auto) 4.8 x10^3/uL (2.2-4.8) 10/14/23 06:33 Lymph # (Auto) 0.8 X10^3/uL (1.3-2.9) L 10/14/23 06:33 [place] # (Auto) 0.7 x10^3/uL (0.3-0.8) 10/14/23 06:33 Eos # (Auto) 0.2 x10^3/uL (0.0-0.2) 10/14/23 06:33 Baso # (Auto) 0.0 X10^3/uL (0.0-0.1) 10/14/23 06:33 Absolute Nucleated RBC 0.0 /100WBC 10/14/23 06:33 ESR 30 MM/HOUR (0-20) H 10/13/23 06:10 PT 16.6 SECONDS (11.8-14.3) 10/06/23 13:30 INR Target Range - 10/06/23 13:30 INR 1.36 (0.8-1.3) H 10/06/23 13:30 APTT 48.3 SECONDS (22.9-36.5) H 10/09/23 08:12 PTT Comment - 10/09/23 08:12 Fibrinogen 281 mg/dL (239-489) 10/09/23 08:12 Sodium 141 mmol/L (136-145) 10/14/23 06:33 Corrected Sodium TNP 10/14/23 06:33 Potassium 3.3 mmol/L (3.5-5.1) L 10/14/23 06:33 Chloride 108 mmol/L (98-107) H 10/14/23 06:33 Carbon Dioxide 23.8 mmol/L (21-32) 10/14/23 06:33 BUN 7 mg/dL (7-18) 10/14/23 06:33 Creatinine 0.86 mg/dL (0.55-1.02) 10/14/23 06:33 Est GFR (MDRD) Af Amer > 60 (>60) 10/14/23 06:33 Est GFR (MDRD) Non-Af > 60 (>60) 10/14/23 06:33 Glucose 99 mg/dL (65-99) 10/14/23 06:33 Calcium 8.1 mg/dL (8.5-10.1) L 10/14/23 06:33 Corrected Calcium 9.7 mg/dL (8.5-10.1) 10/14/23 06:33 Magnesium 2.1 mg/dL (2.0-2.9) 10/13/23 06:10 Total Bilirubin 0.60 mg/dL (0.2-1.0) 10/14/23 06:33 AST 22 Units/L (15-37) 10/14/23 06:33 ALT 23 Units/L (12-78) 10/14/23 06:33 Alkaline Phosphatase 83 Units/L (46-116) 10/14/23 06:33 C-Reactive Protein 14.90 mg/L (0-3.0) H 10/13/23 06:10 B-Natriuretic Peptide 348 pg/mL (0-79) H 10/11/23 04:42 Total Protein 5.4 g/dL (6.4-8.2) L 10/14/23 06:33 Albumin 2.0 g/dL (3.4-5.0) L 10/14/23 06:33 Globulin 3.4 g/dL (2.5-4.5) 10/14/23 06:33 Albumin/Globulin Ratio 0.6 Ratio (1.1-2.1) L 10/14/23 06:33 Specimen Type Catherized urine 10/06/23 11:00 Urine Color Yellow (YELLOW) 10/06/23 11:00 Urine Appearance Clear (CLEAR) 10/06/23 11:00 Urine pH 5.0 (5.0 - 8.0) 10/06/23 11:00 Ur Specific [place] 1.020 (1.000-1.030) 10/06/23 11:00 Urine Protein 1+ (NEGATIVE) 10/06/23 11:00 Urine Glucose (UA) Negative (NEGATIVE) 10/06/23 11:00 Urine Ketones Negative (NEGATIVE) 10/06/23 11:00 Urine Blood 2+ (NEGATIVE) 10/06/23 11:00 Urine Nitrite Negative (NEGATIVE) 10/06/23 11:00 Urine Bilirubin Negative (NEGATIVE) 10/06/23 11:00 Urine Urobilinogen Normal (NORMAL) 10/06/23 11:00 Ur Leukocyte Esterase 1+ (NEGATIVE) 10/06/23 11:00 Urine RBC 10-20 /HPF (0-3) A 10/06/23 11:00 Urine WBC 5-10 /HPF (0-5) A 10/06/23 11:00 Ur Squamous Epith Cells Many /HPF (NEGATIVE) 10/06/23 11:00 Calcium Oxalate Crystal Moderate /HPF (NEGATIVE) 10/06/23 11:00 Urine Bacteria 1+ /HPF (NEGATIVE) 10/06/23 11:00 Ur Culture Indicated? No/not indicated 10/06/23 11:00 Vancomycin Trough 13.7 ug/mL (15-20) L 10/12/23 05:01 Random Vancomycin 13.1 ug/mL 10/11/23 09:07 Plan (1) Right leg DVT: Status: Acute Qualifiers: Affected thrombotic vein of extremity: unspecified vein of extremity Chronicity: acute Qualified Code(s): I82.401 - Acute embolism and thrombosis of unspecified deep veins of right lower extremity Plan: Continue the patient on Xarelto for (2) Cellulitis: Status: Acute Qualifiers: Site of cellulitis: extremity Site of cellulitis of extremity: lower extremity Laterality: left Qualified Code(s): L03.116 - Cellulitis of left lower limb Plan: Continue IV vancomycin and Zosyn. (3) Chronic venous stasis dermatitis of both lower extremities: Status: Acute (4) Chronic venous insufficiency: Status: Acute (5) Pain and swelling of lower extremity: Status: Acute Qualifiers: Laterality: left Qualified Code(s): M79.605 - Pain in left leg; M79.89 - Other specified soft tissue disorders (6) Generalized weakness: Status: Acute (7) Coronary artery disease: Status: None Qualifiers: Coronary Disease-Associated Artery/Lesion type: unspecified vessel or lesion type [place] vs. transplanted heart: [place] heart Associated angina: with unspecified form of angina Qualified Code(s): I25.119 - Atherosclerotic heart disease of [place] coronary artery with unspecified angina pectoris (8) History of pulmonary embolism: Status: None (9) Hypertension: Status: None Qualifiers: Hypertension type: primary hypertension Qualified Code(s): I10 - Essential (primary) hypertension
[2023-10-14] MEDS: LIPITOR TAB 40 MG PO SCH (20:56)
[2023-10-14] MEDS: MELATONIN PO SCH (20:56)
[2023-10-15] MEDS: CLEOCIN 300 MG IV PREMIX 300 MG/50 ML BAG IV SCH ×3 (05:09→21:20)
[2023-10-15] MEDS: SYNTHROID 137 mcg TAB PO SCH (05:37)
[2023-10-15] MEDS: ZOSYN VIAL 3.375 GRAMS 3.375 G in NS 100 ML IV 100 ML IV SCH (05:40)
[2023-10-15 06:11] LABS: BASOPHILS % (AUTO) 0.6 % (0.2-1.0); EOSINOPHILS # (AUTO) 0.3 x10^3/uL (0.0-0.2); EOSINOPHILS % (AUTO) 5.5 % (0.9-2.9); HEMATOCRIT 29.5 % (36.0-47.0); LYMPHOCYTES # (AUTO) 0.7 X10^3/uL (1.3-2.9); LYMPHOCYTES % (AUTO) 11.9 % (21.0-51.0); MEAN CORPUSCULAR HEMOGLOBIN 31.5 pg (27.0-34.0); MEAN CORPUSCULAR HGB CONC 33.8 g/dL (33.0-35.0); MEAN CORPUSCULAR VOLUME 93.2 fL (80.0-100.0); MEAN PLATELET VOLUME 7.7 fL (7.4-11.0); MONOCYTES # (AUTO) 0.7 x10^3/uL (0.3-0.8); MONOCYTES % (AUTO) 11.2 % (0.0-13.0); NEUTROPHILS # (AUTO) 4.2 x10^3/uL (2.2-4.8); NEUTROPHILS % (AUTO) 70.8 % (42.0-75.0); PLATELET COUNT 271 X10^3/uL (150.0-450.0); RED BLOOD COUNT 3.17 X10^6/uL (3.5-5.4); RED CELL DISTRIBUTION WIDTH 15.8 % (11.6-16.5); WHITE BLOOD COUNT 5.9 X10^3/uL (3.6-10.0)
[2023-10-15 06:31] LABS: ALANINE AMINOTRANSFERASE 25 Units/L (12-78); ALKALINE PHOSPHATASE 85 Units/L (46-116); ASPARTATE AMINO TRANSFERASE 22 Units/L (15-37); BLOOD UREA NITROGEN 5 mg/dL (7-18); CALCIUM 7.9 mg/dL (8.5-10.1); CARBON DIOXIDE 23.1 mmol/L (21-32); CHLORIDE 109 mmol/L (98-107); COR CA(FOR HYPOALB) 9.5 mg/dL (8.5-10.1); CREATININE 0.88 mg/dL (0.55-1.02); GLUCOSE 90 mg/dL (65-99); POTASSIUM 3.4 mmol/L (3.5-5.1); SODIUM 143 mmol/L (136-145); TOTAL PROTEIN 5.7 g/dL (6.4-8.2); eGFR NON BLACK RACES > 60 (>60)
[2023-10-15] MEDS ORDERED: CONSULT PHARMACY - POTASSIUM & MAGNESIUM XX SCH ×2 (07:00→08:00)
[2023-10-15] MEDS: COLACE SYRUP 100 MG UDC PO SCH (08:59)
[2023-10-15] MEDS: PLAVIX PO SCH (09:00)
[2023-10-15] MEDS: LOPRESSOR TAB 25 MG PO SCH ×2 (09:00→20:32)
[2023-10-15] MEDS ORDERED: K-DUR TAB 20 MEQ PO SCH (09:00)
[2023-10-15] MEDS: XARELTO PO SCH ×2 (09:00→20:32)
[2023-10-15] MEDS: PULMICORT NEB TX 0.5 MG NEB SCH ×2 (09:14→20:10)
[2023-10-15] MEDS: DUONEB 0.5 MG/3 MG (3 mL) NEB SCH ×4 (09:14→20:10)
[2023-10-15 10:28] LABS: CREATININE 0.96 mg/dL (0.55-1.02); VANCOMYCIN,TROUGH 10.5 ug/mL (15-20)
[2023-10-15] MEDS: VANCOMYCIN IV *PREMIX 750 mg/150 ML BAG 750 MG/150 ML PIGGYBACK IV SCH (10:47)
[2023-10-15] MEDS ORDERED: LOMOTIL PO ONE (13:07)
[2023-10-15] MEDS: PERCOCET TAB 5/325 MG PO PRN (13:51)
[2023-10-15] MEDS ORDERED: APLISOL ID ONE (15:15)
[2023-10-15] MEDS: LIPITOR TAB 40 MG PO SCH (20:31)
[2023-10-15] MEDS: MELATONIN PO SCH (20:32)
[2023-10-16] MEDS: BUTT CREAM (COMPOUND) TOP PRN (00:01)
[2023-10-16] MEDS: CLEOCIN 300 MG IV PREMIX 300 MG/50 ML BAG IV SCH ×3 (05:22→21:22)
[2023-10-16] MEDS: SYNTHROID 137 mcg TAB PO SCH (05:30)
[2023-10-16 06:34] LABS: BASOPHILS % (AUTO) 0.4 % (0.2-1.0); EOSINOPHILS # (AUTO) 0.3 x10^3/uL (0.0-0.2); HEMATOCRIT 30.7 % (36.0-47.0); HEMOGLOBIN 10.3 g/dL (12.0-16.0); LYMPHOCYTES # (AUTO) 0.7 X10^3/uL (1.3-2.9); MEAN CORPUSCULAR HEMOGLOBIN 32.1 pg (27.0-34.0); MEAN CORPUSCULAR HGB CONC 33.6 g/dL (33.0-35.0); MEAN CORPUSCULAR VOLUME 95.4 fL (80.0-100.0); MEAN PLATELET VOLUME 7.9 fL (7.4-11.0); MONOCYTES # (AUTO) 0.6 x10^3/uL (0.3-0.8); MONOCYTES % (AUTO) 11.7 % (0.0-13.0); NEUTROPHILS # (AUTO) 3.7 x10^3/uL (2.2-4.8); NEUTROPHILS % (AUTO) 68.9 % (42.0-75.0); PLATELET COUNT 268 X10^3/uL (150.0-450.0); RED BLOOD COUNT 3.21 X10^6/uL (3.5-5.4); RED CELL DISTRIBUTION WIDTH 15.6 % (11.6-16.5); WHITE BLOOD COUNT 5.3 X10^3/uL (3.6-10.0)
[2023-10-16 06:54] LABS: ALANINE AMINOTRANSFERASE 30 Units/L (12-78); ALKALINE PHOSPHATASE 88 Units/L (46-116); ASPARTATE AMINO TRANSFERASE 22 Units/L (15-37); BLOOD UREA NITROGEN 6 mg/dL (7-18); CALCIUM 7.9 mg/dL (8.5-10.1); CARBON DIOXIDE 24.5 mmol/L (21-32); CHLORIDE 109 mmol/L (98-107); COR CA(FOR HYPOALB) 9.5 mg/dL (8.5-10.1); CREATININE 0.82 mg/dL (0.55-1.02); GLUCOSE 91 mg/dL (65-99); POTASSIUM 3.2 mmol/L (3.5-5.1); SODIUM 143 mmol/L (136-145); TOTAL PROTEIN 5.7 g/dL (6.4-8.2); eGFR NON BLACK RACES > 60 (>60)
--- NOTE | 2023-10-16 07:32 | PCM.PROG ---
Progress Note Progress Note for Day of Date of Exam: 10/15/23 Subjective Subjective: The patient is resting in bed this morning. No acute events overnight. She is weak but continues to work well with physical therapy. Labs: Wbc 5.9, Hgb 10, Plt 271, Na 143, K 3.4, Creatinine 0.88, Glucose 90. Continue IV therapy for her cellulitis of the right lower extremity. Case management continue to work with possible outpatient rehab or home physical therapy. Otherwise, continue with current treatment plan and follow up labs in the morning. Past Medical Family Social History Allergies: Allergies cefdinir Allergy (Unknown, Verified 05/10/22 11:31) Reason: Drug allergy levofloxacin [Levaquin] Allergy (Unknown, Verified 02/13/13 11:24) sulfacetamide Allergy (Unknown, Verified 05/10/22 11:31) Reason: Drug allergy sulfamethoxazole [Septra] Allergy (Unknown, Verified 03/29/22 12:57) Reason: Drug allergy trimethoprim [Septra] Allergy (Unknown, Verified 03/29/22 12:57) Reason: Drug allergy nitrofurantoin [From Macrobid] Allergy (Verified 08/29/21 09:16) Sulfa (Sulfonamide Antibiotics) [SULFA] Allergy (Verified 08/29/21 09:16) Microbore Extension Set *MEDIC Allergy (Unknown, Uncoded 02/13/13 11:24) Free Text Allergy: Microbore Extension Set *MEDICAL DEVICES* Review of Systems ROS changes noted: see HPI Vital Signs and I&O's Vital Signs: Vital Signs Temperature 97.5 F Temperature 97.8 F Pulse Rate 69 Pulse Rate 67 Respiratory Rate 20 Respiratory Rate 18 Blood Pressure 168/78 Blood Pressure 131/68 O2 Sat by Pulse Oximetry 95 O2 Sat by Pulse Oximetry 96 Intake and Output: Intake & Output 10/13/23 10/14/23 10/15/23 10/16/23 23:59 23:59 23:59 23:59 Intake Total 1406 / 1406 1462 / 1462 1562 / 1562 182 / 182 Balance 1406 / 1406 1462 / 1462 1562 / 1562 182 / 182 Physical Exam Oriented: Normal Eyes: Normal Ear: Normal Nose: Normal Throat: Normal Respiratory: Normal Cardiovascular: Normal : Normal Auscultation: Bowel Sounds: Normal Tenderness: Normal Skin: Other (significant swelling both legs right greater than left. Mild erythema right anterior tibial surface with multiple small ulcers each less than 1 cm over the anterior tibial surface ) Musculoskeletal: Leg (B/L chronic edema. Right leg: erythema) Psychiatric: Normal Mood Description: Calm and Appropriate Affect: Normal Speech Pattern: Clear and Appropriate Laboratory and Diagnostics 10/16/23 05:19 10/16/23 05:19 Labs: Laboratory WBC 5.3 X10^3/uL (3.6-10.0) 10/16/23 05:19 RBC 3.21 X10^6/uL (3.5-5.4) L 10/16/23 05:19 Hgb 10.3 g/dL (12.0-16.0) L 10/16/23 05:19 Hct 30.7 % (36.0-47.0) L 10/16/23 05:19 MCV 95.4 fL (80.0-100.0) 10/16/23 05:19 MCH 32.1 pg (27.0-34.0) 10/16/23 05:19 MCHC 33.6 g/dL (33.0-35.0) 10/16/23 05:19 RDW 15.6 % (11.6-16.5) 10/16/23 05:19 Plt Count 268 X10^3/uL (150.0-450.0) 10/16/23 05:19 MPV 7.9 fL (7.4-11.0) 10/16/23 05:19 Neut % (Auto) 68.9 % (42.0-75.0) 10/16/23 05:19 Lymph % (Auto) 13.0 % (21.0-51.0) L 10/16/23 05:19 [place] % (Auto) 11.7 % (0.0-13.0) 10/16/23 05:19 Eos % (Auto) 6.0 % (0.9-2.9) H 10/16/23 05:19 Baso % (Auto) 0.4 % (0.2-1.0) 10/16/23 05:19 Neut # (Auto) 3.7 x10^3/uL (2.2-4.8) 10/16/23 05:19 Lymph # (Auto) 0.7 X10^3/uL (1.3-2.9) L 10/16/23 05:19 [place] # (Auto) 0.6 x10^3/uL (0.3-0.8) 10/16/23 05:19 Eos # (Auto) 0.3 x10^3/uL (0.0-0.2) H 10/16/23 05:19 Baso # (Auto) 0.0 X10^3/uL (0.0-0.1) 10/16/23 05:19 Absolute Nucleated RBC 0.0 /100WBC 10/16/23 05:19 ESR 30 MM/HOUR (0-20) H 10/13/23 06:10 PT 16.6 SECONDS (11.8-14.3) 10/06/23 13:30 INR Target Range - 10/06/23 13:30 INR 1.36 (0.8-1.3) H 10/06/23 13:30 APTT 48.3 SECONDS (22.9-36.5) H 10/09/23 08:12 PTT Comment - 10/09/23 08:12 Fibrinogen 281 mg/dL (239-489) 10/09/23 08:12 Sodium 143 mmol/L (136-145) 10/16/23 05:19 Corrected Sodium TNP 10/16/23 05:19 Potassium 3.2 mmol/L (3.5-5.1) L 10/16/23 05:19 Chloride 109 mmol/L (98-107) H 10/16/23 05:19 Carbon Dioxide 24.5 mmol/L (21-32) 10/16/23 05:19 BUN 6 mg/dL (7-18) L 10/16/23 05:19 Creatinine 0.82 mg/dL (0.55-1.02) 10/16/23 05:19 Est GFR (MDRD) Af Amer > 60 (>60) 10/16/23 05:19 Est GFR (MDRD) Non-Af > 60 (>60) 10/16/23 05:19 Glucose 91 mg/dL (65-99) 10/16/23 05:19 Calcium 7.9 mg/dL (8.5-10.1) L 10/16/23 05:19 Corrected Calcium 9.5 mg/dL (8.5-10.1) 10/16/23 05:19 Magnesium 2.0 mg/dL (2.0-2.9) 10/16/23 05:19 Total Bilirubin 0.40 mg/dL (0.2-1.0) 10/16/23 05:19 AST 22 Units/L (15-37) 10/16/23 05:19 ALT 30 Units/L (12-78) 10/16/23 05:19 Alkaline Phosphatase 88 Units/L (46-116) 10/16/23 05:19 C-Reactive Protein 14.90 mg/L (0-3.0) H 10/13/23 06:10 B-Natriuretic Peptide 348 pg/mL (0-79) H 10/11/23 04:42 Total Protein 5.7 g/dL (6.4-8.2) L 10/16/23 05:19 Albumin 2.0 g/dL (3.4-5.0) L 10/16/23 05:19 Globulin 3.7 g/dL (2.5-4.5) 10/16/23 05:19 Albumin/Globulin Ratio 0.5 Ratio (1.1-2.1) L 10/16/23 05:19 Specimen Type Catherized urine 10/06/23 11:00 Urine Color Yellow (YELLOW) 10/06/23 11:00 Urine Appearance Clear (CLEAR) 10/06/23 11:00 Urine pH 5.0 (5.0 - 8.0) 10/06/23 11:00 Ur Specific [place] 1.020 (1.000-1.030) 10/06/23 11:00 Urine Protein 1+ (NEGATIVE) 10/06/23 11:00 Urine Glucose (UA) Negative (NEGATIVE) 10/06/23 11:00 Urine Ketones Negative (NEGATIVE) 10/06/23 11:00 Urine Blood 2+ (NEGATIVE) 10/06/23 11:00 Urine Nitrite Negative (NEGATIVE) 10/06/23 11:00 Urine Bilirubin Negative (NEGATIVE) 10/06/23 11:00 Urine Urobilinogen Normal (NORMAL) 10/06/23 11:00 Ur Leukocyte Esterase 1+ (NEGATIVE) 10/06/23 11:00 Urine RBC 10-20 /HPF (0-3) A 10/06/23 11:00 Urine WBC 5-10 /HPF (0-5) A 10/06/23 11:00 Ur Squamous Epith Cells Many /HPF (NEGATIVE) 10/06/23 11:00 Calcium Oxalate Crystal Moderate /HPF (NEGATIVE) 10/06/23 11:00 Urine Bacteria 1+ /HPF (NEGATIVE) 10/06/23 11:00 Ur Culture Indicated? No/not indicated 10/06/23 11:00 Vancomycin Trough 10.5 ug/mL (15-20) L 10/15/23 09:35 Random Vancomycin 13.1 ug/mL 10/11/23 09:07 Resp Viral Panel (PCR) See scanned report 10/11/23 13:20 Plan (1) Right leg DVT: Status: Acute Qualifiers: Affected thrombotic vein of extremity: unspecified vein of extremity Chronicity: acute Qualified Code(s): I82.401 - Acute embolism and thrombosis of unspecified deep veins of right lower extremity Plan: Continue the patient on Xarelto for (2) Cellulitis: Status: Acute Qualifiers: Site of cellulitis: extremity Site of cellulitis of extremity: lower extremity Laterality: left Qualified Code(s): L03.116 - Cellulitis of left lower limb Plan: Continue IV vancomycin and Zosyn. (3) Chronic venous stasis dermatitis of both lower extremities: Status: Acute (4) Chronic venous insufficiency: Status: Acute (5) Pain and swelling of lower extremity: Status: Acute Qualifiers: Laterality: left Qualified Code(s): M79.605 - Pain in left leg; M79.89 - Other specified soft tissue disorders (6) Generalized weakness: Status: Acute (7) Coronary artery disease: Status: None Qualifiers: Coronary Disease-Associated Artery/Lesion type: unspecified vessel or lesion type [place] vs. transplanted heart: [place] heart Associated angina: with unspecified form of angina Qualified Code(s): I25.119 - Atherosclerotic heart disease of [place] coronary artery with unspecified angina pectoris (8) History of pulmonary embolism: Status: None (9) Hypertension: Status: None Qualifiers: Hypertension type: primary hypertension Qualified Code(s): I10 - Essential (primary) hypertension
[2023-10-16] MEDS ORDERED: CONSULT PHARMACY - POTASSIUM & MAGNESIUM XX SCH (09:00)
[2023-10-16] MEDS: DUONEB 0.5 MG/3 MG (3 mL) NEB SCH ×4 (09:12→20:55)
[2023-10-16] MEDS: PULMICORT NEB TX 0.5 MG NEB SCH ×2 (09:12→20:55)
[2023-10-16] MEDS: PLAVIX PO SCH (09:25)
[2023-10-16] MEDS: LOPRESSOR TAB 25 MG PO SCH ×2 (09:25→21:20)
[2023-10-16] MEDS: XARELTO PO SCH ×2 (09:26→21:21)
[2023-10-16] MEDS: VANCOMYCIN IV *PREMIX 750 mg/150 ML BAG 750 MG/150 ML PIGGYBACK IV SCH (09:26)
[2023-10-16] MEDS: K-DUR TAB 20 MEQ PO SCH ×2 (12:00→13:02)
[2023-10-16] MEDS ORDERED: ROBITUSSIN DM PO PRN (18:41)
[2023-10-16] MEDS: MELATONIN PO SCH (21:21)
[2023-10-16] MEDS: LIPITOR TAB 40 MG PO SCH (21:21)
--- NOTE | 2023-10-16 23:34 | PCM.PROG ---
Progress Note Progress Note for Day of Date of Exam: 10/16/23 Subjective Subjective: The patient is resting in bed this morning. No acute events overnight. Yesterday she worked with physical therapy and was able to walk 40 feet with assistance. Her strength continues to improve. She was supposed to be discharged with home health and physical therapy however family primarily her son is reluctant to take her home or care for her. Labs: Wbc 5.3, Hgb 10.3, Plt 268, Na 143, K 3.2, Creatinine 0.82, Glucose 91. Continue IV therapy for her cellulitis of the right lower extremity. Patient is otherwise medically stable. Case management continue to work with possible outpatient rehab or home physical therapy. Otherwise, continue with current treatment plan and follow up labs in the morning. Past Medical Family Social History Allergies: Allergies cefdinir Allergy (Unknown, Verified 05/10/22 11:31) Reason: Drug allergy levofloxacin [Levaquin] Allergy (Unknown, Verified 02/13/13 11:24) sulfacetamide Allergy (Unknown, Verified 05/10/22 11:31) Reason: Drug allergy sulfamethoxazole [Septra] Allergy (Unknown, Verified 03/29/22 12:57) Reason: Drug allergy trimethoprim [Septra] Allergy (Unknown, Verified 03/29/22 12:57) Reason: Drug allergy nitrofurantoin [From Macrobid] Allergy (Verified 08/29/21 09:16) Sulfa (Sulfonamide Antibiotics) [SULFA] Allergy (Verified 08/29/21 09:16) Microbore Extension Set *MEDIC Allergy (Unknown, Uncoded 02/13/13 11:24) Free Text Allergy: Microbore Extension Set *MEDICAL DEVICES* Review of Systems ROS changes noted: see HPI Vital Signs and I&O's Vital Signs: Vital Signs Temperature 98.6 F Temperature 98.2 F Temperature 97.6 F Pulse Rate 68 Pulse Rate 75 Pulse Rate 63 Respiratory Rate 20 Respiratory Rate 20 Respiratory Rate 18 Blood Pressure 137/68 Blood Pressure 161/76 Blood Pressure 151/68 O2 Sat by Pulse Oximetry 95 O2 Sat by Pulse Oximetry 94 O2 Sat by Pulse Oximetry 96 Intake and Output: Intake & Output 10/13/23 10/14/23 10/15/23 10/16/23 23:59 23:59 23:59 23:59 Intake Total 1406 / 1406 1462 / 1462 1562 / 1562 836 / 836 Balance 1406 / 1406 1462 / 1462 1562 / 1562 836 / 836 Physical Exam Oriented: Normal Eyes: Normal Ear: Normal Nose: Normal Throat: Normal Respiratory: Normal Cardiovascular: Normal : Normal Auscultation: Bowel Sounds: Normal Tenderness: Normal Musculoskeletal: Leg (B/L chronic edema. Right leg: erythema) Psychiatric: Normal Mood Description: Calm and Appropriate Affect: Normal Speech Pattern: Clear and Appropriate Laboratory and Diagnostics 10/16/23 05:19 10/16/23 05:19 Labs: Laboratory WBC 5.3 X10^3/uL (3.6-10.0) 10/16/23 05:19 RBC 3.21 X10^6/uL (3.5-5.4) L 10/16/23 05:19 Hgb 10.3 g/dL (12.0-16.0) L 10/16/23 05:19 Hct 30.7 % (36.0-47.0) L 10/16/23 05:19 MCV 95.4 fL (80.0-100.0) 10/16/23 05:19 MCH 32.1 pg (27.0-34.0) 10/16/23 05:19 MCHC 33.6 g/dL (33.0-35.0) 10/16/23 05:19 RDW 15.6 % (11.6-16.5) 10/16/23 05:19 Plt Count 268 X10^3/uL (150.0-450.0) 10/16/23 05:19 MPV 7.9 fL (7.4-11.0) 10/16/23 05:19 Neut % (Auto) 68.9 % (42.0-75.0) 10/16/23 05:19 Lymph % (Auto) 13.0 % (21.0-51.0) L 10/16/23 05:19 [place] % (Auto) 11.7 % (0.0-13.0) 10/16/23 05:19 Eos % (Auto) 6.0 % (0.9-2.9) H 10/16/23 05:19 Baso % (Auto) 0.4 % (0.2-1.0) 10/16/23 05:19 Neut # (Auto) 3.7 x10^3/uL (2.2-4.8) 10/16/23 05:19 Lymph # (Auto) 0.7 X10^3/uL (1.3-2.9) L 10/16/23 05:19 [place] # (Auto) 0.6 x10^3/uL (0.3-0.8) 10/16/23 05:19 Eos # (Auto) 0.3 x10^3/uL (0.0-0.2) H 10/16/23 05:19 Baso # (Auto) 0.0 X10^3/uL (0.0-0.1) 10/16/23 05:19 Absolute Nucleated RBC 0.0 /100WBC 10/16/23 05:19 ESR 30 MM/HOUR (0-20) H 10/13/23 06:10 PT 16.6 SECONDS (11.8-14.3) 10/06/23 13:30 INR Target Range - 10/06/23 13:30 INR 1.36 (0.8-1.3) H 10/06/23 13:30 APTT 48.3 SECONDS (22.9-36.5) H 10/09/23 08:12 PTT Comment - 10/09/23 08:12 Fibrinogen 281 mg/dL (239-489) 10/09/23 08:12 Sodium 143 mmol/L (136-145) 10/16/23 05:19 Corrected Sodium TNP 10/16/23 05:19 Potassium 3.2 mmol/L (3.5-5.1) L 10/16/23 05:19 Chloride 109 mmol/L (98-107) H 10/16/23 05:19 Carbon Dioxide 24.5 mmol/L (21-32) 10/16/23 05:19 BUN 6 mg/dL (7-18) L 10/16/23 05:19 Creatinine 0.82 mg/dL (0.55-1.02) 10/16/23 05:19 Est GFR (MDRD) Af Amer > 60 (>60) 10/16/23 05:19 Est GFR (MDRD) Non-Af > 60 (>60) 10/16/23 05:19 Glucose 91 mg/dL (65-99) 10/16/23 05:19 Calcium 7.9 mg/dL (8.5-10.1) L 10/16/23 05:19 Corrected Calcium 9.5 mg/dL (8.5-10.1) 10/16/23 05:19 Magnesium 2.0 mg/dL (2.0-2.9) 10/16/23 05:19 Total Bilirubin 0.40 mg/dL (0.2-1.0) 10/16/23 05:19 AST 22 Units/L (15-37) 10/16/23 05:19 ALT 30 Units/L (12-78) 10/16/23 05:19 Alkaline Phosphatase 88 Units/L (46-116) 10/16/23 05:19 C-Reactive Protein 14.90 mg/L (0-3.0) H 10/13/23 06:10 B-Natriuretic Peptide 348 pg/mL (0-79) H 10/11/23 04:42 Total Protein 5.7 g/dL (6.4-8.2) L 10/16/23 05:19 Albumin 2.0 g/dL (3.4-5.0) L 10/16/23 05:19 Globulin 3.7 g/dL (2.5-4.5) 10/16/23 05:19 Albumin/Globulin Ratio 0.5 Ratio (1.1-2.1) L 10/16/23 05:19 Specimen Type Catherized urine 10/06/23 11:00 Urine Color Yellow (YELLOW) 10/06/23 11:00 Urine Appearance Clear (CLEAR) 10/06/23 11:00 Urine pH 5.0 (5.0 - 8.0) 10/06/23 11:00 Ur Specific [place] 1.020 (1.000-1.030) 10/06/23 11:00 Urine Protein 1+ (NEGATIVE) 10/06/23 11:00 Urine Glucose (UA) Negative (NEGATIVE) 10/06/23 11:00 Urine Ketones Negative (NEGATIVE) 10/06/23 11:00 Urine Blood 2+ (NEGATIVE) 10/06/23 11:00 Urine Nitrite Negative (NEGATIVE) 10/06/23 11:00 Urine Bilirubin Negative (NEGATIVE) 10/06/23 11:00 Urine Urobilinogen Normal (NORMAL) 10/06/23 11:00 Ur Leukocyte Esterase 1+ (NEGATIVE) 10/06/23 11:00 Urine RBC 10-20 /HPF (0-3) A 10/06/23 11:00 Urine WBC 5-10 /HPF (0-5) A 10/06/23 11:00 Ur Squamous Epith Cells Many /HPF (NEGATIVE) 10/06/23 11:00 Calcium Oxalate Crystal Moderate /HPF (NEGATIVE) 10/06/23 11:00 Urine Bacteria 1+ /HPF (NEGATIVE) 10/06/23 11:00 Ur Culture Indicated? No/not indicated 10/06/23 11:00 Vancomycin Trough 10.5 ug/mL (15-20) L 10/15/23 09:35 Random Vancomycin 13.1 ug/mL 10/11/23 09:07 Resp Viral Panel (PCR) See scanned report 10/11/23 13:20 Plan (1) Right leg DVT: Status: Acute Qualifiers: Affected thrombotic vein of extremity: unspecified vein of extremity Chronicity: acute Qualified Code(s): I82.401 - Acute embolism and thrombosis of unspecified deep veins of right lower extremity Plan: Continue the patient on Xarelto for (2) Cellulitis: Status: Acute Qualifiers: Site of cellulitis: extremity Site of cellulitis of extremity: lower extremity Laterality: left Qualified Code(s): L03.116 - Cellulitis of left lower limb Plan: Continue IV vancomycin and Zosyn. (3) Chronic venous stasis dermatitis of both lower extremities: Status: Acute (4) Chronic venous insufficiency: Status: Acute (5) Pain and swelling of lower extremity: Status: Acute Qualifiers: Laterality: left Qualified Code(s): M79.605 - Pain in left leg; M79.89 - Other specified soft tissue disorders (6) Generalized weakness: Status: Acute (7) Coronary artery disease: Status: None Qualifiers: Coronary Disease-Associated Artery/Lesion type: unspecified vessel or lesion type [place] vs. transplanted heart: [place] heart Associated angina: with unspecified form of angina Qualified Code(s): I25.119 - Atherosclerotic heart disease of [place] coronary artery with unspecified angina pectoris (8) History of pulmonary embolism: Status: None (9) Hypertension: Status: None Qualifiers: Hypertension type: primary hypertension Qualified Code(s): I10 - E ssential (primary) hypertension
[2023-10-17] MEDS: CLEOCIN 300 MG IV PREMIX 300 MG/50 ML BAG IV SCH (05:09)
[2023-10-17] MEDS: SYNTHROID 137 mcg TAB PO SCH (05:41)
[2023-10-17 06:27] LABS: BASOPHILS % (AUTO) 0.5 % (0.2-1.0); EOSINOPHILS # (AUTO) 0.2 x10^3/uL (0.0-0.2); EOSINOPHILS % (AUTO) 4.4 % (0.9-2.9); HEMATOCRIT 28.9 % (36.0-47.0); HEMOGLOBIN 9.8 g/dL (12.0-16.0); LYMPHOCYTES % (AUTO) 17.4 % (21.0-51.0); MEAN CORPUSCULAR HEMOGLOBIN 31.7 pg (27.0-34.0); MEAN CORPUSCULAR HGB CONC 33.8 g/dL (33.0-35.0); MEAN CORPUSCULAR VOLUME 93.9 fL (80.0-100.0); MEAN PLATELET VOLUME 7.9 fL (7.4-11.0); MONOCYTES # (AUTO) 0.6 x10^3/uL (0.3-0.8); MONOCYTES % (AUTO) 10.4 % (0.0-13.0); NEUTROPHILS # (AUTO) 3.8 x10^3/uL (2.2-4.8); NEUTROPHILS % (AUTO) 67.3 % (42.0-75.0); PLATELET COUNT 284 X10^3/uL (150.0-450.0); RED BLOOD COUNT 3.08 X10^6/uL (3.5-5.4); RED CELL DISTRIBUTION WIDTH 15.5 % (11.6-16.5); WHITE BLOOD COUNT 5.6 X10^3/uL (3.6-10.0)
[2023-10-17 06:41] LABS: ALANINE AMINOTRANSFERASE 30 Units/L (12-78); ALKALINE PHOSPHATASE 94 Units/L (46-116); ASPARTATE AMINO TRANSFERASE 30 Units/L (15-37); BLOOD UREA NITROGEN 6 mg/dL (7-18); CALCIUM 7.9 mg/dL (8.5-10.1); CARBON DIOXIDE 23.2 mmol/L (21-32); CHLORIDE 108 mmol/L (98-107); COR CA(FOR HYPOALB) 9.5 mg/dL (8.5-10.1); CREATININE 0.72 mg/dL (0.55-1.02); GLUCOSE 93 mg/dL (65-99); POTASSIUM 3.2 mmol/L (3.5-5.1); SODIUM 140 mmol/L (136-145); TOTAL PROTEIN 5.6 g/dL (6.4-8.2); eGFR NON BLACK RACES > 60 (>60)
[2023-10-17] MEDS: PULMICORT NEB TX 0.5 MG NEB SCH (08:59)
[2023-10-17] MEDS: DUONEB 0.5 MG/3 MG (3 mL) NEB SCH (08:59)
[2023-10-17] MEDS ORDERED: CONSULT PHARMACY - POTASSIUM & MAGNESIUM XX SCH (09:00)
[2023-10-17] MEDS ORDERED: K-DUR TAB 20 MEQ PO SCH (09:00)
[2023-10-17] MEDS ORDERED: POTASSIUM CHL 40 MEQ/NS 0.45% 500 ML 40 MEQ/500 ML BAG IV NR (09:00)
[2023-10-17] MEDS: XARELTO PO SCH (09:54)
[2023-10-17] MEDS: LOPRESSOR TAB 25 MG PO SCH (09:54)
[2023-10-17] MEDS: PLAVIX PO SCH (09:54)
[2023-10-17] MEDS: COLACE SYRUP 100 MG UDC PO SCH (09:54)
[2023-10-17] MEDS: VANCOMYCIN IV *PREMIX 750 mg/150 ML BAG 750 MG/150 ML PIGGYBACK IV SCH (09:55)
[2023-10-17 10:25] VITALS: O2SAT 94
[2023-10-17] MEDS: PERCOCET TAB 5/325 MG PO PRN (12:15)
[2023-10-17 12:16] VITALS: RESP 18
[2023-10-17 13:17] VITALS: BP 149/80; PULSE 64; TEMP 98.1
--- NOTE | 2023-10-17 13:38 | W.DIS.FURT ---
Summary of Discharge Discharge Summary of Date Date of Exam: 10/17/23 Admission Date Date of Admission: 10/05/23 Admission Diagnosis Hospital Course: Patient is a 88-year-old female that was admitted for right lower extremity cellulitis and DVT. Her hospital/treatment course included IV antibiotics and general surgery consulted-Dr Mccracken that performed EKOS thrombolysis of DVT. Pt responded well to treatments. Symptoms significantly improved and with physical therapy patient was ambulating with some assistance. Pt discharged home in stable condition with home health/PT. Rx clindamycin. Instructed to follow up with pcp in and general surgery. Vital Signs: Vital Signs (72 hours) 10/14/23 12:00 10/14/23 15:58 10/14/23 19:00 Temperature 98 F 98.7 F Pulse Rate 68 68 Respiratory Rate 20 20 Blood Pressure 116/61 137/66 O2 Sat by Pulse Oximetry 92 L 93 L Oxygen Delivery Method Room Air Room Air Room Air FIO2% 10/14/23 19:54 10/14/23 21:15 10/15/23 00:00 Temperature 97.8 F 97.7 F Pulse Rate 75 67 Respiratory Rate 18 18 Blood Pressure 160/76 158/75 O2 Sat by Pulse Oximetry 95 95 Oxygen Delivery Method Room Air Room Air Room Air FIO2% 10/15/23 04:00 10/15/23 08:00 10/15/23 09:01 Temperature 98.0 F 98 F Pulse Rate 67 68 Respiratory Rate 19 20 Blood Pressure 151/65 144/71 O2 Sat by Pulse Oximetry 95 95 Oxygen Delivery Method Room Air Room Air Room Air FIO2% 10/15/23 09:50 10/15/23 09:50 10/15/23 12:00 Temperature 98.2 F Pulse Rate 61 71 Respiratory Rate 20 Blood Pressure 141/69 O2 Sat by Pulse Oximetry 94 L 93 L Oxygen Delivery Method Room Air Room Air FIO2% 21 10/15/23 13:51 10/15/23 14:51 10/15/23 16:00 Temperature 97.4 F L Pulse Rate 64 Respiratory Rate 18 18 17 Blood Pressure 141/66 O2 Sat by Pulse Oximetry 96 Oxygen Delivery Method Room Air FIO2% 10/15/23 19:00 10/15/23 20:10 10/15/23 20:10 Temperature Pulse Rate 63 Respiratory Rate Blood Pressure O2 Sat by Pulse Oximetry 95 Oxygen Delivery Method Room Air Room Air FIO2% 10/15/23 20:00 10/16/23 00:00 10/16/23 04:00 Temperature 98.1 F 97.8 F 97.5 F L Pulse Rate 66 67 69 Respiratory Rate 18 18 20 Blood Pressure 146/72 131/68 168/78 O2 Sat by Pulse Oximetry 95 96 95 Oxygen Delivery Method Room Air Room Air Room Air FIO2% 10/16/23 08:00 10/16/23 09:25 10/16/23 09:12 Temperature 97.7 F Pulse Rate 69 Respiratory Rate 18 Blood Pressure 150/70 O2 Sat by Pulse Oximetry 95 Oxygen Delivery Method Room Air Room Air Room Air FIO2% 21 10/16/23 09:12 10/16/23 12:00 10/16/23 13:39 Temperature 97.2 F L Pulse Rate 65 65 62 Respiratory Rate 18 Blood Pressure 146/75 O2 Sat by Pulse Oximetry 94 L 96 95 Oxygen Delivery Method Room Air FIO2% 10/16/23 16:00 10/16/23 19:00 10/16/23 20:54 Temperature 97.6 F Pulse Rate 63 Respiratory Rate 18 Blood Pressure 151/68 O2 Sat by Pulse Oximetry 96 Oxygen Delivery Method Room Air Room Air Room Air FIO2% 10/16/23 20:00 10/16/23 23:00 10/17/23 04:00 Temperature 98.2 F 98.6 F 97.8 F Pulse Rate 75 68 63 Respiratory Rate 20 20 20 Blood Pressure 161/76 137/68 119/65 O2 Sat by Pulse Oximetry 94 L 95 95 Oxygen Delivery Method Room Air Room Air Room Air FIO2% 10/17/23 08:59 10/17/23 08:59 Temperature Pulse Rate 76 Respiratory Rate Blood Pressure O2 Sat by Pulse Oximetry 94 L Oxygen Delivery Method Room Air FIO2% Labs: Laboratory Last Values WBC 5.6 X10^3/uL (3.6-10.0) 10/17/23 05:36 RBC 3.08 X10^6/uL (3.5-5.4) L 10/17/23 05:36 Hgb 9.8 g/dL (12.0-16.0) L 10/17/23 05:36 Hct 28.9 % (36.0-47.0) L 10/17/23 05:36 MCV 93.9 fL (80.0-100.0) 10/17/23 05:36 MCH 31.7 pg (27.0-34.0) 10/17/23 05:36 MCHC 33.8 g/dL (33.0-35.0) 10/17/23 05:36 RDW 15.5 % (11.6-16.5) 10/17/23 05:36 Plt Count 284 X10^3/uL (150.0-450.0) 10/17/23 05:36 MPV 7.9 fL (7.4-11.0) 10/17/23 05:36 Neut % (Auto) 67.3 % (42.0-75.0) 10/17/23 05:36 Lymph % (Auto) 17.4 % (21.0-51.0) L 10/17/23 05:36 [place] % (Auto) 10.4 % (0.0-13.0) 10/17/23 05:36 Eos % (Auto) 4.4 % (0.9-2.9) H 10/17/23 05:36 Baso % (Auto) 0.5 % (0.2-1.0) 10/17/23 05:36 Neut # (Auto) 3.8 x10^3/uL (2.2-4.8) 10/17/23 05:36 Lymph # (Auto) 1.0 X10^3/uL (1.3-2.9) L 10/17/23 05:36 [place] # (Auto) 0.6 x10^3/uL (0.3-0.8) 10/17/23 05:36 Eos # (Auto) 0.2 x10^3/uL (0.0-0.2) 10/17/23 05:36 Baso # (Auto) 0.0 X10^3/uL (0.0-0.1) 10/17/23 05:36 Absolute Nucleated RBC 0.1 /100WBC 10/17/23 05:36 ESR 30 MM/HOUR (0-20) H 10/13/23 06:10 PT 16.6 SECONDS (11.8-14.3) 10/06/23 13:30 INR Target Range - 10/06/23 13:30 INR 1.36 (0.8-1.3) H 10/06/23 13:30 APTT 48.3 SECONDS (22.9-36.5) H 10/09/23 08:12 PTT Comment - 10/09/23 08:12 Fibrinogen 281 mg/dL (239-489) 10/09/23 08:12 Sodium 140 mmol/L (136-145) 10/17/23 05:36 Corrected Sodium TNP 10/17/23 05:36 Potassium 3.2 mmol/L (3.5-5.1) L 10/17/23 05:36 Chloride 108 mmol/L (98-107) H 10/17/23 05:36 Carbon Dioxide 23.2 mmol/L (21-32) 10/17/23 05:36 BUN 6 mg/dL (7-18) L 10/17/23 05:36 Creatinine 0.72 mg/dL (0.55-1.02) 10/17/23 05:36 Est GFR (MDRD) Af Amer > 60 (>60) 10/17/23 05:36 Est GFR (MDRD) Non-Af > 60 (>60) 10/17/23 05:36 Glucose 93 mg/dL (65-99) 10/17/23 05:36 Calcium 7.9 mg/dL (8.5-10.1) L 10/17/23 05:36 Corrected Calcium 9.5 mg/dL (8.5-10.1) 10/17/23 05:36 Magnesium 2.0 mg/dL (2.0-2.9) 10/17/23 05:36 Total Bilirubin 0.40 mg/dL (0.2-1.0) 10/17/23 05:36 AST 30 Units/L (15-37) 10/17/23 05:36 ALT 30 Units/L (12-78) 10/17/23 05:36 Alkaline Phosphatase 94 Units/L (46-116) 10/17/23 05:36 C-Reactive Protein 14.90 mg/L (0-3.0) H 10/13/23 06:10 B-Natriuretic Peptide 348 pg/mL (0-79) H 10/11/23 04:42 Total Protein 5.6 g/dL (6.4-8.2) L 10/17/23 05:36 Albumin 2.0 g/dL (3.4-5.0) L 10/17/23 05:36 Globulin 3.6 g/dL (2.5-4.5) 10/17/23 05:36 Albumin/Globulin Ratio 0.6 Ratio (1.1-2.1) L 10/17/23 05:36 Specimen Type Catherized urine 10/06/23 11:00 Urine Color Yellow (YELLOW) 10/06/23 11:00 Urine Appearance Clear (CLEAR) 10/06/23 11:00 Urine pH 5.0 (5.0 - 8.0) 10/06/23 11:00 Ur Specific [place] 1.020 (1.000-1.030) 10/06/23 11:00 Urine Protein 1+ (NEGATIVE) 10/06/23 11:00 Urine Glucose (UA) Negative (NEGATIVE) 10/06/23 11:00 Urine Ketones Negative (NEGATIVE) 10/06/23 11:00 Urine Blood 2+ (NEGATIVE) 10/06/23 11:00 Urine Nitrite Negative (NEGATIVE) 10/06/23 11:00 Urine Bilirubin Negative (NEGATIVE) 10/06/23 11:00 Urine Urobilinogen Normal (NORMAL) 10/06/23 11:00 Ur Leukocyte Esterase 1+ (NEGATIVE) 10/06/23 11:00 Urine RBC 10-20 /HPF (0-3) A 10/06/23 11:00 Urine WBC 5-10 /HPF (0-5) A 10/06/23 11:00 Ur Squamous Epith Cells Many /HPF (NEGATIVE) 10/06/23 11:00 Calcium Oxalate Crystal Moderate /HPF (NEGATIVE) 10/06/23 11:00 Urine Bacteria 1+ /HPF (NEGATIVE) 10/06/23 11:00 Ur Culture Indicated? No/not indicated 10/06/23 11:00 Vancomycin Trough 10.5 ug/mL (15-20) L 10/15/23 09:35 Random Vancomycin 13.1 ug/mL 10/11/23 09:07 Resp Viral Panel (PCR) See scanned report 10/11/23 13:20 Reason For Visit: LOWER EXTREMITY CELLULITIS Discharge Date Discharge Date: 10/17/23 Discharge Diagnosis All Active Problems (Updated 10/07/23 @ 10:04 by Rima Alegria) Right leg DVT (Acute) Chronic venous insufficiency (Acute) Palliative care patient (Acute) Chronic venous stasis dermatitis of both lower extremities (Acute) Fractured coccyx (Acute) Generalized weakness (Acute) Urinary incontinence (Acute) Cellulitis (Acute) Pain and swelling of lower extremity (Acute) Leg swelling (Acute) Left leg swelling (Acute) Plan of Treatment: Continue with present treatment and follow up plan. Pt is to keep follow up appointment as instructed and take medications as ordered. Discharge Medications Discharge Medications: cefdinir Allergy (Unknown, Verified 05/10/22 11:31) levofloxacin [Levaquin] Allergy (Unknown, Verified 02/13/13 11:24) sulfacetamide Allergy (Unknown, Verified 05/10/22 11:31) sulfamethoxazole [Septra] Allergy (Unknown, Verified 03/29/22 12:57) trimethoprim [Septra] Allergy (Unknown, Verified 03/29/22 12:57) nitrofurantoin [From Macrobid] Allergy (Verified 08/29/21 09:16) Sulfa (Sulfonamide Antibiotics) [SULFA] Allergy (Verified 08/29/21 09:16) Microbore Extension Set *MEDIC Allergy (Unknown, Uncoded 02/13/13 11:24) CONTINUE taking the following medications levothyroxine 50 mcg tablet 50 mcg PO 0700 10/05/23 [History] New Prescriptions clindamycin HCl 75 mg capsule 300 mg PO TID #30 caps 10/12/23 [Rx] rifampin 150 mg capsule 300 mg PO BID #20 caps 10/12/23 [Rx] rivaroxaban 10 mg tablet (Xarelto) 10 mg PO QDAY #90 tabs 10/12/23 [Rx] Discharge Disposition Assessment: No acute distress noted at discharge. Discharge Plan Discharge Plan Hospital Course: Patient is a 88-year-old female that was admitted for right lower extremity cellulitis and DVT. Her hospital/treatment course included IV antibiotics and general surgery consulted-Dr Mccracken that performed EKOS thrombolysis of DVT. Pt responded well to treatments. Symptoms significantly improved and with physical therapy patient was ambulating with some assistance. Pt discharged home in stable condition with home health/PT. Rx clindamycin. Instructed to follow up with pcp in and general surgery. Patient Disposition: HOME HEALTH SERVICE Condition: Stable Health Concerns: Post Hospitalization: new medications and changes needed to prevent readmission or further decline. Pt educated and given instructions on all concerns. Care Plan Goals: Problem: Altered Tissue Perfusion Goal: Adequate Tissue Perfusion Instructions: Follow provided instructions. Follow up with primary physician as directed. Contact primary care physician or report to the closest Emergency Room if condition worsens. Plan of Treatment: Continue with present treatment and follow up plan. Pt is to keep follow up appointment as instructed and take medications as ordered. Assessment: No acute distress noted at discharge. Prescriptions: New clindamycin HCl 75 mg Capsule 300 mg PO TID Qty: 30 0RF rifampin 150 mg Capsule 300 mg PO BID Qty: 20 0RF No Action metoprolol succinate 25 mg tablet extended release 24 hr 25 mg PO QDAY 90 Days Qty: 90 0RF tramadol 50 mg tablet 50 mg PO BID PRN (Reason: pain) 10 Days Qty: 20 0RF tizanidine 4 mg tablet 4 mg PO QHS PRN (Reason: muscle spasticity) Qty: 20 0RF triamcinolone acetonide 0.1 % ointment 1 applic topical BID PRN (Reason: rash) Qty: 30 0RF atorvastatin 40 mg tablet 40 mg PO HS 90 Days Qty: 90 0RF ibandronate 150 mg tablet 150 mg PO QMONTH Qty: 1 3RF Rx Instructions: FreeTextSi Tablet monthly; Note: [facility] pharmacy; Refills: 2; Provider: Raji Abarca clopidogrel 75 mg tablet 75 mg PO QDAY 30 Days Qty: 30 2RF Eliquis 2.5 mg tablet 2.5 mg PO BID 30 Days Qty: 60 1RF Myrbetriq 25 mg tablet extended release 24 hr 25 mg PO QDAY 30 Days Qty: 30 2RF oxycodone-acetaminophen 5-325 mg tablet 1 tab PO Q8H PRN (Reason: pain) Patient Comments: ER Doctor levothyroxine 50 mcg tablet 50 mcg PO 0700 Follow ups/Referrals Follow ups/Referrals: Zak SHARP [Other] (Referral at discharge. Services to begin at home.) Rima Alegria [Primary Care Provider] - 10/29/23 1:30 pm Sundar Mccracken [STAFF PHYSICIAN] - 10/22/23 1:30 pm Instructions Instructions: Bleeding Precautions When on Anticoagulant Therapy, Adult, Fall Prevention in the Home, Adult, [id number], Weakness, [id number], Understanding Your Risk for Falls, Cellulitis, Adult, [id number], Chronic Venous Insufficiency, How to Use a Walker, Catheter-Directed Thrombolysis, Care After, Deep Vein Thrombosis Stand Alone Forms: Post Hospital Follow Up Care
== END 2023-10-17 13:45 | disposition home health service (06) | DRG 988 ==
LOC: ICU 12:17 → MED/SURG 10-12 20:14
PROVIDERS: ADMIT Internal Medicine; ATTEND Internal Medicine
DX: Z86.718 Personal history of other venous thrombosis and embolism; I25.119 Atherosclerotic heart disease of native coronary artery with unspecified angina pectoris; L97.828 Non-pressure chronic ulcer of other part of left lower leg with other specified severity; L03.116 Cellulitis of left lower limb; I87.2 Venous insufficiency (chronic) (peripheral); R26.89 Other abnormalities of gait and mobility; M79.605 Pain in left leg; E03.8 Other specified hypothyroidism; R79.1 Abnormal coagulation profile; R79.82 Elevated C-reactive protein (CRP); M79.89 Other specified soft tissue disorders; R53.1 Weakness; I10 Essential (primary) hypertension; I82.411 Acute embolism and thrombosis of right femoral vein; E78.5 Hyperlipidemia, unspecified; R70.0 Elevated erythrocyte sedimentation rate